=== PATIENT | female | born 1945 | race Caucasian/White ===

== ENCOUNTER → 2020-03-05 10:25 | Outpatient (BNVA) | payer MEDICARE, MEDICAID, SELFPAY | PROVIDERS: Visit Provider Family Medicine Adult Medicine | DX: I25.10 Atherosclerotic heart disease of native coronary artery without angina pectoris (principal); I10 Essential (primary) hypertension; E78.5 Hyperlipidemia, unspecified; Z00.00 Encounter for general adult medical examination without abnormal findings; R73.03 Prediabetes; E66.9 Obesity, unspecified; E03.9 Hypothyroidism, unspecified; N18.9 Chronic kidney disease, unspecified; N39.3 Stress incontinence (female) (male) | CPT/HCPCS: 80053; 80061; 83036; 84443; 85025 ==

== ENCOUNTER 2020-03-27 12:09 | Outpatient (CLI) | payer MEDICARE, MEDICAID, SELFPAY ==
--- NOTE | 2020-03-27 12:26 | MM_ITS ---
WS: [id number] BILATERAL DIGITAL SCREENING MAMMOGRAM WITH CAD CLINICAL INFORMATION: SCREEN HISTORY: Screening mammogram. No current complaints. COMPARISON: January 12, 2011 TECHNIQUE: Bilateral CC and MLO views. FINDINGS: Fatty-replaced breasts bilaterally. No suspicious focal mass, asymmetry, calcifications, or architecture internship ural distortion. No evidence of malignancy. A few stable punctate calcifications. MM/[place] [id number] IMPRESSION: BI-RADS: 2-Benign FOLLOW UP: 1 Year Follow-up Recommend return to annual screening mammography.
== END 2020-03-27 12:10 | disposition home or self-care (01) ==
LOC: RADSHAW 12:16
PROVIDERS: PCP Family Medicine Adult Medicine; Visit Provider Family Medicine Adult Medicine
DX: Z12.31 Encounter for screening mammogram for malignant neoplasm of breast (principal)
CPT/HCPCS: 77067

== ENCOUNTER → 2020-05-06 15:06 | Outpatient (BNVA) | payer MEDICARE, MEDICAID, SELFPAY | PROVIDERS: PCP Family Medicine Adult Medicine; Visit Provider Nurse Practitioner Family | DX: Z20.828 Contact with and (suspected) exposure to other viral communicable diseases (principal) | CPT/HCPCS: 87635 ==

== ENCOUNTER 2020-05-08 12:44 | Outpatient (CLI) | payer MEDICARE, MEDICAID, SELFPAY ==
[2020-05-08 13:05] VITALS: BP 187/77; PULSE 67; RESP 16
[2020-05-08 13:06] VITALS: BMI 37.4
--- NOTE | 2020-05-08 13:09 | AMB.MCA ---
Patient Information Referred by: Dr Atwood Symptom onset date: 05/02/20 COVID 19 common symptoms: positive headache(s) and loss of sense of smell and/or taste Criteria/Plan Inclusion/Exclusion Criteria weight >/= 40kg, + direct test </= 10 days ago and symptom onset </= 10 days ago age >/= 65, has diabetes, has chronic kidney disease and has immunosuppressive disease not requiring hospitalization, not requiring oxygen (if not chronically on oxygen) (96% RA) and no increase oxygen requirement (if chronically on oxygen) Patient education patient/caregiver received/reviewed fact sheet, Emergency Use Authorization/unapproved drug status discussed with patient/caregiver, alternatives to this treatment discussed with patient/caregiver, risks and benefits of medication reviewed with patient/caregiver, patient/caregiver given opportunity for questions, which were answered and patient/caregiver consents to receiving Monoclonal Antibody Treatment Plan for treatment Meets criteria for Monoclonal Antibody infusion Ordering Monoclonal Antibody infusion for today
[2020-05-08 14:01] VITALS: BP 168/81; PULSE 58; RESP 16; O2SAT 97
[2020-05-08 14:30] VITALS: PULSE 59; RESP 16; O2SAT 97
[2020-05-08 14:32] VITALS: BP 184/93
[2020-05-08 15:56] VITALS: BP 183/77; PULSE 63; RESP 18; O2SAT 98
--- NOTE | 2020-05-14 15:30 | DCPLANNER ---
Addendum entered by Ilsa Espinosa 05/21/20 13:44: communications project manager called patient to check on patient after getting the BAM infusion. Patient stated that she is still tired, sleepy, and weak. Her sense of smell is better. Patient stated that she is feeling better overall. Has not been admitted to hospital. Addendum entered by Ilsa Espinosa 05/14/20 15:32: communications project manager called to check on patient after receiving the BAM infusion. Patient stated that she is feeling much better, getting her sense of smell back. Original Note: communications project manager had message that patient received the BAM infusion, case management specialist called to check on patient on 05.09.20, and wrote in spreadsheet, but forgot to make note in patients chart. Late entry - Patient stated that she toloratated the infusion well. Stated that before the infusion she had no taste, no smell, had a sore throat, had a headache, has some weakness. After the infusion, patient stated that she felt about the same, no better or no worse at this time.
== END 2020-05-08 12:45 | disposition home or self-care (01) ==
LOC: OPS 12:48
PROVIDERS: PCP Family Medicine Adult Medicine; Visit Provider Nurse Practitioner Family
DX: U07.1 COVID-19 (principal)
CPT/HCPCS: 96365; J7050

== ENCOUNTER → 2020-08-26 11:43 | Outpatient (BNVA) | payer MEDICARE, MEDICAID, SELFPAY | PROVIDERS: PCP Family Medicine Adult Medicine; Visit Provider Family Medicine Adult Medicine | DX: R73.03 Prediabetes (principal); I25.10 Atherosclerotic heart disease of native coronary artery without angina pectoris; E78.5 Hyperlipidemia, unspecified; N18.9 Chronic kidney disease, unspecified; E03.9 Hypothyroidism, unspecified; E66.9 Obesity, unspecified | CPT/HCPCS: 80053; 80061; 83036; 84443; 85007; 85027 ==

== ENCOUNTER 2020-08-29 14:05 | Outpatient (CLI) | payer MEDICARE, MEDICAID, SELFPAY ==
--- NOTE | 2020-08-29 13:30 | XR_ITS ---
WS: [id number] HIP WITH PELVIS RIGHT TECHNIQUE: 3 views of the right hip with pelvis CLINICAL INFORMATION: Continued pain in right hip, hx of hip surgery 1 year ago. COMPARISON: None. FINDINGS: Right DOMINGO with acetabular screws. Hardware appears in good position. No evidence of hardware loosenin g. Osteopenia. XR/XR hip RT 2-3V wo/w pel* [id number] IMPRESSION: Right DOMINGO appears well seated.
== END 2020-08-29 14:06 | disposition home or self-care (01) ==
LOC: RADWPI 14:10
PROVIDERS: PCP Family Medicine Adult Medicine; Visit Provider Family Medicine Adult Medicine
DX: M25.551 Pain in right hip (principal); Z96.641 Presence of right artificial hip joint
CPT/HCPCS: 73502

== ENCOUNTER → 2020-09-17 10:55 | Outpatient (BNVA) | payer MEDICARE, MEDICAID, SELFPAY | PROVIDERS: PCP Family Medicine Adult Medicine; Visit Provider Obstetrics & Gynecology | DX: R39.9 Unspecified symptoms and signs involving the genitourinary system (principal); N39.0 Urinary tract infection, site not specified; N39.3 Stress incontinence (female) (male) | CPT/HCPCS: 84315; 87086 ==

== ENCOUNTER → 2020-10-24 11:49 | Outpatient (BNVA) | payer MEDICARE, MEDICAID, SELFPAY | PROVIDERS: PCP Family Medicine Adult Medicine; Visit Provider Family Medicine Adult Medicine | DX: E03.9 Hypothyroidism, unspecified (principal); I10 Essential (primary) hypertension; N18.30 Chronic kidney disease, stage 3 unspecified; R73.03 Prediabetes; E78.5 Hyperlipidemia, unspecified; I25.10 Atherosclerotic heart disease of native coronary artery without angina pectoris; J44.9 Chronic obstructive pulmonary disease, unspecified; K21.9 Gastro-esophageal reflux disease without esophagitis; Z09 Encounter for follow-up examination after completed treatment for conditions other than malignant neoplasm | CPT/HCPCS: 80053; 83036; 84443 ==

== ENCOUNTER 2020-10-31 10:56 | Outpatient (CLI) | payer MEDICARE, MEDICAID, SELFPAY ==
--- NOTE | 2020-10-31 11:03 | USCV_ITS ---
Mahnaz Magallanes Age: 75 Gender: F : 1945 Exam Date: 10/31/2020 11:23 Ordering Phys: Deandre Corbett MD Technologist: Luba Cutler Exam Location: [facility] [place]_ Indication: KNOWN AAA HISTORY: Diameter (cm) AP x Transverse x Length Velocity (cm/s) Waveform Prox Aorta: 0.00 x 1.81 x 75.20 Mid Aorta: 1.68 x 1.87 x 85.90 Distal Aorta: 3.16 x 3.64 x 6.05 223.10 Right Iliac Prox: 0.76 x 0.65 x 357.40 Left Iliac Prox: 0.73 x 0.60 x 413.90 Stent Prox Landing x x Aneurysmal Sac Max x x Lt Lat Sac Dim Rt Lat Sac Dim Stent Dist Landing x x Right Iliac Stent x x Left Iliac Stent x x Right Renal Art Left Renal Art FINDINGS: Aneurysmal dilatation of the distal abdominal aorta measuring 3.16 x 3.64 cm. Elevated velocity in the distal abdominal aorta Markedly elevated velocities in the proximal common iliac arteries bilaterally CONCLUSIONS 1. Small infrarenal abdominal aortic aneurysm measuring 3.16 x 3.64 cm. 2. Markedly elevated Doppler flow velocities in the proximal common iliac arteries bilaterally, suggestive of greater than 70% stenosis. Consider CTA, to better evaluate the distal abdominal aorta and the proximal common iliac arteries. No similar previous studies are available for comparison Dr Lauren Garcia MD [facility] (Electronically Signed) Final Date: 01 November 2020 09:47 S
== END 2020-10-31 10:57 | disposition home or self-care (01) ==
LOC: RAD 11:00
PROVIDERS: PCP Family Medicine Adult Medicine; Visit Provider Family Medicine Adult Medicine
DX: I71.4 Abdominal aortic aneurysm, without rupture (principal)
CPT/HCPCS: 76706

== ENCOUNTER 2020-11-01 18:31 | Emergency (ER) | payer MEDICARE, MEDICAID, SELFPAY ==
[2020-11-01 19:13] VITALS: BP 188/103; PULSE 64; RESP 17; TEMP 36.7; O2SAT 94; BMI 37.0
[2020-11-01 20:27] VITALS: BP 206/104; PULSE 69; RESP 18; O2SAT 96
--- NOTE | 2020-11-01 20:39 | CTR_ITS ---
PROCEDURE INFORMATION: Exam: CT Head Without Contrast Exam date and time: 11/01/2020 8:39 PM Age: 75 years old Clinical indication: Pain; Headache; Additional info: Headache hypertension TECHNIQUE: Imaging protocol: Computed tomography of the head without contrast. Radiation optimization: All CT scans at this facility use at least one of these dose optimization techniques: automated exposure control; mA and/or kV adjustment per patient size (includes targeted exams where dose is matched to clinical indication); or iterative reconstruction. COMPARISON: No relevant prior studies available. RADIATION DOSE METRICS: Total DLP (mGy-cm): 870.45 FINDINGS: Brain: No acute intracranial hemorrhage or mass effect. There is decreased attenuation in the periventricular white matter, likely from microvascular disease. There is a very small old lacunar infarct in the left basal ganglia region. No definite acute infarct by CT. Cerebral ventricles: Ventricle size is normal for age. Paranasal sinuses: Included paranasal sinuses are essentially clear. Mastoid air cells: No significant acute finding. Bones/joints: No definite acute skull fracture. CT/CT head wo con* [id number] IMPRESSION: 1. No acute intracranial hemorrhage or mass effect. 2. Changes of microvascular disease, and very small old left lacunar infarct. 3. Other findings discussed above. Radiation Dose CTDIVOL = (mGy): DLP = 870.45 (mGy-cm)
--- NOTE | 2020-11-01 20:40 | ECG_ITS ---
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 Measurements Intervals Crooks Rate: 69 P: 60 AZ: 246 QRS: -2 QRSD: 94 T: 72 QT: 413 QTc: 444 Interpretive Statements SINUS RHYTHM WITH FIRST DEGREE AV BLOCK POSSIBLE LEFT ATRIAL ENLARGEMENT [-0.1mV P WAVE IN V1/V2] LOW QRS VOLTAGE IN PRECORDIAL LEADS [QRS DEFLECTION < 1.0 mV IN CHEST LEADS] Compared to ECG 09/14/2014 23:02:04 First degree AV block now present ST (T wave) deviation no longer present Electronically Signed On 11-01-2020 22:22:33 CDT by Tracy Wang M.D. [id number]
[2020-11-01] MEDS: enalaprilat 1.25 mg/mL Inj IVP (21:07)
[2020-11-01 21:17] LABS: Basophils # 0.1 10^3/uL (0.0-0.1); Eosinophils # 0.7 10^3/uL (0.0-0.8); Eosinophils % 8.5 %; Hematocrit 33.5 % (37.0-47.0); Hemoglobin 11.3 g/dL (11.5-15.3); Lymphocytes # 2.3 10^3/uL (0.8-4.8); Lymphocytes % 26.5 %; Mean Corpuscular HGB Conc 33.7 g/dL (30.0-36.0); Mean Corpuscular Hemoglobin 30.6 pg (28.0-34.0); Mean Corpuscular Volume 90.8 fL (81-99); Monocytes # 0.9 10^3/uL (0.2-0.9); Monocytes % 10.8 %; Neutrophils # 4.58 10^3/uL (1.8-7.7); Neutrophils % 53.1 %; Nucleated Red Blood Cells % 0 %; Platelet Count 249 10^3/cmm (130-400); Red Blood Count 3.69 10^6/uL (4.1-5.3); Red Cell Distribution Width 12.8 % (12.1-15.1); White Blood Count 8.6 10^3/uL (4.0-10.0)
[2020-11-01 21:35] VITALS: BP 168/76; PULSE 71; RESP 20; O2SAT 98
[2020-11-01 21:40] LABS: Protein Urine Trace (Negative); Urine Appearance Clear (CLEAR); Urine Color Straw (Yellow); pH Urine 7 (5-7)
[2020-11-01 21:41] LABS: Add Urine Microscopic? YES; Bilirubin Urine Neg (Negative); Blood Urine Neg (Negative); Glucose Urine UA Norm (Normal); Ketones Urine Negative (Negative); Leukocyte Esterase Urine Negative (Negative); Nitrate Urine Negative (Negative); Urobilinogen Urine Norm (Negative)
[2020-11-01 21:46] LABS: Troponin(5th) Baseline 9 ng/L (0-10)
--- NOTE | 2020-11-01 21:52 | ED_ITS ---
HPI - General Adult General: Chief complaint: General Medical Stated complaint: BP High Time Seen by Provider: 11/01/20 20:39 History of Present Illness: HPI narrative: 75-year-old female with a history of multiple medical problems including hypertension. She presents with blood pressures at home of 240/119. She has had a headache, and and neck ache for most of the day. They were also concerned about an abdominal aortic aneurysm, that was ultrasounded yesterday. The patient says she has had belly pain on and off, but this is a chronic thing, and it has not increased lately. Onset (ago): hour(s) Location: head and neck Radiation: non-radiation Severity: moderate Pain Consistency: constant Relieving factors: none Exacerbating factors: none Associated symptoms: Reports headache(s) and nausea; Deny chest pain, confusion, cough, diaphoresis, dyspnea, fevers/chills, rash or short of breath Review of Systems Const: Denies: diaphoresis Eyes: Denies: change in vision ENMT: Denies: odynophagia or sinus pain Card: Denies: chest pain Resp: Denies: dyspnea GI: Reports: nausea : Denies: dysuria Musc: Reports: neck pain; Denies: back pain Skin/Breast: Denies: rash or erythema Neuro: Reports: headache(s); Denies: confusion Psych: Denies: anxiety PFSH ED PFSH: Medical History AAA (abdominal aortic aneurysm) CAD (coronary artery disease) CKD (chronic kidney disease) stage 3, GFR 30-59 ml/min COPD (chronic obstructive pulmonary disease) Depression Fibromyalgia GERD (gastroesophageal reflux disease) History of 2019 novel coronavirus disease (COVID-19) HTN (hypertension) Hx of myocardial infarction Hyperlipidemia Hypothyroidism Obesity (BMI 35.0-39.9 without comorbidity) Prediabetes Rheumatoid arthritis Stress incontinence in female Wellness examination Surgical History History of bilateral cataract extraction History of hip replacement History of right shoulder replacement Hx of cholecystectomy Family History Other CAD (coronary artery disease) Cancer Diabetes Social History (Reviewed 09/17/20 @ 08:36 by MALU Villafana Smoking and tobacco status: current every day smoker e-cigarettes E-Cigarette Details: vaporizer device Alcohol intake: current Alcohol intake frequency: holidays/special occasions only Current occupational status: disabled Physical Exam Const: GENERAL APPEARANCE: well developed ORIENTATION/CONSCIOUSNESS: Yes oriented to person, Yes oriented to place and Yes oriented to time HENMT: COMMON NORMALS: normocephalic, external ears normal and Normal external nose present HEAD & SCALP: normocephalic FACE & SINUS: normal facial exam NOSE: Normal external nose present and No nasal discharge present EXTERNAL EAR: Yes external ears normal Eye: COMMON NORMALS: Equal, round and reactive pupils present, EOMs intact bilaterally and conjunctivae normal EYELID: eyelids normal CONJUNCTIVA: Yes conjunctivae normal PUPIL: Yes Equal, round and reactive pupils present Neck/C-Spine: GENERAL: No tracheal deviation Chest: COMMONS NORMALS: normal inspection of the chest CHEST: No tenderness Resp: COMMON NORMALS: clear to auscultation bilaterally EFFORT & INSPECTION: No tachypneic, No respiratory distress, No retractions, No uses accessory muscles and No tracheal deviation AUSCULTATION: clear to auscultation bilaterally, no rhonchi, no wheezes and lung sounds not diminished Cardio: COMMON NORMALS: regular rate and regular rhythm RATE: regular rate RHYTHM: regular rhythm HEART SOUNDS: Murmur heart sound present PERIPHERAL PULSES: radial pulses present GI: INSPECTION: No abdominal distension AUSCULTATION: No Hyperactive bowel sounds present and No Hypoactive bowel sounds present PALPATION: Yes Tenderness to palpation present (GI) (Mild diffuse), No Guarding due to palpation present (GI) and No Rigid due to palpation PERCUSSION: no dullness to percussion and no tympanic to percussion Neuro: SENSORIUM/ORIENTATION: Yes oriented to person, Yes oriented to place and Yes oriented to time Psych: COMMON NORMALS: mental status grossly normal Skin: COMMON NORMALS: no rashes or lesions noted GENERAL SKIN EXAM: no rashes or lesions noted Course Vital Signs: Vital signs: Vital Signs Temperature 98.1 F 11/01/20 19:13 Pulse Rate 70 11/01/20 22:58 Respiratory Rate 18 11/01/20 22:58 Blood Pressure 143/71 11/01/20 22:37 Pulse Oximetry 96 11/01/20 22:58 MDM - General Adult MDM Narrative: Medical decision making narrative: 75-year-old female with hypertension, headache, and concern over abdominal aneurysm scanned yesterday. Abdominal aneurysm is 3.6 cm. Family was told about the potential for peripheral vascular disease with distal abdominal aorta or iliac disease, and outpatient follow-up need for possible CTA related to that. She has a significant murmur on exam, which she says she has had for years . Enalaprilat seem to help her blood pressure significantly. We will write a prescription for lisinopril, have her check twice daily, and start the medication if blood pressure remains high. Lab Data: Labs: Lab Results 11/01/20 11/01/20 11/01/20 Range/Units 21:05 21:05 21:05 WBC 8.6 (4.0-10.0) 10^3/ uL RBC 3.69 L (4.1-5.3) 10^6/u L Hgb 11.3 L (11.5-15.3) g/dL Hct 33.5 L (37.0-47.0) % MCV 90.8 (81-99) fL MCH 30.6 (28.0-34.0) pg MCHC 33.7 (30.0-36.0) g/dL RDW 12.8 (12.1-15.1) % Plt Count 249 (130-400) 10^3/c mm MPV 11.0 H (7.4-10.4) fL Neut % (Auto) 53.1 % Lymph % (Auto) 26.5 % Wagoner % (Auto) 10.8 % Eos % (Auto) 8.5 % Baso % (Auto) 1.0 % Neut # (Auto) 4.58 (1.8-7.7) 10^3/u L Lymph # (Auto) 2.3 (0.8-4.8) 10^3/u L Wagoner # (Auto) 0.9 (0.2-0.9) 10^3/u L Eos # (Auto) 0.7 (0.0-0.8) 10^3/u L Baso # (Auto) 0.1 (0.0-0.1) 10^3/u L Nucleated RBC % (a uto) 0 % Nucleated RBCs # 0.0 /100WBC Sodium 132 L (136-145) mmol/L Potassium 4.5 (3.5-5.1) mmol/L Chloride 95 L (98-107) mmol/L Carbon Dioxide 25 (22-29) mmol/L Anion Gap 16.5 (5-19) BUN 30 H (8-23) mg/dL Creatinine 1.9 H (0.5-0.9) mg/dL GFR Calculation Not Reportable Glucose 103 (65-115) mg/dL Calculated Osmolal ity 280 L (285-295) mOsm/k g Calcium 9.1 (8.5-10.5) mg/dL Troponin T Baselin e 9 (0-10) ng/L NT-Pro-B Natriuret Pep 580 H (0-125) pg/mL Urine Color (Yellow) Urine Appearance (CLEAR) Urine pH (5-7) Ur Specific Gravit y (1.005-1.030) Urine Protein (Negative) Urine Glucose (UA) (Normal) Urine Ketones (Negative) Urine Blood (Negative) Urine Nitrate (Negative) Urine Bilirubin (Negative) Urine Urobilinogen (Negative) mg/dL Ur Leukocyte Jessica ase (Negative) Urine RBC (0-2) /hpf Urine WBC (0-5) /hpf Ur Squamous Epith Cells (0-5) /hpf Amorphous Sediment Urine Bacteria (NONE) /hpf 11/01/20 Range/Units 21:25 WBC (4.0-10.0) 10^3/ uL RBC (4.1-5.3) 10^6/u L Hgb (11.5-15.3) g/dL Hct (37.0-47.0) % MCV (81-99) fL MCH (28.0-34.0) pg MCHC (30.0-36.0) g/dL RDW (12.1-15.1) % Plt Count (130-400) 10^3/c mm MPV (7.4-10.4) fL Neut % (Auto) % Lymph % (Auto) % Wagoner % (Auto) % Eos % (Auto) % Baso % (Auto) % Neut # (Auto) (1.8-7.7) 10^3/u L Lymph # (Auto) (0.8-4.8) 10^3/u L Wagoner # (Auto) (0.2-0.9) 10^3/u L Eos # (Auto) (0.0-0.8) 10^3/u L Baso # (Auto) (0.0-0.1) 10^3/u L Nucleated RBC % (a uto) % Nucleated RBCs # /100WBC Sodium (136-145) mmol/L Potassium (3.5-5.1) mmol/L Chloride (98-107) mmol/L Carbon Dioxide (22-29) mmol/L Anion Gap (5-19) BUN (8-23) mg/dL Creatinine (0.5-0.9) mg/dL GFR Calculation Glucose (65-115) mg/dL Calculated Osmolal ity (285-295) mOsm/k g Calcium (8.5-10.5) mg/dL Troponin T Baselin e (0-10) ng/L NT-Pro-B Natriuret Pep (0-125) pg/mL Urine Color Straw (Yellow) Urine Appearance Clear (CLEAR) Urine pH 7 (5-7) Ur Specific Gravit y 1.000 L (1.005-1.030) Urine Protein Trace (Negative) Urine Glucose (UA) Norm (Normal) Urine Ketones Negative (Negative) Urine Blood Neg (Negative) Urine Nitrate Negative (Negative) Urine Bilirubin Neg (Negative) Urine Urobilinogen Norm (Negative) mg/dL Ur Leukocyte Jessica ase Negative (Negative) Urine RBC 0-4 H (0-2) /hpf Urine WBC 0-4 H (0-5) /hpf Ur Squamous Epith Cells 0-4 H (0-5) /hpf Amorphous Sediment Not Reportable Urine Bacteria Trace (NONE) /hpf Discharge Plan Discharge Patient Disposition: Home Clinical Impression: Hypertensive urgency Condition: Stable Prescriptions: New lisinopril 10 mg tablet 10 mg PO DAILY Qty: 30 RF: 0 No Action cholecalciferol (vitamin D3) 1 tab PO DAILY@1000 RF: 0 multivitamin Tablet 1 tab PO DAILY@1000 RF: 0 ipratropium bromide 17 mcg/actuation HFA aerosol inhaler 1 puff INHALATION QID Qty: 12.9 RF: 5 pantoprazole [Protonix] 40 mg tablet,delayed release (DR/EC) 40 mg PO BID Qty: 180 RF: 3 nitroglycerin 0.4 mg tablet, sublingual 0.4 mg SUBLINGUAL Q5M PRN (Reason: Chest Pain) Qty: 20 RF: 3 alprazolam 0.5 mg tablet 0.5 mg PO DAILY PRN (Reason: anxiety) RF: 0 acetaminophen [Tylenol Extra Strength] 500 mg tablet 500 mg PO Q6H PRN (Reason: Pain) RF: 0 furosemide [Lasix] 20 mg tablet 20 mg PO DAILY PRN (Reason: edema) Qty: 90 RF: 3 Advair Diskus 500-50 mcg/dose blister with device 1 inh INHALATION BID RF: 0 Combivent Respimat 20-100 mcg/actuation mist 1 puff INHALATION QID RF: 0 Fish Oil 1 cap PO TID RF: 0 trazodone 50 mg tablet 50 mg PO BEDTIME@2200 RF: 0 Ditropan XL 10 mg tablet extended release 24hr 10 mg PO DAILY@1000 RF: 0 aspirin 81 mg tablet,delayed release (DR/EC) 81 mg PO DAILY@1000 RF: 0 levothyroxine 75 mcg tablet 75 mcg PO DAILY@1000 RF: 0 amlodipine 10 mg tablet 10 mg PO DAILY@1000 RF: 0 metoprolol tartrate 50 mg tablet 50 mg PO TID RF: 0 rosuvastatin 40 mg tablet 40 mg PO DAILY@1000 RF: 0 duloxetine 20 mg capsule,delayed release(DR/EC) 40 mg PO DAILY@1000 RF: 0 Discharge Orders: Discharge ED (Routine); Ordered 11/01/20 Ordered By: Hernesto Carmichael Referrals: Deandre Corbett MD [Primary Care Provider] - 4-7 days Discharge Diet: Advance as tolerated Patient Instructions: Hypertension (ED) Activity Restrictions/Additional Instructions: Return for mental status change, vomiting, headache, chest discomfort, syncope or passing out, any other concerning symptoms. Check your blood pressure twice daily, if the top number remains above 150, fill the medication you were given, and begin to take. Continue to take pressures after starting the medication. A case management referral for outpatient cardiology has been placed for you. Coding Level of Care Code ED Frit Maker for Yuli Fwd Exam Comprehensive
[2020-11-01 21:53] LABS: Blood Urea Nitrogen 30 mg/dL (8-23); Calcium 9.1 mg/dL (8.5-10.5); Carbon Dioxide 25 mmol/L (22-29); Chloride 95 mmol/L (98-107); Glucose 103 mg/dL (65-115); NT Pro B Type Natriuretic Pept 580 pg/mL (0-125); Osmolality Calculated 280 mOsm/kg (285-295); Sodium 132 mmol/L (136-145)
[2020-11-01 21:59] LABS: Add Urine Culture? No; Bacteria Urine TRACE /hpf; RBC Urine 0-4 /hpf (0-2); Squamous Epithelial Cell Urine 0-4 /hpf (0-5); WBC Urine 0-4 /hpf (0-5)
[2020-11-01 22:01] LABS: Anion Gap 16.5 (5-19); Potassium 4.5 mmol/L (3.5-5.1)
[2020-11-01 22:37] VITALS: BP 143/71; PULSE 68; RESP 18; O2SAT 95
[2020-11-01 22:58] VITALS: PULSE 70; RESP 18; O2SAT 96
--- NOTE | 2020-11-04 08:57 | DCPLANNER ---
Addendum entered by Ilsa Espinosa 11/04/20 09:03: left appointment information on daughter, Rina, voicemail. Original Note: senior manager mergers & acquisitions had message to schedule a follow up appointment for patient with [facility]. senior manager mergers & acquisitions called [facility], spoke with Carolina, a follow up appointment was scheduled for Wednesday, November 06, 2020 at 2:[address] Powell. senior manager mergers & acquisitions called phone number [phone], unable to speak with patient at this time a voicemail was left for patient to return registered nurse hh case manager phone call.
--- NOTE | 2020-11-20 07:17 | DCPLANNER ---
Patient had a follow up appointment scheduled for 11.06.[address] Powell at [facility] - patient did attend appointment.
== END 2020-11-01 23:00 | disposition home or self-care (01) ==
PROVIDERS: Emergency Provider Emergency Medicine; PCP Family Medicine Adult Medicine
DX: I16.0 Hypertensive urgency (principal); Z79.82 Long term (current) use of aspirin; I25.10 Atherosclerotic heart disease of native coronary artery without angina pectoris; I12.9 Hypertensive chronic kidney disease with stage 1 through stage 4 chronic kidney disease, or unspecified chronic kidney disease; N18.30 Chronic kidney disease, stage 3 unspecified; J44.9 Chronic obstructive pulmonary disease, unspecified; I25.2 Old myocardial infarction; E78.5 Hyperlipidemia, unspecified; F17.290 Nicotine dependence, other tobacco product, uncomplicated
CPT/HCPCS: 70450; 80048; 81001; 83880; 84484; 85025; 93005; 96374; 99284; J3490

== ENCOUNTER 2020-11-25 10:01 | Outpatient (CLI) | payer MEDICARE, MEDICAID, SELFPAY ==
[2020-11-25 11:14] LABS: Blood Urea Nitrogen 39 mg/dL (8-23)
== END 2020-11-25 10:02 | disposition home or self-care (01) ==
PROVIDERS: Radiology Diagnostic Radiology; PCP Family Medicine Adult Medicine; Visit Provider Family Medicine Adult Medicine
DX: I77.1 Stricture of artery (principal)
CPT/HCPCS: 82565; 84520

== ENCOUNTER → 2020-12-02 14:48 | Outpatient (BNVA) | payer MEDICARE, MEDICAID, SELFPAY | PROVIDERS: PCP Family Medicine Adult Medicine; Visit Provider Family Medicine Adult Medicine | DX: N39.46 Mixed incontinence (principal); E66.9 Obesity, unspecified; Z71.1 Person with feared health complaint in whom no diagnosis is made; N18.30 Chronic kidney disease, stage 3 unspecified; R73.03 Prediabetes; I10 Essential (primary) hypertension | CPT/HCPCS: 81000 ==

== ENCOUNTER → 2020-12-16 16:12 | Outpatient (BNVA) | payer MEDICARE, MEDICAID, SELFPAY | PROVIDERS: PCP Family Medicine Adult Medicine; Visit Provider Nurse Practitioner Family | DX: N18.30 Chronic kidney disease, stage 3 unspecified (principal); N39.46 Mixed incontinence | CPT/HCPCS: 81003; 87086 ==

== ENCOUNTER → 2021-01-23 13:38 | Outpatient (BNVA) | payer MEDICARE, MEDICAID, SELFPAY | PROVIDERS: PCP Family Medicine Adult Medicine; Visit Provider Family Medicine Adult Medicine | DX: N18.30 Chronic kidney disease, stage 3 unspecified (principal) | CPT/HCPCS: 80053 ==

== ENCOUNTER → 2021-02-04 13:27 | Outpatient (BNVA) | payer MEDICARE, MEDICAID, SELFPAY | PROVIDERS: PCP Family Medicine Adult Medicine; Visit Provider Urology | DX: N39.0 Urinary tract infection, site not specified (principal) | CPT/HCPCS: 81003; 87077; 87086; 87184 ==

== ENCOUNTER → 2021-02-20 15:04 | Outpatient (BNVA) | payer MEDICARE, MEDICAID, SELFPAY | PROVIDERS: PCP Family Medicine Adult Medicine; Referring Provider Family Medicine Adult Medicine; Visit Provider Podiatrist Foot & Ankle Surgery | DX: M21.969 Unspecified acquired deformity of unspecified lower leg (principal) | CPT/HCPCS: 73630 ==

== ENCOUNTER → 2021-03-12 15:32 | Outpatient (BNVA) | payer MEDICARE, MEDICAID, SELFPAY | PROVIDERS: PCP Family Medicine Adult Medicine; Visit Provider Family Medicine Adult Medicine | DX: U07.1 COVID-19 (principal); Z20.822 Contact with and (suspected) exposure to COVID-19 | CPT/HCPCS: 87635 ==

== ENCOUNTER 2021-03-19 14:46 | Outpatient (CLI) | payer MEDICARE, MEDICAID, SELFPAY ==
[2021-03-19 16:56] LABS: Creatinine Urine, Random 132 mg/dL (28-217)
[2021-03-19 17:10] LABS: Microalbum Creatinine Ratio Ur 1114 mg/dL (0-20); Microalbumin Random Urine 147 ug/dL (0-20)
[2021-03-19 20:10] LABS: Albumin Level 4.4 g/dL (3.5-5.2); Anion Gap 17.2 (5-19); Blood Urea Nitrogen 32 mg/dL (8-23); Calcium 9.8 mg/dL (8.5-10.5); Carbon Dioxide 26 mmol/L (22-29); Chloride 100 mmol/L (98-107); Glucose 88 mg/dL (65-115); Phosphorus 4.3 mg/dL (2.5-4.5); Potassium 5.2 mmol/L (3.5-5.1); Sodium 138 mmol/L (136-145)
[2021-03-20 10:48] LABS: PROTEIN, TOTAL 7.5 g/dL (6.1-8.1)
[2021-03-20 13:12] LABS: KAPPA LIGHT CHAIN, FREE, SERUM 71.8 mg/L (3.3-19.4); KAPPA/LAMBDA LIGHT CHAINS FREE 1.84 (0.26-1.65); LAMBDA LIGHT CHAIN, FREE, SERU 39.1 mg/L (5.7-26.3)
[2021-03-20 13:33] LABS: ALBUMIN 3.9 g/dL (3.8-4.8); ALPHA 1 GLOBULIN 0.3 g/dL (0.2-0.3); ALPHA 2 GLOBULIN 1.1 g/dL (0.5-0.9); BETA 1 GLOBULIN 0.5 g/dL (0.4-0.6); BETA 2 GLOBULIN 0.6 g/dL (0.2-0.5); GAMMA GLOBULIN 1.3 g/dL (0.8-1.7)
== END 2021-03-19 14:47 | disposition home or self-care (01) ==
PROVIDERS: PCP Family Medicine Adult Medicine; Visit Provider Internal Medicine Nephrology
DX: N18.4 Chronic kidney disease, stage 4 (severe) (principal)
CPT/HCPCS: 36415; 80069; 82044; 83883; 84155; 84165

== ENCOUNTER → 2021-04-02 14:47 | Outpatient (BNVA) | payer MEDICARE, MEDICAID, SELFPAY | PROVIDERS: PCP Family Medicine Adult Medicine; Visit Provider Orthopaedic Surgery | DX: M17.0 Bilateral primary osteoarthritis of knee (principal) | CPT/HCPCS: 73560; 73565 ==

== ENCOUNTER → 2021-04-30 14:27 | Outpatient (BNVA) | payer MEDICARE, MEDICAID, SELFPAY | PROVIDERS: PCP Family Medicine Adult Medicine; Visit Provider Family Medicine Adult Medicine | DX: R73.03 Prediabetes (principal); E03.9 Hypothyroidism, unspecified; I12.9 Hypertensive chronic kidney disease with stage 1 through stage 4 chronic kidney disease, or unspecified chronic kidney disease; N18.30 Chronic kidney disease, stage 3 unspecified; Z68.38 Body mass index [BMI] 38.0-38.9, adult | CPT/HCPCS: 80053; 83036; 84443 ==

== ENCOUNTER 2021-05-14 15:22 | Outpatient (CLI) | payer MEDICARE, MEDICAID, SELFPAY ==
--- NOTE | 2021-05-14 15:27 | US_ITS ---
WS: [id number] ULTRASOUND RENAL TECHNIQUE: Ultrasound examination of both kidneys. CLINICAL INFORMATION: CHRONIC KIDNEY DISEASE STAGE 4 COMPARISON: None. FINDINGS: RIGHT: Right kidney is atrophic Echogenicity: Normal. Hydronephrosis: None. Perinephric fluid: None. Right kidney measures: 7.3 cm x 4.1 cm x 4.1 cm. LEFT: Simple appearing inferior pole left renal cyst measuring 1.2 x 1.2 CM. Left mid renal simple cy st measuring 2.4 x 2.1 cm. Additional superior pole simple renal cyst measuring 2.2 x 1.4 cm. Left kidney is normal in size and appearance. Echogenicity: Normal. Cortical thickness: 1.5 cm; Normal. Hydronephrosis: None. Perinephric fluid: None. Left kidney measures: 10.3 cm x 5.0 cm x 4.9 cm. Infrarenal abdominal aortic aneurysm measuring 3.7 x 3.3 cm US/US renal BI* [id number] IMPRESSION: 1. Atrophic right kidney. Normal left kidney. 2. No hydronephrosis in either kidney. 3. Simple left renal cysts as described above. 4. Infrarenal abdominal aortic aneurysm measuring 3.7 x 3.3 cm
== END 2021-05-14 15:23 | disposition home or self-care (01) ==
LOC: RAD 15:24
PROVIDERS: PCP Family Medicine Adult Medicine; Visit Provider Internal Medicine Nephrology
DX: N18.4 Chronic kidney disease, stage 4 (severe) (principal); I71.4 Abdominal aortic aneurysm, without rupture; N28.1 Cyst of kidney, acquired; N26.1 Atrophy of kidney (terminal)
CPT/HCPCS: 76770

== ENCOUNTER → 2021-06-06 15:03 | Outpatient (BNVA) | payer MEDICARE, MEDICAID, SELFPAY | PROVIDERS: PCP Family Medicine Adult Medicine; Visit Provider Family Medicine Adult Medicine | DX: N39.0 Urinary tract infection, site not specified (principal) | CPT/HCPCS: 81000 ==

== ENCOUNTER 2021-06-11 12:59 | Outpatient (CLI) | payer MEDICARE, MEDICAID, SELFPAY ==
--- NOTE | 2021-06-11 12:45 | USCV_ITS ---
Mahnaz Magallanes Age: 75 Gender: F : 1945 Exam Date: 06/11/2021 13:33 Ordering Phys: Reinaldo Shore MD ([email or web address]) Technologist: NAYANA Exam Location: [facility] [place] Indication: SOB BP: 140 / 77 HR: 63 Rhythm: Sinus Technical Quality: Technically difficult study MEASUREMENTS (Male / Female) Normal Values 2D ECHO LV Diastolic Diameter PLAX 2.2 cm 4.2 - 5.9 / 3.9 - 5.3 cm LV Systolic Diameter PLAX 1.2 cm IVS Diastolic Thickness 1.3 cm 0.6 - 1.0 / 0.6 - 0.9 cm IVS Systolic Thickness 2.1 cm LVPW Diastolic Thickness 1.9 cm 0.6 - 1.0 / 0.6 - 0.9 cm LVPW Systolic Thickness 1.7 cm LVOT Diameter 2.0 cm LV Ejection Fraction 2D Teich 81.5 % LV Ejection Fraction MOD 2C 73.0 % LV Ejection Fraction 2C AL 74.9 % LA Diameter 3.8 cm LA Width 4.4 cm LA Height 5.8 cm RA Width 2.8 cm RA Height 4.2 cm Aorta at Sinotubular Diameter 2.1 cm M-MODE Aortic Annulus Diameter 3.1 cm LA Ao Ratio MM 1.3 DOPPLER AV Peak Velocity 245.5 cm/s LVOT Peak Velocity 124.7 cm/s AV Area Cont Eq vti 1.6 cm squared AV Area Cont Eq pk 1.6 cm squared MV Peak Velocity 209.0 cm/s MV Area PHT 2.0 cm squared Mitral E to A Ratio 0.8 MV E' Velocity 77.0 cm/s Mitral E to MV E' Ratio 25.1 Mitral E to LV E' Lateral Ratio 26.4 Mitral E to LV E' Septal Ratio 23.8 TR Peak Velocity 318.5 cm/s TR Peak Gradient 40.6 mmHg TR Mean Velocity 229.6 cm/s TR Mean Gradient 24.7 mmHg TR Velocity Time Integral 106.2 cm TV Peak E Velocity 64.0 cm/s Right Atrial Pressure 3.0 mmHg Pulmonary Artery Systolic Pressu 43.6 mmHg PV Peak Velocity 125.0 cm/s RV Acceleration Time 0.2 s RV Ejection Time 0.3 s RV AcT/ET 0.5 FINDINGS Left Ventricle Normal left ventricular cavity size. Normal left ventricular systolic function. No regional wall motion abnormalities. Left ventricular ejection fraction is estimated at 65 %. Grade I/IV diastolic dysfunction (abnormal relaxation filling pattern), normal to mildly elevated filling pressures. Right Ventricle Normal right ventricular size. RVSP could not be calculated due to incomplete tricuspid regurgitation velocity profile. Right Atrium The right atrium is normal in size. Left Atrium Mildly increased left atrial size. Mitral Valve Severely thickened mitral valve. Moderate mitral annular calcification. No mitral valve stenosis. Moderate mitral valve regurgitation. Aortic Valve Severe aortic valve calcification. Moderate aortic valve stenosis, mean gradient 13.5 mmHg, EM 1.6 cm squared. Trace aortic valve regurgitation. Tricuspid Valve Structurally normal tricuspid valve without significant stenosis or regurgitation. Pulmonary artery systolic pressure is normal. Pulmonic Valve Structurally normal pulmonic valve without significant stenosis. There is no pulmonic regurgitation. Pericardium Normal pericardium without effusion. Aorta Normal ascending aorta dimension. CONCLUSIONS 1-Normal left ventricular cavity size. Normal left ventricular systolic function. No regional wall motion abnormalities. Left ventricular ejection fraction is estimated at 65 %. Grade I/IV diastolic dysfunction (abnormal relaxation filling pattern), normal to mildly elevated filling pressures. 2-Normal right ventricular size. RVSP could not be calculated due to incomplete tricuspid regurgitation velocity profile. 3-Mildly increased left atrial size. 4-Severely thickened mitral valve. Moderate mitral annular calcification. No mitral valve stenosis. Moderate mitral valve regurgitation. 5-Severe aortic valve calcification. Moderate aortic valve stenosis, mean gradient 13.5 mmHg, EM 1.6 cm squared. Trace aortic valve regurgitation. 6-There is no pericardial effusion. 7-Right atrial pressure is around 5 mm of mercury. 8-There are no prior echocardiogram studies to compare. Reinaldo Shore MD (Electronically Signed) Final Date: 11 June 2021 18:43 S
== END 2021-06-11 13:00 | disposition home or self-care (01) ==
LOC: RAD 13:06
PROVIDERS: PCP Family Medicine Adult Medicine; Visit Provider Internal Medicine Cardiovascular Disease
DX: R06.02 Shortness of breath (principal); R01.1 Cardiac murmur, unspecified; I35.0 Nonrheumatic aortic (valve) stenosis; I34.0 Nonrheumatic mitral (valve) insufficiency
CPT/HCPCS: 93306

== ENCOUNTER → 2021-09-23 14:56 | Outpatient (BNVA) | payer MEDICARE, MEDICAID, SELFPAY | PROVIDERS: PCP Family Medicine Adult Medicine; Visit Provider Internal Medicine | DX: I73.9 Peripheral vascular disease, unspecified (principal); I71.4 Abdominal aortic aneurysm, without rupture; I25.10 Atherosclerotic heart disease of native coronary artery without angina pectoris; I10 Essential (primary) hypertension; E78.00 Pure hypercholesterolemia, unspecified; D64.9 Anemia, unspecified; R30.0 Dysuria; F17.290 Nicotine dependence, other tobacco product, uncomplicated | CPT/HCPCS: 80053; 80061; 81001; 85025; 99214 ==

== ENCOUNTER 2021-11-24 11:33 | Outpatient (CLI) | payer MEDICARE, MEDICAID, SELFPAY ==
[2021-11-24 13:29] LABS: Blood Urea Nitrogen 29 mg/dL (8-23); Calcium 9.1 mg/dL (8.5-10.5); Carbon Dioxide 23 mmol/L (22-29); Chloride 98 mmol/L (98-107); Glucose 84 mg/dL (65-115); Phosphorus 4.5 mg/dL (2.5-4.5); Sodium 135 mmol/L (136-145)
[2021-11-24 13:32] LABS: Anion Gap 18.5 (5-19); Potassium 4.5 mmol/L (3.5-5.1)
== END 2021-11-24 11:34 | disposition home or self-care (01) ==
LOC: LAB 11:35
PROVIDERS: PCP Family Medicine Adult Medicine; Visit Provider Internal Medicine Nephrology
DX: N18.4 Chronic kidney disease, stage 4 (severe) (principal)
CPT/HCPCS: 36415; 80069

== ENCOUNTER 2022-01-07 06:56 | Outpatient (CLI) | payer MEDICARE, MEDICAID, SELFPAY ==
--- NOTE | 2022-01-07 07:15 | USCV_ITS ---
Mahnaz Magallanes Age: 76 Gender: F : 1945 Exam Date: 01/07/2022 07:15 Ordering Phys: Shan Zamarripa M.D ([email or web address]) Technologist: GLORIA Exam Location: [facility] [place] Indication: AAA HISTORY: Diameter (cm) AP x Transverse x Length Velocity (cm/s) Waveform Prox Aorta: 2.16 x 1.88 x 133.20 Mid Aorta: 3.12 x 2.81 x 131.80 Distal Aorta: 3.18 x 3.73 x 133.20 Right Iliac Prox: 1.06 x 1.20 x 148.20 Left Iliac Prox: 1.17 x 1.27 x 102.10 Stent Prox Landing x x Aneurysmal Sac Max x x Lt Lat Sac Dim Rt Lat Sac Dim Stent Dist Landing x x Right Iliac Stent x x Left Iliac Stent x x Right Renal Art Left Renal Art FINDINGS: CONCLUSIONS Aneurysmal mid and distal infrarenal abdominal aorta measuring 3.1 x 3.7cm AP x Transverse in maximum dimension distally Normal common iliac arteries. Velocities have decreased compared to previous. Findings are otherwise stable compared to 2020. Agustín Shen MD (Electronically Signed) Final Date: 07 January 2022 14:41 S
== END 2022-01-07 06:57 | disposition home or self-care (01) ==
PROVIDERS: PCP Family Medicine Adult Medicine; Visit Provider Internal Medicine
DX: I71.4 Abdominal aortic aneurysm, without rupture (principal)
CPT/HCPCS: 93978

== ENCOUNTER 2022-03-20 13:08 | Outpatient (CLI) | payer MEDICARE, MEDICAID, SELFPAY ==
--- NOTE | 2022-03-20 13:16 | MM_ITS ---
WS: [id number] Bilateral screening 3D tomosynthesis digital mammogram, 03/20/2022 Clinical Data: SCREENING Comparison: 03/27/2020, 01/12/2011, 01/12/2008, 11/26/2004. Findings: The breast parenchymal pattern shows fat replacement. No spiculated masses or clustered calcificatio ns are seen. There are no secondary signs of carcinoma. There are lymph nodes in both axilla. MM/[place] [id number] Impression: 1. Negative bilateral mammogram unchanged. 2. Recommend annual screening mammograms. BIRADS: 1-Negative FOLLOW UP: 1 Year Follow-up The CAD car checker was used.
== END 2022-03-20 13:09 | disposition home or self-care (01) ==
LOC: RAD 13:08
PROVIDERS: PCP Family Medicine Adult Medicine; Visit Provider Family Medicine Adult Medicine
DX: Z12.31 Encounter for screening mammogram for malignant neoplasm of breast (principal)
CPT/HCPCS: 77063; 77067

== ENCOUNTER → 2022-05-01 13:42 | Outpatient (BNVA) | payer MEDICARE, MEDICAID, SELFPAY | PROVIDERS: PCP Family Medicine Adult Medicine; Visit Provider Family Medicine Adult Medicine | DX: R39.9 Unspecified symptoms and signs involving the genitourinary system (principal) | CPT/HCPCS: 81000 ==

== ENCOUNTER 2022-05-19 08:09 | Outpatient (CLI) | payer MEDICARE, MEDICAID, SELFPAY ==
[2022-05-19 08:58] LABS: Basophils # 0.1 10^3/uL (0.0-0.1); Basophils % 0.8 %; Eosinophils # 0.5 10^3/uL (0.0-0.8); Eosinophils % 5.5 %; Hematocrit 33.1 % (37.0-47.0); Hemoglobin 10.8 g/dL (11.5-15.3); Lymphocytes # 1.6 10^3/uL (0.8-4.8); Lymphocytes % 18.7 %; Mean Corpuscular HGB Conc 32.6 g/dL (30.0-36.0); Mean Corpuscular Hemoglobin 29.3 pg (28.0-34.0); Mean Corpuscular Volume 89.7 fl (81-99); Mean Platelet Volume 10.1 fL (7.4-10.4); Monocytes # 0.6 10^3/uL (0.2-0.9); Monocytes % 7.6 %; Neutrophils # 5.67 10^3/uL (1.8-7.7); Neutrophils % 67.2 %; Nucleated Red Blood Cells % 0 %; Platelet Count 368 10^3/cmm (130-400); Red Blood Count 3.69 10^6/uL (4.1-5.3); Red Cell Distribution Width 12.9 % (12.1-15.1); White Blood Count 8.4 10^3/uL (4.0-10.0)
[2022-05-19 09:22] LABS: Calcium 9.8 mg/dL (8.5-10.5)
[2022-05-19 09:25] LABS: Albumin Level 3.9 g/dL (3.5-5.2); Anion Gap 15.4 (5-19); Blood Urea Nitrogen 21 mg/dL (8-23); Carbon Dioxide 27 mmol/L (22-29); Chloride 101 mmol/L (98-107); Glucose 123 mg/dL (65-115); Phosphorus 4.1 mg/dL (2.5-4.5); Potassium 4.4 mmol/L (3.5-5.1); Sodium 139 mmol/L (136-145)
[2022-05-19 09:30] LABS: Parathyroid Hormone 94.4 pg/mL (15-65)
[2022-05-19 10:22] LABS: Urine Creatinine 86 mg/dL (28-217)
== END 2022-05-19 08:10 | disposition home or self-care (01) ==
LOC: LAB 08:18
PROVIDERS: PCP Family Medicine Adult Medicine; Visit Provider Internal Medicine Nephrology
DX: N18.4 Chronic kidney disease, stage 4 (severe) (principal); I10 Essential (primary) hypertension; R73.03 Prediabetes; E78.00 Pure hypercholesterolemia, unspecified
CPT/HCPCS: 36415; 80053; 80061; 80069; 82310; 82570; 83036; 83970; 85025

== ENCOUNTER 2022-05-19 08:13 | Outpatient (CLI) | payer MEDICARE, MEDICAID, SELFPAY ==
[2022-05-19 09:20] LABS: Estmated Average Glucose 103; Hemoglobin A1C 5.2 % (4.0-6.0)
[2022-05-19 09:24] LABS: Alanine Aminotransferase 7 U/L (0-33); Albumin Level 3.8 g/dL (3.5-5.2); Alkaline Phosphatase 74 U/L (35-105); Anion Gap 15.3 (5-19); Aspartate Amino Transferase 13 U/L (0-32); Blood Urea Nitrogen 21 mg/dL (8-23); Calcium 9.1 mg/dL (8.5-10.5); Carbon Dioxide 27 mmol/L (22-29); Chloride 101 mmol/L (98-107); Cholesterol 352 mg/dL (0-200); Globulin 3.9 g/dL (1.3-4.6); Glucose 130 mg/dL (65-115); HDL Cholesterol 40 mg/dL (60-100); LDL Cholesterol Calculated 269 mg/dL (50-129); LDL HDL Ratio 6.73 RATIO (0.00-3.22); Osmolality Calculated 293 mOsm/kg (285-295); Potassium 4.3 mmol/L (3.5-5.1); Sodium 139 mmol/L (136-145); Total Bilirubin 0.3 mg/dL (0.15-1.2); Total Protein 7.7 g/dL (6.6-8.7); Triglycerides 214 mg/dL (0-150)
== END 2022-05-19 08:14 | disposition home or self-care (01) ==
PROVIDERS: PCP Family Medicine Adult Medicine; Visit Provider Family Medicine Adult Medicine
DX: N18.4 Chronic kidney disease, stage 4 (severe) (principal); I10 Essential (primary) hypertension; R73.03 Prediabetes; E78.00 Pure hypercholesterolemia, unspecified
CPT/HCPCS: 36415; 80053; 80061; 83036

== ENCOUNTER → 2022-06-23 10:53 | Outpatient (BNVA) | payer MEDICARE, MEDICAID, SELFPAY | PROVIDERS: PCP Family Medicine Adult Medicine; Visit Provider Internal Medicine Cardiovascular Disease | DX: I12.9 Hypertensive chronic kidney disease with stage 1 through stage 4 chronic kidney disease, or unspecified chronic kidney disease (principal); N18.4 Chronic kidney disease, stage 4 (severe); F41.9 Anxiety disorder, unspecified; F32.A Depression, unspecified; E66.01 Morbid (severe) obesity due to excess calories; Z68.41 Body mass index [BMI] 40.0-44.9, adult; G47.33 Obstructive sleep apnea (adult) (pediatric); Z99.89 Dependence on other enabling machines and devices; D63.1 Anemia in chronic kidney disease; I73.9 Peripheral vascular disease, unspecified; I71.40 Abdominal aortic aneurysm, without rupture, unspecified; J44.9 Chronic obstructive pulmonary disease, unspecified; E78.00 Pure hypercholesterolemia, unspecified; I35.0 Nonrheumatic aortic (valve) stenosis | CPT/HCPCS: 99214 ==

== ENCOUNTER 2022-11-16 14:19 | Outpatient (CLI) | payer MEDICARE, MEDICAID, SELFPAY ==
[2022-11-16 15:03] LABS: Basophils # 0.1 10^3/uL (0.0-0.1); Basophils % 0.7 %; Eosinophils # 0.4 10^3/uL (0.0-0.8); Eosinophils % 4.4 %; Hematocrit 31.6 % (37.0-47.0); Hemoglobin 10.4 g/dL (11.5-15.3); Lymphocytes # 1.3 10^3/uL (0.8-4.8); Lymphocytes % 15.7 %; Mean Corpuscular HGB Conc 32.9 g/dL (30.0-36.0); Mean Corpuscular Hemoglobin 28.6 pg (28.0-34.0); Mean Corpuscular Volume 86.8 fl (81-99); Mean Platelet Volume 10.6 fL (7.4-10.4); Monocytes # 0.7 10^3/uL (0.2-0.9); Neutrophils # 5.77 10^3/uL (1.8-7.7); Neutrophils % 69.8 %; Nucleated Red Blood Cells % 0 %; Platelet Count 305 10^3/cmm (130-400); Red Blood Count 3.64 10^6/uL (4.1-5.3); Red Cell Distribution Width 12.9 % (12.1-15.1); White Blood Count 8.3 10^3/uL (4.0-10.0)
[2022-11-16 15:24] LABS: Blood Urea Nitrogen 39 mg/dL (8-23); Calcium 9.2 mg/dL (8.5-10.5); Carbon Dioxide 24 mmol/L (22-29); Chloride 95 mmol/L (98-107); Glucose 88 mg/dL (65-115); Phosphorus 3.8 mg/dL (2.5-4.5); Sodium 131 mmol/L (136-145)
[2022-11-16 15:25] LABS: Calcium 9.2 mg/dL (8.5-10.5)
[2022-11-16 15:25] LABS: Creatinine Urine, Random 65 mg/dL (28-217)
[2022-11-16 15:31] LABS: Parathyroid Hormone 115.4 pg/mL (15-65)
[2022-11-16 15:39] LABS: 25 Hydroxy Vitamin D 21 ng/mL (30-100)
[2022-11-16 15:41] LABS: Microalbum Creatinine Ratio Ur 1769 mg/dL (0-20); Microalbumin Random Urine 115 ug/dL (0-20)
== END 2022-11-16 14:20 | disposition home or self-care (01) ==
LOC: LAB 14:28
PROVIDERS: PCP Family Medicine Adult Medicine; Visit Provider Registered Nurse
DX: E55.9 Vitamin D deficiency, unspecified (principal); N18.4 Chronic kidney disease, stage 4 (severe)
CPT/HCPCS: 36415; 80069; 82044; 82306; 82310; 83970; 85025

== ENCOUNTER 2022-12-01 14:52 | Outpatient (CLI) | payer MEDICARE, MEDICAID, SELFPAY ==
[2022-12-01 15:28] LABS: Basophils # 0.1 10^3/uL (0.0-0.1); Basophils % 1.1 %; Eosinophils # 0.3 10^3/uL (0.0-0.8); Eosinophils % 4.2 %; Hematocrit 30.8 % (37.0-47.0); Hemoglobin 10.2 g/dL (11.5-15.3); Lymphocytes # 1.4 10^3/uL (0.8-4.8); Lymphocytes % 18.5 %; Mean Corpuscular HGB Conc 33.1 g/dL (30.0-36.0); Mean Corpuscular Hemoglobin 29.6 pg (28.0-34.0); Mean Corpuscular Volume 89.3 fl (81-99); Monocytes # 0.8 10^3/uL (0.2-0.9); Monocytes % 11.1 %; Neutrophils # 4.83 10^3/uL (1.8-7.7); Neutrophils % 64.8 %; Nucleated Red Blood Cells % 0 %; Platelet Count 298 10^3/cmm (130-400); Red Blood Count 3.45 10^6/uL (4.1-5.3); White Blood Count 7.5 10^3/uL (4.0-10.0)
[2022-12-01 16:07] LABS: 25 Hydroxy Vitamin D 25 ng/mL (30-100); Anion Gap 18.4 (5-19); Blood Urea Nitrogen 32 mg/dL (8-23); Carbon Dioxide 22 mmol/L (22-29); Chloride 99 mmol/L (98-107); Ferritin 95 ng/mL (15-150); Glucose 87 mg/dL (65-115); Iron 55 ug/dL (37-145); Phosphorus 4.2 mg/dL (2.5-4.5); Potassium 4.4 mmol/L (3.5-5.1); Sodium 135 mmol/L (136-145); Total Iron Binding Capacity 304 mcg/dl; Unsaturated Iron Binding 249 ug/dL (112-347)
== END 2022-12-01 14:53 | disposition home or self-care (01) ==
LOC: LAB 14:56
PROVIDERS: PCP Family Medicine Adult Medicine; Visit Provider Internal Medicine Nephrology
DX: N18.4 Chronic kidney disease, stage 4 (severe) (principal)
CPT/HCPCS: 36415; 80069; 82306; 82728; 83540; 83550; 85025

== ENCOUNTER → 2022-12-22 13:14 | Outpatient (BNVA) | payer MEDICARE, MEDICAID, SELFPAY | PROVIDERS: PCP Family Medicine Adult Medicine; Visit Provider Internal Medicine | DX: I73.9 Peripheral vascular disease, unspecified (principal); I25.10 Atherosclerotic heart disease of native coronary artery without angina pectoris; E78.00 Pure hypercholesterolemia, unspecified; I71.40 Abdominal aortic aneurysm, without rupture, unspecified; I12.9 Hypertensive chronic kidney disease with stage 1 through stage 4 chronic kidney disease, or unspecified chronic kidney disease; N18.4 Chronic kidney disease, stage 4 (severe) | CPT/HCPCS: 99214 ==

== ENCOUNTER 2023-01-13 13:44 | Outpatient (CLI) | payer MEDICARE, MEDICAID, SELFPAY ==
--- NOTE | 2023-01-13 13:48 | USCV_ITS ---
Mahnaz Magallanes Age: 77 Gender: F : 1945 Exam Date: 01/13/2023 14:08 Ordering Phys: Shan Zamarripa M.D ([email or web address]) Technologist: Virgie Donahue Exam Location: [facility] – [place] Indication: Known BP: 160 / 77 HR: 65 Rhythm: Sinus Technical Quality: Adequate MEASUREMENTS (Male / Female) Normal Values 2D ECHO LV Diastolic Diameter PLAX 2.9 cm 4.2 - 5.9 / 3.9 - 5.3 cm LV Systolic Diameter PLAX 2.2 cm LV Chamber Size 3.6 cm IVS Diastolic Thickness 1.1 cm 0.6 - 1.0 / 0.6 - 0.9 cm IVS Systolic Thickness 0.8 cm LVPW Diastolic Thickness 1.2 cm 0.6 - 1.0 / 0.6 - 0.9 cm LVPW Systolic Thickness 1.5 cm RV Chamber Size 3.4 cm LVOT Diameter 2.0 cm LV Ejection Fraction 2D Teich 48.2 % LV Ejection Fraction MOD 2C 70.4 % LV Ejection Fraction 2C AL 68.6 % LA Diameter 4.4 cm LA Width 3.8 cm LA Height 5.4 cm RA Width 3.3 cm RA Height 3.6 cm Aorta at Sinotubular Diameter 2.3 cm IVC Diameter 1.3 cm M-MODE Aortic Annulus Diameter 2.8 cm LA Ao Ratio MM 1.7 MV E Point Septal Separation 0.4 cm DOPPLER AV Peak Velocity 233.2 cm/s LVOT Peak Velocity 118.8 cm/s AV Area Cont Eq vti 2.4 cm squared AV Area Cont Eq pk 1.7 cm squared MV Area PHT 3.4 cm squared Mitral E to A Ratio 0.8 MV E' Velocity 82.0 cm/s Mitral E to MV E' Ratio 24.0 Mitral E to LV E' Lateral Ratio 26.9 Mitral E to LV E' Septal Ratio 21.7 TR Peak Velocity 164.8 cm/s TR Peak Gradient 10.9 mmHg TR Mean Velocity 113.7 cm/s TR Mean Gradient 6.3 mmHg TR Velocity Time Integral 44.8 cm TV Peak E Velocity 84.0 cm/s Right Atrial Pressure 3.0 mmHg Pulmonary Artery Systolic Pressu 13.9 mmHg RV Acceleration Time 0.1 s RV Ejection Time 0.3 s RV AcT/ET 0.4 FINDINGS Left Ventricle Left ventricle is normal size. LV systolic function is normal with EF of 60 to 65%. No regional wall motion abnormalities are seen. Right Ventricle Normal in size Right Atrium Normal in size and function Left Atrium Normal in size Mitral Valve Moderate mitral annular calcification. Aortic Valve Aortic valve is thickened. Mild aortic stenosis with mean gradient across aortic valve of 14mmHg and mean gradient across aortic valve of 1.77cm2. Tricuspid Valve Mild tricuspid regurgitation. Insufficient TR jet to calculate RVSP. Pulmonic Valve Not well visualized Pericardium Normal Aorta Normal in size IVC Appears to be normal CONCLUSIONS LV systolic function is normal with EF of 60-65%. Moderate mitral annular calcification. Mild aortic stenosis with mean gradient across aortic valve of 14mmHg. Mild tricuspid regurgitaiton. Compared to prior echocardiogram from 05/2021, no significant changes are seen Shan Zamarripa MD (Electronically Signed) Final Date: 27 January 2023 18:26 S
== END 2023-01-13 13:45 | disposition home or self-care (01) ==
PROVIDERS: PCP Family Medicine Adult Medicine; Visit Provider Internal Medicine
DX: I35.0 Nonrheumatic aortic (valve) stenosis (principal); I34.81 Nonrheumatic mitral (valve) annulus calcification; I07.1 Rheumatic tricuspid insufficiency
CPT/HCPCS: 93306

== ENCOUNTER 2023-03-30 12:53 | Outpatient (CLI) | payer MEDICARE, MEDICAID, SELFPAY ==
[2023-03-30 13:37] LABS: Albumin Level 3.8 g/dL (3.5-5.2); Anion Gap 14.9 (5-19); Blood Urea Nitrogen 48 mg/dL (8-23); Carbon Dioxide 25 mmol/L (22-29); Chloride 99 mmol/L (98-107); Ferritin 43 ng/mL (15-150); Glucose 105 mg/dL (65-115); Iron 67 ug/dL (37-145); Phosphorus 3.8 mg/dL (2.5-4.5); Potassium 3.9 mmol/L (3.5-5.1); Sodium 135 mmol/L (136-145); Total Iron Binding Capacity 239 mcg/dl; Unsaturated Iron Binding 172 ug/dL (112-347)
== END 2023-03-30 12:54 | disposition home or self-care (01) ==
PROVIDERS: PCP Family Medicine Adult Medicine; Visit Provider Internal Medicine Nephrology
DX: N18.4 Chronic kidney disease, stage 4 (severe) (principal)
CPT/HCPCS: 36415; 80069; 82728; 83540; 83550

== ENCOUNTER 2023-04-07 14:08 | Outpatient (CLI) | payer MEDICARE, MEDICAID, SELFPAY ==
--- NOTE | 2023-04-07 14:10 | MM_ITS ---
WS: [id number] BILATERAL 3D TOMOSYNTHESIS DIGITAL SCREENING MAMMOGRAPHY WITH CAD CLINICAL INFORMATION: routine screen HISTORY: Screening mammogram. No current complaints. COMPARISON: 2021 TECHNIQUE: Bilateral CC and MLO views. FINDINGS: Scattered fibroglandular densities bilaterally. No suspicious focal mass, asymmetry, calcifications, or architectural distortion. No evidence of malignancy. Stable punctate and lucent centered calcifica tions. IMPRESSION: MM/[place] [id number] BI-RADS: 2-Benign FOLLOW UP: 1 Year Follow-up Recommend return to annual screening mammography.
== END 2023-04-07 14:09 | disposition home or self-care (01) ==
LOC: RAD 14:08
PROVIDERS: PCP Family Medicine Adult Medicine; Visit Provider Family Medicine Adult Medicine
DX: Z12.31 Encounter for screening mammogram for malignant neoplasm of breast
CPT/HCPCS: 77063; 77067

== ENCOUNTER → 2023-06-21 12:58 | Outpatient (BNVA) | payer MEDICARE, MEDICAID, SELFPAY | PROVIDERS: Visit Provider Internal Medicine | DX: I73.9 Peripheral vascular disease, unspecified (principal); I12.9 Hypertensive chronic kidney disease with stage 1 through stage 4 chronic kidney disease, or unspecified chronic kidney disease; N18.4 Chronic kidney disease, stage 4 (severe); I25.10 Atherosclerotic heart disease of native coronary artery without angina pectoris; E78.00 Pure hypercholesterolemia, unspecified; I71.40 Abdominal aortic aneurysm, without rupture, unspecified; F17.290 Nicotine dependence, other tobacco product, uncomplicated | CPT/HCPCS: 99214 ==

== ENCOUNTER 2023-07-07 13:02 | Outpatient (CLI) | payer MEDICARE, MEDICAID, SELFPAY ==
--- NOTE | 2023-07-07 13:00 | USCV_ITS ---
Mahnaz Magallanes Age: 77 Gender: F : 1945 Exam Date: 07/07/2023 13:26 Ordering Phys: Shan Zamarripa M.D ([email or web address]) Technologist: NAYANA Exam Location: [facility] [place] Indication: KNOWN DIST AAA HISTORY: Diameter (cm) AP x Transverse x Length Velocity (cm/s) Waveform Prox Aorta: 2.38 x 2.46 x 106.30 Triphasic Mid Aorta: 1.90 x 2.10 x 154.40 Triphasic Distal Aorta: 3.74 x 3.48 x 202.40 Triphasic Right Iliac Prox: 0.64 x 0.51 x 403.40 Triphasic Left Iliac Prox: 0.63 x 0.60 x 684.10 Triphasic Stent Prox Landing x x Aneurysmal Sac Max x x Lt Lat Sac Dim Rt Lat Sac Dim Stent Dist Landing x x Right Iliac Stent x x Left Iliac Stent x x Right Renal Art Left Renal Art FINDINGS: comparison 2021 CONCLUSIONS Infrarenal AAA measuring 3.7 x 3.5cm AP x trans. This measures slightly larger today. Previous measurements 3.1 x 3.7cm Normal iliac arteries Agustín Shen MD (Electronically Signed) Final Date: 07 July 2023 16:45 S
== END 2023-07-07 13:03 | disposition home or self-care (01) ==
LOC: RAD 13:03
PROVIDERS: Visit Provider Internal Medicine
DX: I71.43 Infrarenal abdominal aortic aneurysm, without rupture (principal)
CPT/HCPCS: 93978

== ENCOUNTER 2023-10-13 11:59 | Outpatient (CLI) | payer MEDICARE, MEDICAID, SELFPAY ==
[2023-10-13 12:39] LABS: Basophils # 0.1 10^3/uL (0.0-0.1); Basophils % 0.7 %; Eosinophils # 0.3 10^3/uL (0.0-0.8); Eosinophils % 3.7 %; Hematocrit 28.1 % (36-47); Lymphocytes # 1.1 10^3/uL (0.8-4.8); Mean Corpuscular HGB Conc 32.4 g/dL (30-55); Mean Corpuscular Volume 89.5 fl (85-98); Mean Platelet Volume 10.1 fL (7.4-10.4); Monocytes # 0.8 10^3/uL (0.2-0.9); Neutrophils # 5.92 10^3/uL (1.8-7.7); Neutrophils % 72.4 %; Nucleated Red Blood Cells % 0 %; Platelet Count 254 10^3/cmm (157-399); Red Blood Count 3.14 10^6/uL (3.85-5.65); Red Cell Distribution Width 13.2 % (12.1-15.1); White Blood Count 8.18 10^3/uL (3.29-11.43)
[2023-10-13 13:00] LABS: Creatinine Urine, Random 71 mg/dL (28-217)
[2023-10-13 13:01] LABS: Albumin Level 3.7 g/dL (3.5-5.2); Anion Gap 15.2 (5-19); Blood Urea Nitrogen 43 mg/dL (8-23); Calcium 8.3 mg/dL (8.5-10.5); Calcium 8.6 mg/dL (8.5-10.5); Carbon Dioxide 24 mmol/L (22-29); Chloride 102 mmol/L (98-107); Glucose 109 mg/dL (65-115); Phosphorus 3.5 mg/dL (2.5-4.5); Potassium 4.2 mmol/L (3.5-5.1); Sodium 137 mmol/L (136-145)
[2023-10-13 13:08] LABS: Parathyroid Hormone 100.8 pg/mL (15-65)
[2023-10-13 13:17] LABS: 25 Hydroxy Vitamin D 18 ng/mL (30-100)
[2023-10-13 13:17] LABS: Microalbum Creatinine Ratio Ur 1155 mg/dL (0-20); Microalbumin Random Urine 82 ug/dL (0-20)
== END 2023-10-13 12:00 | disposition home or self-care (01) ==
PROVIDERS: PCP Family Medicine Adult Medicine; Visit Provider Registered Nurse
DX: N18.4 Chronic kidney disease, stage 4 (severe) (principal); E55.9 Vitamin D deficiency, unspecified
CPT/HCPCS: 36415; 80069; 82044; 82306; 82310; 83970; 85025

== ENCOUNTER 2023-10-28 12:40 | Outpatient (CLI) | payer MEDICARE, MEDICAID, SELFPAY ==
[2023-10-28 13:59] LABS: Anion Gap 18.1 (5-19); Blood Urea Nitrogen 53 mg/dL (8-23); Calcium 8.9 mg/dL (8.5-10.5); Carbon Dioxide 23 mmol/L (22-29); Chloride 99 mmol/L (98-107); Glucose 123 mg/dL (65-115); Osmolality Calculated 298 mOsm/kg (285-295); Potassium 4.1 mmol/L (3.5-5.1); Sodium 136 mmol/L (136-145)
[2023-10-28 17:33] LABS: Ferritin 48 ng/mL (15-150); Iron 60 ug/dL (37-145); Percent Saturation 25.9 % (20-50); Total Iron Binding Capacity 231 mcg/dl; Unsaturated Iron Binding 171 ug/dL (112-347)
== END 2023-10-28 12:41 | disposition home or self-care (01) ==
PROVIDERS: PCP Family Medicine Adult Medicine; Visit Provider Nurse Practitioner
DX: D50.8 Other iron deficiency anemias (principal); N18.4 Chronic kidney disease, stage 4 (severe); D63.1 Anemia in chronic kidney disease
CPT/HCPCS: 36415; 80048; 82728; 83540; 83550

== ENCOUNTER 2023-11-09 12:50 | Outpatient (CLI) | payer MEDICARE, MEDICAID, SELFPAY ==
[2023-11-09 13:51] LABS: Anion Gap 17.9 (5-19); Blood Urea Nitrogen 38 mg/dL (8-23); Calcium 8.9 mg/dL (8.5-10.5); Carbon Dioxide 22 mmol/L (22-29); Chloride 95 mmol/L (98-107); Ferritin 56 ng/mL (15-150); Glucose 107 mg/dL (65-115); Iron 75 ug/dL (37-145); Osmolality Calculated 282 mOsm/kg (285-295); Percent Saturation 28.4 % (20-50); Potassium 3.9 mmol/L (3.5-5.1); Sodium 131 mmol/L (136-145); Total Iron Binding Capacity 264 mcg/dl; Unsaturated Iron Binding 189 ug/dL (112-347)
== END 2023-11-09 12:51 | disposition home or self-care (01) ==
LOC: LAB 12:53
PROVIDERS: PCP Family Medicine Adult Medicine; Visit Provider Nurse Practitioner
DX: N18.4 Chronic kidney disease, stage 4 (severe) (principal); D50.8 Other iron deficiency anemias
CPT/HCPCS: 36415; 80048; 82728; 83540; 83550

== ENCOUNTER → 2023-12-20 14:02 | Outpatient (BNVA) | payer MEDICARE, MEDICAID, SELFPAY | PROVIDERS: PCP Family Medicine Adult Medicine; Visit Provider Internal Medicine | DX: I73.9 Peripheral vascular disease, unspecified (principal); I25.10 Atherosclerotic heart disease of native coronary artery without angina pectoris; E78.00 Pure hypercholesterolemia, unspecified; Z72.0 Tobacco use; I12.9 Hypertensive chronic kidney disease with stage 1 through stage 4 chronic kidney disease, or unspecified chronic kidney disease; N18.4 Chronic kidney disease, stage 4 (severe) | CPT/HCPCS: 99214 ==

== ENCOUNTER 2024-02-09 15:27 | Outpatient (CLI) | payer MEDICARE, MEDICAID, SELFPAY ==
[2024-02-09 15:59] LABS: Basophils # 0.1 10^3/uL (0.0-0.1); Basophils % 0.7 %; Eosinophils # 0.2 10^3/uL (0.0-0.8); Eosinophils % 2.3 %; Hematocrit 29.4 % (36-47); Lymphocytes # 1.2 10^3/uL (0.8-4.8); Lymphocytes % 13.4 %; Mean Corpuscular HGB Conc 33.7 g/dL (30-55); Mean Corpuscular Hemoglobin 30.1 pg (27-33); Mean Corpuscular Volume 89.4 fl (85-98); Mean Platelet Volume 10.4 fL (7.4-10.4); Monocytes # 0.9 10^3/uL (0.2-0.9); Monocytes % 9.6 %; Neutrophils # 6.72 10^3/uL (1.8-7.7); Neutrophils % 73.8 %; Nucleated Red Blood Cells % 0 %; Platelet Count 315 10^3/cmm (157-399); Red Blood Count 3.29 10^6/uL (3.85-5.65); Red Cell Distribution Width 12.8 % (12.1-15.1)
[2024-02-09 16:28] LABS: Albumin Level 3.9 g/dL (3.5-5.2); Anion Gap 19.3 (5-19); Blood Urea Nitrogen 59 mg/dL (8-23); Calcium 8.9 mg/dL (8.5-10.5); Carbon Dioxide 22 mmol/L (22-29); Chloride 97 mmol/L (98-107); Ferritin 93 ng/mL (15-150); Glucose 95 mg/dL (65-115); Iron 81 ug/dL (37-145); Parathyroid Hormone 119.7 pg/mL (15-65); Percent Saturation 30.6 % (20-50); Phosphorus 4.9 mg/dL (2.5-4.5); Potassium 4.3 mmol/L (3.5-5.1); Sodium 134 mmol/L (136-145); Total Iron Binding Capacity 264 mcg/dl; Unsaturated Iron Binding 183 ug/dL (112-347)
[2024-02-09 16:29] LABS: Calcium 9.1 mg/dL (8.5-10.5)
[2024-02-09 16:30] LABS: Urine Creatinine 80 mg/dL (28-217)
[2024-02-09 16:37] LABS: 25 Hydroxy Vitamin D 24 ng/mL (30-100)
[2024-02-09 16:48] LABS: UPRO/UCREAT Ratio 2.53 mg/mg CR; Urine Protein Random 202 mg/dL
== END 2024-02-09 15:28 | disposition home or self-care (01) ==
LOC: LAB 15:29
PROVIDERS: PCP Family Medicine Adult Medicine; Visit Provider Registered Nurse
DX: N18.4 Chronic kidney disease, stage 4 (severe) (principal); E55.9 Vitamin D deficiency, unspecified; D50.8 Other iron deficiency anemias
CPT/HCPCS: 36415; 80069; 82306; 82310; 82570; 82728; 83540; 83550; 83970; 84156; 85025

== ENCOUNTER 2024-03-15 13:01 | Outpatient (CLI) | payer MEDICARE, MEDICAID, SELFPAY ==
[2024-03-15 13:22] LABS: Basophils # 0.1 10^3/uL (0.0-0.1); Basophils % 0.8 %; Eosinophils # 0.2 10^3/uL (0.0-0.8); Eosinophils % 2.4 %; Lymphocytes # 1.1 10^3/uL (0.8-4.8); Lymphocytes % 12.7 %; Mean Corpuscular HGB Conc 33.7 g/dL (30-55); Mean Corpuscular Hemoglobin 31.1 pg (27-33); Mean Corpuscular Volume 92.3 fl (85-98); Mean Platelet Volume 10.2 fL (7.4-10.4); Monocytes # 0.8 10^3/uL (0.2-0.9); Monocytes % 8.4 %; Neutrophils # 6.73 10^3/uL (1.8-7.7); Neutrophils % 75.4 %; Nucleated Red Blood Cells % 0 %; Platelet Count 334 10^3/cmm (157-399); Red Blood Count 3.25 10^6/uL (3.85-5.65); Red Cell Distribution Width 13.1 % (12.1-15.1); White Blood Count 8.92 10^3/uL (3.29-11.43)
[2024-03-15 13:40] LABS: Blood Urea Nitrogen 56 mg/dL (8-23); Calcium 8.8 mg/dL (8.5-10.5); Carbon Dioxide 22 mmol/L (22-29); Chloride 98 mmol/L (98-107); Glucose 98 mg/dL (65-115); Phosphorus 4.5 mg/dL (2.5-4.5); Sodium 133 mmol/L (136-145)
[2024-03-15 13:51] LABS: Calcium 8.9 mg/dL (8.5-10.5); Parathyroid Hormone 93.2 pg/mL (15-65)
== END 2024-03-15 13:02 | disposition home or self-care (01) ==
LOC: LAB 13:03
PROVIDERS: PCP Family Medicine Adult Medicine; Visit Provider Registered Nurse
DX: N18.4 Chronic kidney disease, stage 4 (severe) (principal)
CPT/HCPCS: 36415; 80069; 82310; 83970; 85025

== ENCOUNTER 2024-04-30 13:35 | Inpatient (IN) | payer MEDICARE, MEDICAID, SELFPAY ==
[2024-04-30] VITALS (11 sets, daily range): BP systolic 169–204; BP diastolic 61–89; PULSE 67–94; RESP 18–19; TEMP 36.5–36.6; O2SAT 94–97; BMI 41.1
--- NOTE | 2024-04-30 13:38 | XRR_ITS ---
PROCEDURE INFORMATION: Exam: XR Chest Exam date and time: 04/30/2024 2:23 PM Age: 78 years old Clinical indication: Other: AMS TECHNIQUE: Imaging protocol: Radiologic exam of the chest. Views: 1 view. COMPARISON: No relevant prior studies available. FINDINGS: Lungs: Unremarkable. No consolidation. Pleural spaces: Unremarkable. No pleural effusion. No pneumothorax. Heart/Mediastinum: Unremarkable. No cardiomegaly. Bones/joints: Bilateral narrowing of the glenohumeral joints without subchondral sclerosis. Chronic multilevel degenerative changes of the thoracic vertebrae. XR/XR chest 1V portable [id number] IMPRESSION: No acute findings.
--- NOTE | 2024-04-30 13:38 | ECG_ITS ---
[facility] Test Date: 2024-04-30 Pat Name: Mahnaz Magallanes Department: Room: Gender: Female Analysis Reporting Developer: : 1945 Requested By: Teresa De Anda Order Number: [id number] Angela MD: Lauren Garcia M.D. Measurements Intervals [place] Rate: 80 P: 42 NC: 222 QRS: -20 QRSD: 92 T: 68 QT: 368 QTc: 426 Interpretive Statements SINUS RHYTHM WITH FIRST DEGREE AV BLOCK WITH OCCASIONAL SUPRAVENTRICULAR PREMATURE COMPLEXES LEFT VENTRICULAR HYPERTROPHY AND ST-T CHANGE [VOLTAGE CRITERIA PLUS ST/T ABNORMALITY] POSSIBLE ANTERIOR MYOCARDIAL INFARCTION , OF INDETERMINATE AGE [30 ms Q WAVE IN V3/V4, OR R < 0.2 mV IN V4] Compared to ECG 11/01/2020 20:50:41 Left ventricular hypertrophy now present ST (T wave) deviation now present Myocardial infarct finding now present Electronically Signed On 04-30-2024 22:19:47 CASTING ASSOCIATE by Lauren Garcia M.D. [email or web address]
[2024-04-30 14:16] LABS: Basophils # 0.1 10^3/uL (0.0-0.1); Basophils % 0.7 %; Eosinophils # 0.2 10^3/uL (0.0-0.8); Eosinophils % 1.8 %; Lymphocytes % 10.3 %; Mean Corpuscular HGB Conc 32.5 g/dL (30-55); Mean Corpuscular Hemoglobin 30.3 pg (27-33); Mean Corpuscular Volume 93.3 fl (85-98); Mean Platelet Volume 9.9 fL (7.4-10.4); Monocytes # 0.9 10^3/uL (0.2-0.9); Monocytes % 8.8 %; Neutrophils # 7.72 10^3/uL (1.8-7.7); Nucleated Red Blood Cells % 0 %; Platelet Count 319 10^3/cmm (157-399); Red Cell Distribution Width 13.6 % (12.1-15.1)
--- NOTE | 2024-04-30 14:22 | CTR_ITS ---
PROCEDURE INFORMATION: Exam: CT Head Without Contrast Exam date and time: 04/30/2024 2:31 PM Age: 78 years old Clinical indication: Altered mental status/memory loss; Additional info: AMS TECHNIQUE: Imaging protocol: Computed tomography of the head without contrast. Radiation optimization: All CT scans at this facility use at least one of these dose optimization techniques: automated exposure control; mA and/or kV adjustment per patient size (includes targeted exams where dose is matched to clinical indication); or iterative reconstruction. COMPARISON: CT head wo con* [id number] 11/01/2020 9:24 PM RADIATION DOSE METRICS: Total DLP (mGy-cm): 1104.18 FINDINGS: Brain: Normal. No hemorrhage. Bilateral ill-defined periventricular hypodensities consistent with mild chronic microvascular white matter ischemic changes. Chronic bibasilar lacunar infarcts Cerebral ventricles: Age-related diffuse cortical atrophic changes with compensatory ventricular dilatation. Paranasal sinuses: Partial opacification of the left maxillary sinus with air-fluid levels, there is partial opacification of the ethmoid and left frontal sinus, all other visualized paranasal sinuses clear Mastoid air cells: Visualized mastoid air cells are well aerated. Bones: Unremarkable. No acute fracture. Soft tissues: Unremarkable. CT/CT head wo con* [id number] IMPRESSION: 1. No acute intracranial abnormality. 2. Partial opacification of the left maxillary sinus with air-fluid levels
--- NOTE | 2024-04-30 14:39 | W.ED.AMS ---
HPI - Altered Mental Status General: Chief Complaint: Altered Mental Status Stated Complaint: ams Time Seen by Provider: 04/30/24 14:09 Source: patient Mode of arrival: ambulatory Limitations: no limitations History of Present Illness: 78-year-old female is here with family states she has had some increased confusion and weakness states she has had increasing confusion has been going on for months. Concerned that she may have a UTI states she has had a foul odor in her urine states they did try to get into her PCP Dr. Corbett and found out that she had left. Patient here is states she feels weak she is able answer most my questions appropriately denies any pain anywhere. Related Data Home Medications Medication Instructions Recorded Confirmed multivitamin 1 tab PO DAILY@1000 09/05/20 04/30/24 acetaminophen 500 mg tablet 500 mg PO Q6H PRN Pain 09/17/20 04/30/24 (Tylenol Extra Strength) aspirin 81 mg tablet,delayed 81 mg PO DAILY@1000 11/01/20 04/30/24 release cholecalciferol (vitamin D3) 25 25 mcg PO DAILY 04/30/24 04/30/24 mcg (1,000 unit) tablet (Vitamin D3) duloxetine 20 mg capsule,delayed 40 mg PO DAILY 04/30/24 04/30/24 release ferrous sulfate 325 mg (65 mg 325 mg PO DAILY 04/30/24 04/30/24 iron) tablet (Iron (ferrous sulfate)) hydralazine 100 mg tablet See Rx Instructions .Route .COMPLEX 04/30/24 04/30/24 ipratropium bromide 17 1 puff inhalation QID PRN 04/30/24 04/30/24 mcg/actuation HFA aerosol inhaler Shortness Of Breath Or Wheezing (Atrovent HFA) levothyroxine 75 mcg tablet 75 mcg PO DAILY 04/30/24 04/30/24 losartan 50 mg tablet 50 mg PO DAILY 04/30/24 04/30/24 omega 2-cil-xxd-fish oil 300 1 cap PO DAILY 04/30/24 04/30/24 mg-1,000 mg capsule (Fish Oil) pantoprazole 40 mg tablet,delayed 40 mg PO BID 04/30/24 04/30/24 release trazodone 50 mg tablet 50 mg PO BEDTIME 04/30/24 04/30/24 Previous Rx's Medication Instructions Recorded AFO #1 ea 02/20/21 nitroglycerin 0.4 mg sublingual 0.4 mg sublingual Q5M PRN Chest 07/21/22 tablet Pain #20 tabs alprazolam 0.5 mg tablet 0.5 mg PO DAILY PRN anxiety 07/02/23 attacks 90 days #90 tabs cyclobenzaprine 10 mg tablet 5 mg (1/2 x 10 mg) PO TID PRN 07/02/23 muscle spasm #90 tabs losartan 100 1 tab PO DAILY blood pressure #100 09/03/23 mg-hydrochlorothiazide 25 mg tablet tabs metoprolol tartrate 100 mg tablet 100 mg PO BID blood pressure #200 09/21/23 tabs amlodipine 10 mg tablet 10 mg PO DAILY High blood Pressure 09/23/23 #100 tabs aripiprazole 5 mg tablet (Abilify) 7.5 mg (1.5 x 5 mg) PO DAILY 01/24/24 mental health #135 tabs gemfibrozil 600 mg tablet (Lopid) 600 mg PO DAILY high fats #100 tabs 02/07/24 oxybutynin chloride 10 mg 10 mg PO DAILY #100 tabs 02/28/24 tablet,extended release 24 hr Allergies Allergy/AdvReac Type Severity Reaction Status Date / Time diphenhydramine Allergy Severe ALGY-Difficulty Verified 04/30/24 14:00 Breathing famotidine [From Pepcid] Allergy Severe ALGY-Difficulty Verified 04/30/24 14:00 Breathing omeprazole [From Prilosec] Allergy Severe ALGY-Difficulty Verified 04/30/24 14:00 Breathing ranitidine Allergy Severe ALGY-Difficulty Verified 04/30/24 14:00 Breathing Sulfa (Sulfonamide Allergy Intermediate Hives Verified 04/30/24 14:00 Antibiotics) tramadol Allergy Unknown Unknown Verified 04/30/24 14:00 Amoxicillin Allergy Mild Rash Uncoded 04/30/24 14:00 famodidin Allergy Unknown Unknown Uncoded 04/30/24 14:00 tramadol AdvReac Mild Mental Uncoded 04/30/24 14:00 status changes Review of Systems Const: Denies: fever(s), chills, body aches or change in appetite Eyes: Denies: blurry vision or eye discomfort ENMT: Denies: throat pain or dental pain Card: Denies: chest pain Resp: Denies: dyspnea GI: Denies: abdominal pain, nausea, vomiting or diarrhea Musc: Denies: neck pain or back pain Skin/Breast: Denies: rash Neuro: Reports: confusion; Denies: headache(s) PFSH ED PFSH: Medical History Healthcare maintenance Secondary hyperparathyroidism Aortic stenosis Anxiety and depression Panic attacks & Long hx of depression, on Cymbalta > 10 years. CKD (chronic kidney disease) stage 4, GFR 15-29 ml/min UTI (urinary tract infection) Morbid obesity with BMI of 40.0-44.9, adult JASON on CPAP Constipation by delayed colonic transit Osteoarthritis of both knees Cystitis cystica Ankle and foot deformity, acquired Anemia in chronic kidney disease (CKD) PAD (peripheral artery disease) Mixed incontinence AAA (abdominal aortic aneurysm) GERD (gastroesophageal reflux disease) COPD (chronic obstructive pulmonary disease) CAD (coronary artery disease) HTN (hypertension) Hx of myocardial infarction Hyperlipidemia Hypothyroidism Fibromyalgia Rheumatoid arthritis Obesity (BMI 35.0-39.9 without comorbidity) Surgical History History of bilateral cataract extraction Hx of cholecystectomy History of right shoulder replacement History of hip replacement Family History Father , AT 40 Cancer Mother , AT AGE 76 Cancer Heart disease Other CAD (coronary artery disease) Diabetes Social History Smoking and tobacco/nicotine status: current every day tobacco/nicotine user (vaping) e-cigarettes E-Cigarette Details: vaporizer device Alcohol intake: current Alcohol intake frequency: holidays/special occasions only Substance/Drug Use: former Marital status: / Current occupational status: disabled Physical Exam Const: COMMON NORMALS: no acute distress, patient oriented x3 and healthy appearing HENMT: COMMON NORMALS: normocephalic and atraumatic HEAD & SCALP: normocephalic and atraumatic Eye: COMMON NORMALS: Equal, round and reactive pupils present and EOMs intact bilaterally PUPIL: Yes Equal, round and reactive pupils present Neck/C-Spine: COMMON NORMALS: full ROM and supple Chest: COMMONS NORMALS: normal inspection of the chest and normal palpation of entire chest wall Resp: COMMON NORMALS: normal respiratory effort, No retractions, No use of accessory muscles and clear to auscultation bilaterally AUSCULTATION: clear to auscultation bilaterally Cardio: COMMON NORMALS: regular rate, regular rhythm and No murmurs present (Cardio) RATE: regular rate RHYTHM: regular rhythm GI: COMMON NORMALS: Normal to inspection, nondistended, normoactive bowel sounds present, Soft to palpation, non-tender and no masses PALPATION: Yes Soft to palpation Extremity: COMMON NORMALS: normal to inspection and full ROM Neuro: COMMON NORMALS: patient oriented x3, moves all extremities and no focal motor deficits Psych: COMMON NORMALS: mental status grossly normal, Normal thought process present and cooperative THOUGHT PROCESS: Normal thought process present Skin: COMMON NORMALS: no rashes or lesions noted and no wounds GENERAL SKIN EXAM: no rashes or lesions noted Course Vital Signs: Vital signs: Vital Signs Temperature 97.8 F 04/30/24 13:54 Pulse Rate 77 04/30/24 15:22 Respiratory Rate 18 04/30/24 13:54 Blood Pressure 190/89 04/30/24 15:22 Pulse Oximetry 95 04/30/24 15:22 Oxygen Delivery Me thod Room Air 04/30/24 15:22 MDM - Altered Mental Status Medical Decision Making Patient presents here with some increasing confusion she has had confusion here intermittently. She is also hypertensive spoke to the hospitalist will admit for observation. Medical Records I reviewed the patient's medical records. Lab Data I reviewed the patient's lab results. 04/30/24 14:09 04/30/24 14:09 Radiology Impressions Chest X-Ray 04/30/24 13:38 IMPRESSION: No acute findings. Head CT 04/30/24 14:22 IMPRESSION: 1. No acute intracranial abnormality. 2. Partial opacification of the left maxillary sinus with air-fluid levels Laboratory Results WBC 9.90 10^3/uL (3.29-11.43) 04/30/24 14:09 RBC 3.00 10^6/uL (3.85-5.65) L 04/30/24 14:09 Hgb 9.10 g/dL (11.27-16.99) L 04/30/24 14:09 Hct 28.0 % (36-47) L 04/30/24 14:09 MCV 93.3 fl (85-98) 04/30/24 14:09 MCH 30.3 pg (27-33) 04/30/24 14:09 MCHC 32.5 g/dL (30-55) 04/30/24 14:09 RDW 13.6 % (12.1-15.1) 04/30/24 14:09 Plt Count 319 10^3/cmm (157-399) 04/30/24 14:09 MPV 9.9 fL (7.4-10.4) 04/30/24 14:09 Neut % (Auto) 78.0 % 04/30/24 14:09 Lymph % (Auto) 10.3 % 04/30/24 14:09 [place] % (Auto) 8.8 % 04/30/24 14:09 Eos % (Auto) 1.8 % 04/30/24 14:09 Baso % (Auto) 0.7 % 04/30/24 14:09 Neut # (Auto) 7.72 10^3/uL (1.8-7.7) H 04/30/24 14:09 Lymph # (Auto) 1.0 10^3/uL (0.8-4.8) 04/30/24 14:09 [place] # (Auto) 0.9 10^3/uL (0.2-0.9) 04/30/24 14:09 Eos # (Auto) 0.2 10^3/uL (0.0-0.8) 04/30/24 14:09 Baso # (Auto) 0.1 10^3/uL (0.0-0.1) 04/30/24 14:09 Nucleated RBC % (auto) 0 % 04/30/24 14:09 Nucleated RBCs # 0.0 /100WBC 04/30/24 14:09 Sodium 136 mmol/L (136-145) 04/30/24 14:09 Potassium 3.9 mmol/L (3.5-5.1) 04/30/24 14:09 Chloride 102 mmol/L (98-107) 04/30/24 14:09 Carbon Dioxide 20 mmol/L (22-29) L 04/30/24 14:09 Anion Gap 17.9 (5-19) 04/30/24 14:09 BUN 33 mg/dL (8-23) H 04/30/24 14:09 Creatinine 2.8 mg/dL (0.5-0.9) H 04/30/24 14:09 GFR Calculation Not Reportable 04/30/24 14:09 Glucose 125 mg/dL (65-115) H 04/30/24 14:09 Calculated Osmolality 291 mOsm/kg (285-295) 04/30/24 14:09 Calcium 9.2 mg/dL (8.5-10.5) 04/30/24 14:09 Magnesium 1.7 mg/dL (1.7-2.3) 04/30/24 14:09 Total Bilirubin 0.3 mg/dL (0.15-1.2) 04/30/24 14:09 AST 8 U/L (0-32) 04/30/24 14:09 ALT < 5 U/L (0-33) 04/30/24 14:09 Alkaline Phosphatase 76 U/L (35-105) 04/30/24 14:09 Ammonia 14 umol/L (11-51) 04/30/24 14:09 Total Protein 7.6 g/dL (6.6-8.7) 04/30/24 14:09 Albumin 3.5 g/dL (3.5-5.2) 04/30/24 14:09 Globulin 4.1 g/dL (1.3-4.6) 04/30/24 14:09 TSH 2.92 uIU/mL (0.27-4.20) 04/30/24 14:09 Urine Color Yellow (Yellow) 04/30/24 14:45 Urine Appearance Cloudy (CLEAR) A 04/30/24 14:45 Urine pH 6.0 (5-7) 04/30/24 14:45 Ur Specific [place] 1.013 (1.005-1.030) 04/30/24 14:45 Urine Protein 3+ (Negative) A 04/30/24 14:45 Urine Glucose (UA) Negative (Normal) 04/30/24 14:45 Urine Ketones Negative (Negative) 04/30/24 14:45 Urine Blood Negative (Negative) 04/30/24 14:45 Urine Nitrate Negative (Negative) 04/30/24 14:45 Urine Bilirubin Negative (Negative) 04/30/24 14:45 Urine Urobilinogen 0.2 mg/dL (Negative) 04/30/24 14:45 Ur Leukocyte Esterase Trace (Negative) A 04/30/24 14:45 Urine RBC 0-2 /hpf (0-2) 04/30/24 14:45 Urine WBC 21-50 /hpf (0-5) H 04/30/24 14:45 Ur Squamous Epith Cells 0-5 /hpf (0-5) 04/30/24 14:45 Amorphous Sediment Not Reportable 04/30/24 14:45 Urine Bacteria Exceeds /hpf (NONE) 04/30/24 14:45 Hyaline Casts 2.90 /lpf 04/30/24 14:45 Ethyl Alcohol < 10 mg/dL (0-10) 04/30/24 14:09 All radiology interpretation(s) finalized by discharge Discharge Plan Discharge Patient Disposition: Admitted As Inpatient Clinical Impression: Altered mental status, HTN (hypertension) Condition: Stable Prescriptions: No Action multivitamin Tablet 1 tab PO DAILY@1000 acetaminophen [Tylenol Extra Strength] 500 mg tablet 500 mg PO Q6H PRN (Reason: Pain) (DME) AFO See Rx Instructions .Route .MEDSUPPLY Qty: 1 0RF Rx Instructions: As directed LAURA&O alprazolam 0.5 mg tablet 0.5 mg PO DAILY PRN (Reason: anxiety attacks) 90 Days Qty: 90 2RF cyclobenzaprine 10 mg tablet 5 mg PO TID PRN (Reason: muscle spasm) Qty: 90 1RF nitroglycerin 0.4 mg tablet, sublingual 0.4 mg SUBLINGUAL Q5M PRN (Reason: Chest Pain) Qty: 20 3RF Rx Instructions: do not exceed 3 doses per episode losartan-hydrochlorothiazide 100-25 mg tablet 1 tab PO DAILY Qty: 100 1RF metoprolol tartrate 100 mg tablet 100 mg PO BID Qty: 200 2RF amlodipine 10 mg tablet 10 mg PO DAILY Qty: 100 3RF aripiprazole [Abilify] 5 mg tablet 7.5 mg PO DAILY Qty: 135 1RF gemfibrozil [Lopid] 600 mg tablet 600 mg PO DAILY Qty: 100 1RF oxybutynin chloride 10 mg tablet extended release 24hr 10 mg PO DAILY Qty: 100 1RF aspirin 81 mg tablet,delayed release (DR/EC) 81 mg PO DAILY@1000 losartan 50 mg tablet 50 mg PO DAILY hydralazine 100 mg tablet See Rx Instructions .ROUTE .COMPLEX Rx Instructions: TAKE 1 TABLET BY MOUTH ONCE DAILY IN THE MORNING AND 1 ONCE DAILY IN THE EVENING AND 1 ONCE DAILY AT BEDTIME. ferrous sulfate [Iron (ferrous sulfate)] 325 mg (65 mg iron) Tablet 325 mg PO DAILY cholecalciferol (vitamin D3) [Vitamin D3] 25 mcg (1,000 unit) Tablet 25 mcg PO DAILY omega 3-upk-ijt-fish oil [Fish Oil] 300-1,000 mg Capsule 1 cap PO DAILY trazodone 50 mg tablet 50 mg PO BEDTIME levothyroxine 75 mcg tablet 75 mcg PO DAILY pantoprazole 40 mg tablet,delayed release (DR/EC) 40 mg PO BID duloxetine 20 mg capsule,delayed release(DR/EC) 40 mg PO DAILY Atrovent HFA 17 mcg/actuation HFA aerosol inhaler 1 puff inhalation QID PRN (Reason: Shortness Of Breath Or Wheezing) Referrals: Deandre Corbett MD [Primary Care Provider] - Patient Instructions: Altered Mental Status (ED) Coding Level of Care Code ED [employer] for Yuli Murray
[2024-04-30 14:46] LABS: Ammonia 14 umol/L (11-51)
[2024-04-30 14:50] LABS: Alanine Aminotransferase < 5 U/L (0-33); Albumin Level 3.5 g/dL (3.5-5.2); Alkaline Phosphatase 76 U/L (35-105); Anion Gap 17.9 (5-19); Aspartate Amino Transferase 8 U/L (0-32); Blood Urea Nitrogen 33 mg/dL (8-23); Calcium 9.2 mg/dL (8.5-10.5); Carbon Dioxide 20 mmol/L (22-29); Chloride 102 mmol/L (98-107); Creatinine Clr Calc Pharmacy 18.4121; Globulin 4.1 g/dL (1.3-4.6); Glucose 125 mg/dL (65-115); Magnesium 1.7 mg/dL (1.7-2.3); Osmolality Calculated 291 mOsm/kg (285-295); Potassium 3.9 mmol/L (3.5-5.1); Sodium 136 mmol/L (136-145); Thyroid Stimulating Hormone 2.92 uIU/mL (0.27-4.20); Total Bilirubin 0.3 mg/dL (0.15-1.2); Total Protein 7.6 g/dL (6.6-8.7)
[2024-04-30 14:51] LABS: Alcohol Level < 10 mg/dL (0-10)
[2024-04-30 14:57] LABS: Bilirubin Urine Negative (Negative); Blood Urine Negative (Negative); Glucose Urine UA Negative (Normal); Ketones Urine Negative (Negative); Leukocyte Esterase Urine Trace (Negative); Nitrate Urine Negative (Negative); Protein Urine 3+ (Negative); Specific Gravity, Urine 1.013 (1.005-1.030); Urine Appearance Cloudy (CLEAR); Urine Color Yellow (Yellow); Urobilinogen Urine 0.2 mg/dL (Negative)
[2024-04-30 15:00] LABS: Add Urine Microscopic? YES; Bacteria Urine EXCEEDS /hpf; RBC Urine 0-2 /hpf (0-2); Squamous Epithelial Cell Urine 0-5 /hpf (0-5); WBC Urine 21-50 /hpf (0-5)
[2024-04-30 15:18] LABS: Add Urine Culture? Yes
[2024-04-30] MEDS: hyDRALAzine 20 mg/mL INJ 1 mL 10 MG IVP ×3 (15:36→22:29)
--- NOTE | 2024-04-30 17:25 | P.HP_ITS ---
Providers/Chief Complaint 2 Admitting Physician: Bryant Canchola MD Primary Care Provider: Deandre Corbett MD Chief Complaint: ams History of Present Illness Mahnaz Magallanes is a 78 year old female with past medical history of hypertension, sleep apnea not compliant with CPAP, CKD in process of vein mapping to get a fistula as an outpatient for initiation of hemodialysis was brought into the ER today by her daughter because of confusion which has been ongoing on and off for last few weeks but got worse today morning. As per the patient, her daughter confusion is mostly worse when she wakes up in the morning. She also has history of high blood pressure for which her antihypertensives are being adjusted as an outpatient but her blood pressure is uncontrolled with usually running at 200 systolics for last few weeks to 1 month. She started to get an appointment to see her PCP but not able to get an opening. Patient complaining of difficulty in breathing on and off usually on minimal exertion or talking, cough which has been getting worse over last few weeks. She is complaining of headache since today morning. Denies any current chest pain but has been complaining of chest pain on and off. Review of Systems 2 General: Reports: 10 or more systems reviewed and unremarkable except in HPI and below Const: Denies: fever(s), chills, body aches, change in appetite, change in weight, malaise, night sweats, diaphoresis, change in sleep pattern, daytime sleepiness or snoring Eyes: Denies: change in vision, blurry vision, photophobia, eye discomfort or eye discharge ENMT: Denies: throat pain, enlarged tonsils, hoarseness, mouth pain, oral sores, dry mouth, tinnitus, nasal congestion or post nasal drip Card: Denies: chest pain, palpitations, irregular heart rhythm, edema, swelling of feet/ankles, lightheadedness, syncope, pre-syncope, dyspnea on exertion, orthopnea, leg pain with exertion or acrocyanosis Resp: Denies: dyspnea, productive cough, non-productive cough, wheezing, stridor, pain on inspiration, change in phlegm color, hemoptysis or chest congestion GI: Denies: abdominal pain, nausea, vomiting, hematemesis, coffee ground emesis, dysphagia, heartburn, diarrhea, constipation, bloating, GI cramping, change in bowel habits, pain on defecation, hematochezia or melena : Denies: flank pain, dysuria, urinary frequency, urinary urgency, urinary hesitancy, nocturia or hematuria Musc: Denies: neck pain, back pain, extremity pain, joint pain, joint swelling, joint redness, joint stiffness or limited range of motion Neuro: Denies: headache(s), numbness in extremities, weakness in extremities, sensory changes, lack of coordination, difficulty walking, frequent falls, dizziness, vertigo, confusion, Slurred speech present, difficulty communicating thoughts or seizure-like activity Psych: Denies: anxiety, depression, mood swings, panic attacks, hopelessness or irritability Endo: Denies: polyuria, polydipsia, tired all the time, cold intolerance, excessive sweating, flushing or heat intolerance Nghia/Lymph: Denies: easy bruising or easy bleeding All/Imm: Denies: tongue swelling, facial swelling or acute wheezing Medications/Allergies Home Medications Medication Instructions Recorded Confirmed Last Taken Type multivitamin 1 tab PO DAILY@1000 09/05/20 04/30/24 04/29/24 History acetaminophen 500 mg tablet 500 mg PO Q6H PRN Pain 09/17/20 04/30/24 11/01/20 History (Tylenol Extra Strength) aspirin 81 mg tablet,delayed 81 mg PO DAILY@1000 11/01/20 04/30/24 04/29/24 History release AFO #1 ea 02/20/21 04/30/24 Unknown Rx nitroglycerin 0.4 mg sublingual 0.4 mg sublingual Q5M PRN Chest 07/21/22 04/30/24 Unknown Rx tablet Pain #20 tabs alprazolam 0.5 mg tablet 0.5 mg PO DAILY PRN anxiety 07/02/23 04/30/24 Unknown Rx attacks 90 days #90 tabs cyclobenzaprine 10 mg tablet 5 mg (1/2 x 10 mg) PO TID PRN 07/02/23 04/30/24 Unknown Rx muscle spasm #90 tabs losartan 100 1 tab PO DAILY blood pressure #100 09/03/23 04/30/24 Unknown Rx mg-hydrochlorothiazide 25 mg tablet tabs metoprolol tartrate 100 mg tablet 100 mg PO BID blood pressure #200 09/21/23 04/30/24 Unknown Rx tabs amlodipine 10 mg tablet 10 mg PO DAILY High blood Pressure 09/23/23 04/30/24 04/29/24 Rx #100 tabs aripiprazole 5 mg tablet (Abilify) 7.5 mg (1.5 x 5 mg) PO DAILY 01/24/24 04/30/24 04/29/24 Rx mental health #135 tabs gemfibrozil 600 mg tablet (Lopid) 600 mg PO DAILY high fats #100 tabs 02/07/24 04/30/24 04/29/24 Rx oxybutynin chloride 10 mg 10 mg PO DAILY #100 tabs 02/28/24 04/30/24 04/29/24 Rx tablet,extended release 24 hr cholecalciferol (vitamin D3) 25 25 mcg PO DAILY 04/30/24 04/30/24 04/29/24 History mcg (1,000 unit) tablet (Vitamin D3) duloxetine 20 mg capsule,delayed 40 mg PO DAILY 04/30/24 04/30/24 04/29/24 History release ferrous sulfate 325 mg (65 mg 325 mg PO DAILY 04/30/24 04/30/24 04/29/24 History iron) tablet (Iron (ferrous sulfate)) hydralazine 100 mg tablet See Rx Instructions .Route .COMPLEX 04/30/24 04/30/24 04/29/24 History ipratropium bromide 17 1 puff inhalation QID PRN 04/30/24 04/30/24 Unknown History mcg/actuation HFA aerosol inhaler Shortness Of Breath Or Wheezing (Atrovent HFA) levothyroxine 75 mcg tablet 75 mcg PO DAILY 04/30/24 04/30/24 04/29/24 History losartan 50 mg tablet 50 mg PO DAILY 04/30/24 04/30/24 04/29/24 History omega 0-tvk-css-fish oil 300 1 cap PO DAILY 04/30/24 04/30/24 04/29/24 History mg-1,000 mg capsule (Fish Oil) pantoprazole 40 mg tablet,delayed 40 mg PO BID 04/30/24 04/30/24 04/29/24 History release trazodone 50 mg tablet 50 mg PO BEDTIME 04/30/24 04/30/24 04/29/24 History Allergies Allergy/AdvReac Type Severity Reaction Status Date / Time diphenhydramine Allergy Severe ALGY-Difficulty Verified 04/30/24 14:00 Breathing famotidine [From Pepcid] Allergy Severe ALGY-Difficulty Verified 04/30/24 14:00 Breathing omeprazole [From Prilosec] Allergy Severe ALGY-Difficulty Verified 04/30/24 14:00 Breathing ranitidine Allergy Severe ALGY-Difficulty Verified 04/30/24 14:00 Breathing Sulfa (Sulfonamide Allergy Intermediate Hives Verified 04/30/24 14:00 Antibiotics) tramadol Allergy Unknown Unknown Verified 04/30/24 14:00 Amoxicillin Allergy Mild Rash Uncoded 04/30/24 14:00 famodidin Allergy Unknown Unknown Uncoded 04/30/24 14:00 tramadol AdvReac Mild Mental Uncoded 04/30/24 14:00 status changes PFSH Acute 2 PFSH: Medical History Healthcare maintenance Secondary hyperparathyroidism Aortic stenosis Anxiety and depression Panic attacks & Long hx of depression, on Cymbalta > 10 years. CKD (chronic kidney disease) stage 4, GFR 15-29 ml/min UTI (urinary tract infection) Morbid obesity with BMI of 40.0-44.9, adult JASON on CPAP Constipation by delayed colonic transit Osteoarthritis of both knees Cystitis cystica Ankle and foot deformity, acquired Anemia in chronic kidney disease (CKD) PAD (peripheral artery disease) Mixed incontinence AAA (abdominal aortic aneurysm) GERD (gastroesophageal reflux disease) COPD (chronic obstructive pulmonary disease) CAD (coronary artery disease) HTN (hypertension) Hx of myocardial infarction Hyperlipidemia Hypothyroidism Fibromyalgia Rheumatoid arthritis Obesity (BMI 35.0-39.9 without comorbidity) Surgical History History of bilateral cataract extraction Hx of cholecystectomy History of right shoulder replacement History of hip replacement Family History Father , AT 40 Cancer Mother , AT AGE 76 Cancer Heart disease Other CAD (coronary artery disease) Diabetes Social History Smoking and tobacco/nicotine status: current every day tobacco/nicotine user (vaping) e-cigarettes E-Cigarette Details: vaporizer device Alcohol intake: current Alcohol intake frequency: holidays/special occasions only Substance/Drug Use: former Marital status: / Current occupational status: disabled Vitals/I&O/Wt Last Vital Signs Temp 97.7 F 04/30/24 17:10 Pulse 90 04/30/24 17:10 Resp 19 H 04/30/24 17:10 BP 200/86 04/30/24 17:11 Pulse Ox 96 04/30/24 17:10 O2 Del Method Room Air 04/30/24 17:10 04/30/24 04/30/24 04/30/24 06:59 14:59 22:59 Intake Total 0 / 0 Balance 0 / 0 Weight last 48 hrs Weight 98.883 kg Physical Exam 2 Narrative: General: No acute distress, AO x3, chronically sick appearing HEENT: PERRLA, pupils bilaterally equal and reactive Chest: Normal vesicular breath sounds, no added sounds, equal good air entry bilaterally CVS: S1-S2 regular, soft ejection systolic murmur at aortic region, no tachycardia, no gallops, no rubs Abdomen: Soft, nontender, no organomegaly, bowel sounds present Neuro: No focal deficits, no facial deformity, AO x3, power 5/5 in all limbs Data 04/30/24 14:09 04/30/24 14:09 A&P Assessment and plan (1) Hypertensive urgency: Goal blood pressures 25% of presenting blood pressure of 200 systolics which should be around 160 mmHg. Will have to go for stricter goal blood pressure within 24 to 48 hours given her history of AAA. For now restart home dose of amlodipine 10 mg oral daily, change hydralazine to 100 mg 3 times daily, change metoprolol to Coreg 12.5 mg twice daily. IV hydralazine 10 mg every 6 hour as needed for systolic blood pressure of more than 160 mmHg. Check echocardiogram. (2) Altered mental status: Most likely in setting of hypercapnia. Patient has history of sleep apnea not compliant with CPAP. Confusion mostly in morning. She tends to sleep for long part of the day. Check ABG in AM. If no hypercapnia there will be a concern for press syndrome given uncontrolled high blood pressure. Will plan for MRI. CT head negative for stroke. Appreciate urinalysis. No concerns for UTI for now. Chest x-ray negative for any consolidation. (3) CKD (chronic kidney disease) stage 4, GFR 15-29 ml/min: Baseline creatinine seems to be from 2.6-3.1. Creatinine at baseline. Being worked up as an outpatient with vein mapping for AV fistula in preparation for hemodialysis. Creatinine at baseline. Medical reconstruction done for nephrotoxic drugs. Continue to monitor. (4) Hypothyroidism: Check TSH. Continue with home dose of levothyroxine. Qualifiers: Hypothyroidism type: acquired Qualified Code(s): E03.9 - Hypothyroidism, unspecified (5) Headache: Tylenol as needed. Most likely in setting of uncontrolled hypertension. CT head negative for any stroke or bleeding. (6) Anemia in chronic kidney disease (CKD): Check iron panel, vitamin B12, folate levels. Hemoglobin currently stable. (7) AAA (abdominal aortic aneurysm): Abdominal ultrasound. Appreciate ultrasound done earlier this year. Qualifiers: Presence of rupture: without rupture Qualified Code(s): I71.4 - Abdominal aortic aneurysm, without rupture (8) Morbid obesity with BMI of 40.0-44.9, adult: (9) Secondary hyperparathyroidism: Plan Chest pain: Check troponin cycle. Check A1c, lipid panel, echocardiogram. Continue with home dose of aspirin. Will start statin accordingly. Continue with home dose of gemfibrozil. Could be in setting of hypertensive urgency. Shortness of breath: Not hypoxic. Patient does vape. Could be in setting of mild congestive heart failure. Check proBNP. IV Lasix 40 mg one-time. Patient does have history of sleep apnea. CODE STATUS: Daughter will be the DPOA. Full code. Cardiac renal nondialysis diet Protonix for PUD prophylaxis. Heparin 5000 every 12 hourly for DVT prophylaxis. Continue other chronic home medications including Xanax as needed, duloxetine, oxybutynin. Attestations 2 Medical Necessity Statement*: Admission for more than 2 midnights for management of hypertensive urgency in a patient with history of AAA, CKD, altered mental status while hypercapnia and press syndrome is ruled out. Diagnoses Hypertensive urgency I16.0 Altered mental status R41.82 CKD (chronic kidney disease) stage 4, GFR 15-29 ml/min N18.4 Acquired hypothyroidism E03.9 Hypothyroidism type: acquired Headache R51.9 Anemia in chronic kidney disease (CKD) N18.9; D63.1 Abdominal aortic aneurysm (AAA) without rupture I71.4 Presence of rupture: without rupture Morbid obesity with BMI of 40.0-44.9, adult E66.01; Z68.41 Secondary hyperparathyroidism N25.81
[2024-04-30] MEDS: hyDRALAzine 50 mg Tablet 100 MG PO ×2 (17:40→20:39)
[2024-04-30] MEDS: amlodipine 10 mg Tablet PO (17:40)
[2024-04-30] MEDS: carvedilol 12.5 mg Tablet PO (17:41)
[2024-04-30] MEDS: pantoprazole DR 40 mg Tablet PO (17:41)
[2024-04-30] MEDS: heparin 5,000 unit/mL INJ 1 mL 5000 UNIT SUBCUT (17:41)
[2024-04-30] MEDS: acetaminophen 325 mg Tablet 650 MG PO (17:45)
[2024-04-30 17:48] LABS: Iron 29 ug/dL (37-145); Percent Saturation 12.6 % (20-50); Total Iron Binding Capacity 229 mcg/dl; Unsaturated Iron Binding 200 ug/dL (112-347)
[2024-04-30 18:03] LABS: Procalcitonin 0.05 ng/mL (0-0.5); Vitamin B12 627 pg/mL (232-1245)
[2024-04-30] MEDS: FUROsemide 10 mg/mL SDV 4mL 40 MG IVP (18:36)
[2024-04-30] MEDS: trazodone 50 mg Tablet PO (20:39)
[2024-05-01] VITALS (10 sets, daily range): BP systolic 146–178; BP diastolic 61–75; PULSE 78–108; RESP 16–19; TEMP 36.4–37.1; O2SAT 91–96
[2024-05-01] MEDS: hyDRALAzine 20 mg/mL INJ 1 mL 10 MG IVP (03:10)
[2024-05-01 04:54] LABS: ABG PCO2 35.1 mmHg (35-45); ABG PH Result 7.42 (7.35-7.45); Alveolar-Arterial Oxygen Gradi 3.5 mmHg (5-10); Arterial Blood Gas Hematocrit 33.1 % (37-47); Base Excess ABG -1.5 mmol/L (-2.0-2.0); Blood Gas Allen Test Pos; Blood Gas Operator Identificat JDB; Blood Gas Sample Site Radial, right; Blood Gas Sample Type Arterial; Carboxyhemoglobin 1.4 %THgb (0.4-20.1); HCO3 ABG 22.6 mmol/L (22-26); HGB O2 Sat 94.4 % (95-100); Ionized Calcium Level - ABG 1.2 mmol/L (1.1-1.4); Methemoglobin 0.6 % (0.4-1.5); Oxygen Device ROOM AIR; Oxygen Saturation ABG 96.3; PO2 ABG 78.1 mmHg (80.0-100.0); PO2 FiO2 Ratio Arterial Blood 371; Potassium Level - ABG 3.3 mmol/L (3.5-5.0); Total Hemoglobin 10.8 g/dL (12-16)
[2024-05-01] MEDS: heparin 5,000 unit/mL INJ 1 mL 5000 UNIT SUBCUT ×2 (05:10→17:05)
[2024-05-01 05:13] LABS: Basophils % 0.3 %; Eosinophils # 0.2 10^3/uL (0.0-0.8); Eosinophils % 2.4 %; Hematocrit 25.2 % (36-47); Lymphocytes # 1.1 10^3/uL (0.8-4.8); Lymphocytes % 12.6 %; Mean Corpuscular HGB Conc 32.5 g/dL (30-55); Mean Corpuscular Hemoglobin 29.8 pg (27-33); Mean Corpuscular Volume 91.6 fl (85-98); Mean Platelet Volume 10.6 fL (7.4-10.4); Monocytes % 11.5 %; Neutrophils # 6.35 10^3/uL (1.8-7.7); Neutrophils % 72.9 %; Nucleated Red Blood Cells % 0 %; Platelet Count 304 10^3/cmm (157-399); Red Blood Count 2.75 10^6/uL (3.85-5.65); Red Cell Distribution Width 13.7 % (12.1-15.1); White Blood Count 8.72 10^3/uL (3.29-11.43)
[2024-05-01 05:41] LABS: Estmated Average Glucose 103; Hemoglobin A1C 5.2 % (4.0-6.0)
[2024-05-01 05:45] LABS: Procalcitonin 0.06 ng/mL (0-0.5)
[2024-05-01 05:51] LABS: Folate Level 11.4 ng/mL (4.8-37.3)
[2024-05-01 06:06] LABS: Alanine Aminotransferase < 5 U/L (0-33); Albumin Level 3.4 g/dL (3.5-5.2); Alkaline Phosphatase 67 U/L (35-105); Anion Gap 20.4 (5-19); Aspartate Amino Transferase 8 U/L (0-32); Blood Urea Nitrogen 36 mg/dL (8-23); Calcium 9.3 mg/dL (8.5-10.5); Carbon Dioxide 21 mmol/L (22-29); Chloride 99 mmol/L (98-107); Chol HDL Ratio 8.09 mg/dL (0.0-4.40); Cholesterol 275 mg/dL (0-200); Creatinine Clr Calc Pharmacy 19.7652; Glucose 106 mg/dL (65-115); HDL Cholesterol 34 mg/dL (60-100); LDL Cholesterol Calculated 215 mg/dL (50-129); LDL HDL Ratio 6.32 RATIO (0.00-3.22); Magnesium 1.6 mg/dL (1.7-2.3); Osmolality Calculated 293 mOsm/kg (285-295); Phosphorus 3.8 mg/dL (2.5-4.5); Potassium 3.4 mmol/L (3.5-5.1); Sodium 137 mmol/L (136-145); Total Bilirubin 0.3 mg/dL (0.15-1.2); Total Protein 7.4 g/dL (6.6-8.7); Triglycerides 128 mg/dL (0-150)
[2024-05-01] MEDS: pantoprazole DR 40 mg Tablet PO ×2 (09:02→17:05)
[2024-05-01] MEDS: levothyroxine 75 mcg Tablet PO (09:02)
[2024-05-01] MEDS: hyDRALAzine 50 mg Tablet 100 MG PO ×3 (09:02→20:08)
[2024-05-01] MEDS: aspirin 81 mg EC Tablet PO (09:02)
[2024-05-01] MEDS: ARIPiprazole 2 mg Tablet 7.5 MG PO (09:02)
[2024-05-01] MEDS: oxybutynin chloride XL 5 MG TABLET 10 MG PO (09:02)
[2024-05-01] MEDS: carvedilol 12.5 mg Tablet PO ×2 (09:02→17:05)
[2024-05-01] MEDS: losartan 50 mg Tablet PO (09:02)
[2024-05-01] MEDS: ALPRAZolam 0.5 mg Tablet PO (09:02)
[2024-05-01] MEDS: amlodipine 10 mg Tablet PO (09:02)
[2024-05-01] MEDS: duloxetine 20 mg Capsule 40 MG PO (09:02)
[2024-05-01] MEDS: gemfibrozil 600 mg Tablet PO (09:02)
[2024-05-01] MEDS: ferrous sulfate EC 325 mg Tablet PO (09:02)
--- NOTE | 2024-05-01 09:30 | USCV_ITS ---
Mahnaz Magallanes Age: 78 Gender: F : 1945 Exam Date: 05/01/2024 08:16 Ordering Phys: Bryant Canchola MD Technologist: Exam Location: [facility] [place]: sob cp BP: 167 / 80 HR: 95 Rhythm: Sinus Technical Quality: Adequate MEASUREMENTS (Male / Female) Normal Values 2D ECHO LV Diastolic Diameter PLAX 5.2 cm 4.2 - 5.9 / 3.9 - 5.3 cm IVS Diastolic Thickness 1.2 cm 0.6 - 1.0 / 0.6 - 0.9 cm IVS Systolic Thickness 1.9 cm LVPW Diastolic Thickness 1.6 cm 0.6 - 1.0 / 0.6 - 0.9 cm LVPW Systolic Thickness 1.9 cm LVOT Diameter 2.6 cm LV Ejection Fraction 2D Teich 68.0 % LV Ejection Fraction MOD 4C 73.5 % LV Ejection Fraction MOD 2C 53.8 % LV Ejection Fraction 2C AL 52.3 % LA Diameter 4.8 cm RA Systolic Volume 4C AL 44.5 ml RA Systolic Volume 4C MOD 44.4 ml Aorta at Sinotubular Diameter 2.9 cm DOPPLER AV Peak Velocity 267.3 cm/s LVOT Peak Velocity 141.0 cm/s AV Area Cont Eq vti 4.2 cm squared AV Area Cont Eq pk 2.7 cm squared MV Peak Velocity 290.0 cm/s MV Area PHT 7.4 cm squared TR Peak Velocity 150.0 cm/s TR Peak Gradient 9.0 mmHg TV Peak E Velocity 45.0 cm/s PV Peak Velocity 152.0 cm/s FINDINGS Left Ventricle Left ventricle is normal in size. LV systolic function is normal with EF of 55 to 60%. No regional wall motion abnormalities are seen Right Ventricle Normal in size and function Right Atrium Normal in size Left Atrium Dilated Mitral Valve Mitral valve is thickened and calcified. Mild mitral regurgitation. Moderate to severely elevated gradients across the across mitral valve of 9mmHg. Aortic Valve Grossly normal. Mild aortic stenosis with mean gradient of 18 mmHg Tricuspid Valve Insufficient TR jet to calculate RVSP Pulmonic Valve Not well visualized Pericardium Normal Aorta Normal in size IVC Not well visualized. CONCLUSIONS LV systolic function is normal with EF of 55-60% Left atrial dilation Mild mitral regurgitation. Moderate to severely elevated gradients across the across mitral valve of 9mmHg. Mild aortic stenosis with mean gradient of 18mmHg. Compared to prior echocardiogram from 2022, gradients across mitral valve have increased. Shan Zamarripa MD (Electronically Signed) Final Date: 02 May 2024 09:45 S
--- NOTE | 2024-05-01 09:30 | USCV_ITS ---
Mahnaz Magallanes Age: 78 Gender: F : 1945 Exam Date: 05/01/2024 07:22 Ordering Phys: Bryant Canchola MD Technologist: [facility]R [place]am Location: [facility] [place]ication: AAA HISTORY: Diameter (cm) AP x Transverse x Length Velocity (cm/s) Waveform Prox Aorta: 3.65 x 3.72 x 7.24 116.70 Triphasic Mid Aorta: 2.16 x 2.42 x 111.00 Triphasic Distal Aorta: 1.99 x 2.02 x 87.10 Triphasic Right Iliac Prox: 1.07 x 1.26 x 92.30 Triphasic Left Iliac Prox: 0.92 x 1.03 x 124.60 Triphasic Stent Prox Landing x x Aneurysmal Sac Max x x Lt Lat Sac Dim Rt Lat Sac Dim Stent Dist Landing x x Right Iliac Stent x x Left Iliac Stent x x Right Renal Art Left Renal Art FINDINGS: CONCLUSIONS TDS due to bowel gas Recommend further evaluation with CTA AAA measures 3.6 x 3.7 x 7.2cm. This appears similiar to prevous 07/10 considering limitations. Agustín Shen MD (Electronically Signed) Final Date: 01 May 2024 15:14 S
[2024-05-01] MEDS: nicotine 14 mg Patch 1 PATCH TRANSDERMA (09:40)
--- NOTE | 2024-05-01 11:30 | US_ITS ---
WS: [id number] RENAL ULTRASOUND HISTORY: ckd COMPARISON: 05/14/2021 TECHNIQUE: 2-D and color Doppler imaging of the kidney submitted. Right kidney: 6.9 cm x 3.7 cm x 3.8 cm. Cortex: 0.8 cm Diffuse moderate atrophy with cortical thinning and increased echogenicity. Very slight decrease in s ize of the kidneys since the prior study. No hydronephrosis. No mass. Several cortical cysts are iden tified. The largest from the superior pole measures 1.2 x 1.2 x 1.0 cm. Left kidney: 10.2 cm x 5.2 cm x 6.3 cm. Cortex: 1.2 cm Kidneys normal size but there is increased echogenicity throughout the kidney. The cortex remains nor mal thickness. Cyst mid kidney measures 3.2 x 3.3 x 2.8 cm. There are several cysts but no solid mass . Slight increase in size of the cyst in the mid kidney. Aorta: Mildly dilated aorta. Limited visualization. Only sagittal imaging of the aorta is measured wi th diameter 3.7 cm. Urinary Bladder: Normal distention. US/US renal BI* [id number] IMPRESSION: 1. Moderate RIGHT renal atrophy with cortical thinning has slightly progressed since the prior exam from 2020. 2. Increased echogenicity of each kidney suggesting chronic medical renal dise ase. 3. Bilateral renal cysts. No solid mass. 4. Mildly dilated abdominal aorta. Limited evaluation. Maximum diameter 3.7 cm . Similar to the prior ultrasound from 2020.
--- NOTE | 2024-05-01 11:44 | P.PN_ITS ---
Subjective 2 Subjective: No acute events overnight. Today morning patient was slightly anxious as per nursing staff and was given a dose of Xanax. Patient on examination is awake, alert but sleepy. States she did not sleep well. Denies any nausea vomiting, headache, dizziness currently. Denies any difficulty in breathing. Remains on room air. Vitals/I&O/Wt Last Vital Signs Temp 97.5 F L 05/01/24 11:35 Pulse 93 05/01/24 11:35 Resp 18 05/01/24 11:35 BP 175/75 05/01/24 11:35 Pulse Ox 93 05/01/24 11:35 O2 Del Method Room Air 05/01/24 11:35 04/30/24 05/01/24 05/01/24 22:59 06:59 14:59 Intake Total 240 / 240 120 / 360 480 / 480 Output Total 300 / 300 600 / 900 300 / 300 Balance -60 / -60 -480 / -540 180 / 180 Weight last 48 hrs Weight 97.386 kg Weight 98.339 kg Weight 98.883 kg Weight 98.883 kg Physical Exam 2 Narrative: General: No acute distress, AO x3, chronically sick appearing HEENT: PERRLA, pupils bilaterally equal and reactive Chest: Normal vesicular breath sounds, no added sounds, equal good air entry bilaterally CVS: S1-S2 regular, soft ejection systolic murmur at aortic region, no tachycardia, no gallops, no rubs Abdomen: Soft, nontender, no organomegaly, bowel sounds present Neuro: No focal deficits, no facial deformity, AO x3, power 5/5 in all limbs Data 05/01/24 04:15 05/01/24 04:15 Micro: Microbiology 04/30/24 14:45 Urine Culture - Preliminary Urine,Clean Catch Gram Negative Rods A&P Assessment and plan (1) Hypertensive urgency: Goal blood pressures 25% of presenting blood pressure of 200 systolics which should be around 160 mmHg. Will have to go for stricter goal blood pressure within 24 to 48 hours given her history of AAA. Blood pressure is better controlled. Continue with amlodipine 10 mg oral daily, hydralazine 100 mg 3 times daily, Coreg 12.5 mg twice daily. Increase home dose of losartan to 100 mg daily. Echocardiogram results awaited. (2) Altered mental status: Resolved. Could be in setting of sleep apnea a. Patient drowsy today after the dose of Xanax. Was awake and alert prior to that. Continue with home dose of, duloxetine. TSH and vitamin B12 levels appreciated. ABG shows no hypercapnia. Patient would benefit from sleep study as an outpatient with PCP. Discussed detail with patient's daughter at bedside. All the questions were answered. Will discontinue Xanax. If continues to remain drowsy after discontinuation of Xanax we will plan to check MRI brain. CT head negative for stroke. Appreciate urinalysis. No concerns for UTI for now. Chest x-ray negative for any consolidation. (3) CKD (chronic kidney disease) stage 4, GFR 15-29 ml/min: Baseline creatinine seems to be from 2.6-3.1. Creatinine at baseline. Being worked up as an outpatient with vein mapping for AV fistula in preparation for hemodialysis. Creatinine at baseline. Medical reconstruction done for nephrotoxic drugs. Continue to monitor. (4) Hypothyroidism: Appreciate TSH. Continue with home dose of levothyroxine. Qualifiers: Hypothyroidism type: acquired Qualified Code(s): E03.9 - Hypothyroidism, unspecified (5) Headache: Tylenol as needed. Most likely in setting of uncontrolled hypertension. CT head negative for any stroke or bleeding. (6) Anemia in chronic kidney disease (CKD): Appreciate iron panel, vitamin B12, folate levels. Hemoglobin currently stable. (7) AAA (abdominal aortic aneurysm): Abdominal ultrasound show stable aneurysm. Qualifiers: Presence of rupture: without rupture Qualified Code(s): I71.4 - Abdominal aortic aneurysm, without rupture (8) Morbid obesity with BMI of 40.0-44.9, adult: (9) Secondary hyperparathyroidism: Plan Chest pain: Check troponin. Add to morning labs. Appreciate A1c, lipid panel, awaiting echocardiogram. Continue with home dose of aspirin. Will start statin accordingly. Continue with home dose of gemfibrozil. Depending on the echo we will plan for Lexiscan stress test to rule out ACS. Shortness of breath: Not hypoxic. Patient does vape. Could be in setting of mild congestive heart failure. Patient does have history of sleep apnea. Start on nicotine patch. CODE STATUS: Daughter will be the DPOA. Full code. Cardiac renal nondialysis diet Protonix for PUD prophylaxis. Heparin 5000 every 12 hourly for DVT prophylaxis. Continue other chronic home medications including duloxetine, oxybutynin. Attestations 2 Medical Necessity Statement*: Requires further hospitalization for management of uncontrolled hypertension while antihypertensives are adjusted, altered mental status most likely in setting close sleep apnea, uncontrolled hypertension while other etiology including press syndrome is ruled out, polypharmacy in a patient with history of CKD Diagnoses Hypertensive urgency I16.0 Altered mental status R41.82 CKD (chronic kidney disease) stage 4, GFR 15-29 ml/min N18.4 Acquired hypothyroidism E03.9 Hypothyroidism type: acquired Headache R51.9 Anemia in chronic kidney disease (CKD) N18.9; D63.1 Abdominal aortic aneurysm (AAA) without rupture I71.4 Presence of rupture: without rupture Morbid obesity with BMI of 40.0-44.9, adult E66.01; Z68.41 Secondary hyperparathyroidism N25.81
[2024-05-01 12:31] LABS: Troponin T (5th) Once 26 ng/L (0-10)
[2024-05-01] MEDS: trazodone 50 mg Tablet PO (20:08)
[2024-05-02] MEDS: hyDRALAzine 20 mg/mL INJ 1 mL 10 MG IVP (03:22)
[2024-05-02 03:47] VITALS: BP 180/71; PULSE 118; RESP 18; TEMP 36.9; O2SAT 90
[2024-05-02] MEDS: heparin 5,000 unit/mL INJ 1 mL 5000 UNIT SUBCUT (04:50)
[2024-05-02 05:07] LABS: Basophils # 0.1 10^3/uL (0.0-0.1); Basophils % 0.6 %; Eosinophils # 0.2 10^3/uL (0.0-0.8); Eosinophils % 2.8 %; Hematocrit 26.5 % (36-47); Lymphocytes # 1.2 10^3/uL (0.8-4.8); Lymphocytes % 13.9 %; Mean Corpuscular HGB Conc 32.5 g/dL (30-55); Mean Corpuscular Hemoglobin 30.1 pg (27-33); Mean Corpuscular Volume 92.7 fl (85-98); Mean Platelet Volume 10.3 fL (7.4-10.4); Monocytes # 0.8 10^3/uL (0.2-0.9); Monocytes % 10.1 %; Neutrophils # 6.04 10^3/uL (1.8-7.7); Neutrophils % 72.4 %; Nucleated Red Blood Cells % 0 %; Platelet Count 310 10^3/cmm (157-399); Red Blood Count 2.86 10^6/uL (3.85-5.65); Red Cell Distribution Width 13.5 % (12.1-15.1); White Blood Count 8.34 10^3/uL (3.29-11.43)
[2024-05-02 05:12] VITALS: PULSE 100
[2024-05-02 05:23] LABS: Alanine Aminotransferase 7 U/L (0-33); Albumin Level 3.4 g/dL (3.5-5.2); Alkaline Phosphatase 76 U/L (35-105); Anion Gap 17.5 (5-19); Aspartate Amino Transferase 9 U/L (0-32); Blood Urea Nitrogen 33 mg/dL (8-23); Calcium 9.2 mg/dL (8.5-10.5); Carbon Dioxide 20 mmol/L (22-29); Chloride 101 mmol/L (98-107); Creatinine Clr Calc Pharmacy 17.1299; Glucose 139 mg/dL (65-115); Osmolality Calculated 290 mOsm/kg (285-295); Potassium 3.5 mmol/L (3.5-5.1); Sodium 135 mmol/L (136-145); Total Bilirubin 0.2 mg/dL (0.15-1.2); Total Protein 7.4 g/dL (6.6-8.7)
[2024-05-02 07:21] VITALS: BP 149/65; PULSE 110; RESP 16; TEMP 36.7; O2SAT 94
[2024-05-02 08:13] VITALS: BP 149/65
[2024-05-02] MEDS: carvedilol 12.5 mg Tablet PO (08:13)
[2024-05-02] MEDS: losartan 50 mg Tablet 100 MG PO (08:13)
[2024-05-02] MEDS: aspirin 81 mg EC Tablet PO (08:13)
[2024-05-02] MEDS: gemfibrozil 600 mg Tablet PO (08:13)
[2024-05-02] MEDS: duloxetine 20 mg Capsule 40 MG PO (08:13)
[2024-05-02] MEDS: oxybutynin chloride XL 5 MG TABLET 10 MG PO (08:13)
[2024-05-02] MEDS: amlodipine 10 mg Tablet PO (08:14)
[2024-05-02] MEDS: ferrous sulfate EC 325 mg Tablet PO (08:14)
[2024-05-02] MEDS: pantoprazole DR 40 mg Tablet PO (08:14)
[2024-05-02] MEDS: levothyroxine 75 mcg Tablet PO (08:14)
[2024-05-02] MEDS: acetaminophen 325 mg Tablet 650 MG PO (08:14)
[2024-05-02] MEDS: nicotine 14 mg Patch 1 PATCH TRANSDERMA (08:14)
[2024-05-02] MEDS: hyDRALAzine 50 mg Tablet 100 MG PO (08:14)
[2024-05-02] MEDS: ARIPiprazole 2 mg Tablet 7.5 MG PO (08:14)
--- NOTE | 2024-05-02 08:32 | ECG_ITS ---
[facility] Test Date: 2024-05-02 Pat Name: Mahnaz Magallanes Department: Room: 252 Gender: Female [employer]: : 1945 Requested By: Bryant Canchola Order Number: [id number] Angela MD: Shan Zamarripa M.D. Measurements Intervals Braggs Rate: 96 P: 51 MT: 203 QRS: -18 QRSD: 84 T: 79 QT: 358 QTc: 454 Interpretive Statements SINUS RHYTHM POSSIBLE LEFT ATRIAL ENLARGEMENT [-0.1mV P-WAVE IN V1/V2] POSSIBLE ANTERIOR MYOCARDIAL INFARCTION , OF INDETERMINATE AGE [30 ms Q WAVE IN V3/V4, OR R < 0.2 mV IN V4] Compared to ECG 04/30/2024 14:02:32 First degree AV block no longer present Left ventricular hypertrophy no longer present ST (T wave) deviation no longer present Myocardial infarct finding still present Electronically Signed On 05-02-2024 15:14:16 SEO STRATEGIST by Shan Zamarripa M.D. [email or web address]
[2024-05-02 11:26] VITALS: BP 147/66; PULSE 83; RESP 16; TEMP 36.6; O2SAT 94
--- NOTE | 2024-05-02 11:29 | P.DS_ITS ---
Discharge Providers Date of Admission: 04/30/24 16:03 Date of Discharge: May 02, 2024 Attending Provider at Admission: Bryant Canchola MD Attending Provider at Discharge: Bryant Canchola MD Primary Care Provider: Deandre Corbett MD Diagnoses at Discharge Discharge Diagnosis (1) Mitral stenosis: Status: Acute (2) Hypertensive urgency: Status: Acute (3) Altered mental status: Status: Acute (4) CKD (chronic kidney disease) stage 4, GFR 15-29 ml/min: Status: Acute (5) Hypothyroidism: Status: Acute Qualifiers: Hypothyroidism type: acquired Qualified Code(s): E03.9 - Hypothyroidism, unspecified (6) Headache: Status: Acute (7) Anemia in chronic kidney disease (CKD): Status: Acute (8) AAA (abdominal aortic aneurysm): Status: Acute Qualifiers: Presence of rupture: without rupture Qualified Code(s): I71.4 - Abdominal aortic aneurysm, without rupture (9) Morbid obesity with BMI of 40.0-44.9, adult: Status: Acute (10) Secondary hyperparathyroidism: Status: Acute Reason for Visit Reason for Visit: [facility] Hospital Course Hospital Course Mahnaz Magallanes is a 78 year old female with past medical history of hypertension, sleep apnea not compliant with CPAP, CKD in process of vein mapping to get a fistula as an outpatient for initiation of hemodialysis was brought into the ER today by her daughter because of confusion which has been ongoing on and off for last few weeks but got worse today morning. As per the patient, her daughter confusion is mostly worse when she wakes up in the morning. She also has history of high blood pressure for which her antihypertensives are being adjusted as an outpatient but her blood pressure is uncontrolled with usually running at 200 systolics for last few weeks to 1 month. She started to get an appointment to see her PCP but not able to get an opening. Patient complaining of difficulty in breathing on and off usually on minimal exertion or talking, cough which has been getting worse over last few weeks. She is complaining of headache since today morning. Denies any current chest pain but has been complaining of chest pain on and off. Patient was admitted to the hospital further evaluation and management of uncontrolled hypertension with concerns for hypertensive urgency. Her antihypertensives during hospitalization were modified after which her blood pressures are better controlled. She worked well with physical therapy. Echocardiogram was done which showed a normal EF but showed concerns for moderately severe moderate mitral stenosis with gradient of 9 mmHg across the valve. It is believed patient's origin of confusion is most likely in setting of baseline sleep apnea, polypharmacy from her Xanax. Patient was counseled in detail to use her home CPAP. She might need a repeat sleep study hence has been ordered. She was directed in detail about using Xanax once daily only as needed. She is to check her blood pressure daily at home maintain a blood pressure diary and follow-up with a primary care provider within next 2 weeks for further adjustment of antihypertensives as needed. During hospitalization abdominal ultrasound was done which showed a stable AAA. She will follow-up with nurse practitioner from cardiology office as an outpatie nt for further workup and possible referral to cardiothoracic surgery for mitral valve repair. She was seen by physical therapist during hospitalization and home health has been arranged. Safe discharge plan were discussed detail with patient and patient daughter over the phone and all the questions were answered. Physical Exam Narrative: General: No acute distress, AO x3, chronically sick appearing HEENT: PERRLA, pupils bilaterally equal and reactive Chest: Normal vesicular breath sounds, no added sounds, equal good air entry bilaterally CVS: S1-S2 regular, soft ejection systolic murmur at aortic region, no tachycardia, no gallops, no rubs Abdomen: Soft, nontender, no organomegaly, bowel sounds present Neuro: No focal deficits, no facial deformity, AO x3, power 5/5 in all limbs Discharge Data Studies Completed and Pending Completed Studies During Hospitalization Category Date Time Status CT head wo con* [id number] Stat Cat Scan 04/30/24 14:22 Completed XR chest 1V portable [id number] Stat Exams 04/30/24 13:38 Com[place] [id number] Routine Ultrasound 05/01/24 09:30 Completed CV. echo complete* [id number] Routine Ultrasound 05/01/24 09:30 Completed US renal BI* [id number] Routine Ultrasound 05/01/24 11:30 Completed Radiology Impressions Chest X-Ray 04/30/24 13:38 IMPRESSION: No acute findings. Head CT 04/30/24 14:22 IMPRESSION: 1. No acute intracranial abnormality. 2. Partial opacification of the left maxillary sinus with air-fluid levels Renal Ultrasound 05/01/24 11:30 IMPRESSION: 1. Moderate RIGHT renal atrophy with cortical thinning has slightly progressed since the prior exam from 2020. 2. Increased echogenicity of each kidney suggesting chronic medical renal disease. 3. Bilateral renal cysts. No solid mass. 4. Mildly dilated abdominal aorta. Limited evaluation. Maximum diameter 3.7 cm. Similar to the prior ultrasound from 2020. Echocardiogram: CONCLUSIONS LV systolic function is normal with EF of 55-60% Left atrial dilation Mild mitral regurgitation. Moderate to severely elevated gradients across the across mitral valve of 9mmHg. Mild aortic stenosis with mean gradient of 18mmHg. Compared to prior echocardiogram from 2022, gradients across mitral valve have increased. Shan Zamarripa MD (Electronically Signed) Final Date: 02 May 2024 09:45 Laboratory Results WBC 8.34 10^3/uL (3.29-11.43) 05/02/24 04:34 RBC 2.86 10^6/uL (3.85-5.65) L 05/02/24 04:34 Hgb 8.60 g/dL (11.27-16.99) L 05/02/24 04:34 Hct 26.5 % (36-47) L 05/02/24 04:34 MCV 92.7 fl (85-98) 05/02/24 04:34 MCH 30.1 pg (27-33) 05/02/24 04:34 MCHC 32.5 g/dL (30-55) 05/02/24 04:34 RDW 13.5 % (12.1-15.1) 05/02/24 04:34 Plt Count 310 10^3/cmm (157-399) 05/02/24 04:34 MPV 10.3 fL (7.4-10.4) 05/02/24 04:34 Neut % (Auto) 72.4 % 05/02/24 04:34 Lymph % (Auto) 13.9 % 05/02/24 04:34 [place] % (Auto) 10.1 % 05/02/24 04:34 Eos % (Auto) 2.8 % 05/02/24 04:34 Baso % (Auto) 0.6 % 05/02/24 04:34 Neut # (Auto) 6.04 10^3/uL (1.8-7.7) 05/02/24 04:34 Lymph # (Auto) 1.2 10^3/uL (0.8-4.8) 05/02/24 04:34 [place] # (Auto) 0.8 10^3/uL (0.2-0.9) 05/02/24 04:34 Eos # (Auto) 0.2 10^3/uL (0.0-0.8) 05/02/24 04:34 Baso # (Auto) 0.1 10^3/uL (0.0-0.1) 05/02/24 04:34 Nucleated RBC % (auto) 0 % 05/02/24 04:34 Nucleated RBCs # 0.0 /100WBC 05/02/24 04:34 Specimen Type Arterial 05/01/24 04:37 Sample Site Radial, right 05/01/24 04:37 ABG pH 7.42 (7.35-7.45) 05/01/24 04:37 ABG pCO2 35.1 mmHg (35-45) 05/01/24 04:37 ABG pO2 78.1 mmHg (80.0-100.0) L 05/01/24 04:37 ABG PO2/FiO2 Ratio 371 05/01/24 04:37 ABG HCO3 22.6 mmol/L (22-26) 05/01/24 04:37 ABG O2 Saturation 96.3 05/01/24 04:37 ABG Base Excess -1.5 mmol/L (-2.0-2.0) 05/01/24 04:37 Herrera Test Pos 05/01/24 04:37 A-a O2 Gradient 3.5 mmHg (5-10) L 05/01/24 04:37 Hematocrit 33.1 % (37-47) L 05/01/24 04:37 Hgb O2 Saturation 94.4 % (95-100) L 05/01/24 04:37 Carboxyhemoglobin 1.4 %THgb (0.4-20.1) 05/01/24 04:37 Methemoglobin 0.6 % (0.4-1.5) 05/01/24 04:37 Total Hemoglobin 10.8 g/dL (12-16) L 05/01/24 04:37 Sodium 139.0 mmol/L (131-143) 05/01/24 04:37 Potassium 3.3 mmol/L (3.5-5.0) L 05/01/24 04:37 Glucose 108.0 mg/dL (70-115) 05/01/24 04:37 Ionized Calcium 1.2 mmol/L (1.1-1.4) 05/01/24 04:37 O2 Delivery Device Room air 05/01/24 04:37 FiO2 21.0 % 05/01/24 04:37 Travel Accommodations Rater ID [id number] 05/01/24 04:37 Sodium 135 mmol/L (136-145) L 05/02/24 04:34 Potassium 3.5 mmol/L (3.5-5.1) 05/02/24 04:34 Chloride 101 mmol/L (98-107) 05/02/24 04:34 Carbon Dioxide 20 mmol/L (22-29) L 05/02/24 04:34 Anion Gap 17.5 (5-19) 05/02/24 04:34 BUN 33 mg/dL (8-23) H 05/02/24 04:34 Creatinine 3.0 mg/dL (0.5-0.9) H 05/02/24 04:34 GFR Calculation Not Reportable 05/02/24 04:34 Glucose 139 mg/dL (65-115) H 05/02/24 04:34 Estimat Average Glucose 103 05/01/24 04:15 Hemoglobin A1c 5.2 % (4.0-6.0) 05/01/24 04:15 Calculated Osmolality 290 mOsm/kg (285-295) 05/02/24 04:34 Calcium 9.2 mg/dL (8.5-10.5) 05/02/24 04:34 Phosphorus 3.8 mg/dL (2.5-4.5) 05/01/24 04:15 Magnesium 1.6 mg/dL (1.7-2.3) L 05/01/24 04:15 Iron 29 ug/dL (37-145) L 04/30/24 14:09 TIBC 229 mcg/dl 04/30/24 14:09 % Saturation 12.6 % (20-50) L 04/30/24 14:09 Unsat Iron Binding 200 ug/dL (112-347) 04/30/24 14:09 Total Bilirubin 0.2 mg/dL (0.15-1.2) 05/02/24 04:34 AST 9 U/L (0-32) 05/02/24 04:34 ALT 7 U/L (0-33) 05/02/24 04:34 Alkaline Phosphatase 76 U/L (35-105) 05/02/24 04:34 Ammonia 14 umol/L (11-51) 04/30/24 14:09 Troponin T 5th Gen ng/L 26 ng/L (0-10) H 05/01/24 04:15 Total Protein 7.4 g/dL (6.6-8.7) 05/02/24 04:34 Albumin 3.4 g/dL (3.5-5.2) L 05/02/24 04:34 Globulin 4.0 g/dL (1.3-4.6) 05/02/24 04:34 Triglycerides 128 mg/dL (0-150) 05/01/24 04:15 Cholesterol 275 mg/dL (0-200) H 05/01/24 04:15 LDL Cholesterol, Calc 215 mg/dL (50-129) H 05/01/24 04:15 HDL Cholesterol 34 mg/dL (60-100) L 05/01/24 04:15 LDL/HDL Ratio 6.32 RATIO (0.00-3.22) H 05/01/24 04:15 Cholesterol/HDL Ratio 8.09 mg/dL (0.0-4.40) H 05/01/24 04:15 Vitamin B12 627 pg/mL (232-1245) 04/30/24 14:09 Folate 11.4 ng/mL (4.8-37.3) 05/01/24 04:15 Procalcitonin 0.06 ng/mL (0-0.5) 05/01/24 04:15 TSH 2.92 uIU/mL (0.27-4.20) 04/30/24 14:09 Urine Color Yellow (Yellow) 04/30/24 14:45 Urine Appearance Cloudy (CLEAR) A 04/30/24 14:45 Urine pH 6.0 (5-7) 04/30/24 14:45 Ur Specific [place] 1.013 (1.005-1.030) 04/30/24 14:45 Urine Protein 3+ (Negative) A 04/30/24 14:45 Urine Glucose (UA) Negative (Normal) 04/30/24 14:45 Urine Ketones Negative (Negative) 04/30/24 14:45 Urine Blood Negative (Negative) 04/30/24 14:45 Urine Nitrate Negative (Negative) 04/30/24 14:45 Urine Bilirubin Negative (Negative) 04/30/24 14:45 Urine Urobilinogen 0.2 mg/dL (Negative) 04/30/24 14:45 Ur Leukocyte Esterase Trace (Negative) A 04/30/24 14:45 Urine RBC 0-2 /hpf (0-2) 04/30/24 14:45 Urine WBC 21-50 /hpf (0-5) H 04/30/24 14:45 Ur Squamous Epith Cells 0-5 /hpf (0-5) 04/30/24 14:45 Amorphous Sediment Not Reportable 04/30/24 14:45 Urine Bacteria Exceeds /hpf (NONE) 04/30/24 14:45 Hyaline Casts 2.90 /lpf 04/30/24 14:45 Ethyl Alcohol < 10 mg/dL (0-10) 04/30/24 14:09 Vitals Last Vital Signs Temp 98.1 F 05/02/24 07:21 Pulse 110 H 05/02/24 07:21 Resp 16 05/02/24 07:21 BP 149/65 05/02/24 08:13 Pulse Ox 94 05/02/24 07:21 O2 Del Method Room Air 05/02/24 07:21 Discharge Plan Discharge Patient Disposition: Home Condition: Stable Prescriptions: New carvedilol 12.5 mg Tablet 25 mg PO BID 30 Days Qty: 120 0RF furosemide [Lasix] 40 mg tablet 40 mg PO DAILY PRN (Reason: weight gain) Qty: 14 0RF simvastatin 40 mg tablet 40 mg PO DAILY Qty: 30 0RF Continued multivitamin Tablet 1 tab PO DAILY@1000 acetaminophen [Tylenol Extra Strength] 500 mg tablet 500 mg PO Q6H PRN (Reason: Pain) (DME) AFO See Rx Instructions .Route .MEDSUPPLY Qty: 1 0RF Rx Instructions: As directed LAURA&O alprazolam 0.5 mg tablet 0.5 mg PO DAILY PRN (Reason: anxiety attacks) 90 Days Qty: 90 2RF nitroglycerin 0.4 mg tablet, sublingual 0.4 mg SUBLINGUAL Q5M PRN (Reason: Chest Pain) Qty: 20 3RF Rx Instructions: do not exceed 3 doses per episode amlodipine 10 mg tablet 10 mg PO DAILY Qty: 100 3RF aripiprazole [Abilify] 5 mg tablet 7.5 mg PO DAILY Qty: 135 1RF oxybutynin chloride 10 mg tablet extended release 24hr 10 mg PO DAILY Qty: 100 1RF aspirin 81 mg tablet,delayed release (DR/EC) 81 mg PO DAILY@1000 ferrous sulfate [Iron (ferrous sulfate)] 325 mg (65 mg iron) Tablet 325 mg PO DAILY cholecalciferol (vitamin D3) [Vitamin D3] 25 mcg (1,000 unit) Tablet 25 mcg PO DAILY omega 5-jcj-mqj-fish oil [Fish Oil] 300-1,000 mg Capsule 1 cap PO DAILY trazodone 50 mg tablet 50 mg PO BEDTIME levothyroxine 75 mcg tablet 75 mcg PO DAILY pantoprazole 40 mg tablet,delayed release (DR/EC) 40 mg PO BID duloxetine 20 mg capsule,delayed release(DR/EC) 40 mg PO DAILY Atrovent HFA 17 mcg/actuation HFA aerosol inhaler 1 puff inhalation QID PRN (Reason: Shortness Of Breath Or Wheezing) Changed losartan 50 mg tablet 100 mg PO DAILY 30 Days Qty: 60 0RF hydralazine 100 mg tablet 100 mg PO TID Qty: 90 0RF Discontinued cyclobenzaprine 10 mg tablet 5 mg PO TID PRN (Reason: muscle spasm) Qty: 90 1RF losartan-hydrochlorothiazide 100-25 mg tablet 1 tab PO DAILY Qty: 100 1RF metoprolol tartrate 100 mg tablet 100 mg PO BID Qty: 200 2RF gemfibrozil [Lopid] 600 mg tablet 600 mg PO DAILY Qty: 100 1RF Discharge Orders: Discharge Order (Routine); Ordered 05/02/24 Ordered By: Bryant Canchola Referrals: [facility] ([facility]) [Outside] Deandre Corbett MD [Primary Care Provider] - (We have notified your physician's clinic of the need for a follow-up appointment to be scheduled. If you have not heard from them within the next 2 business days, please call them directly. ) Elda Cody FNP [Nurse Practitioner] - 05/16/24 8:30 am Discharge Diet: Advance as tolerated Discharge Activity: Resume usual activity and Increase activity as tolerated Patient Instructions: Furosemide (By mouth), Carvedilol (By mouth), Altered Mental Status (ED), Opioid Safety Activity Restrictions/Additional Instructions: Goal blood pressures less than 140/90 mmHg. Please check your blood pressure daily at home maintain blood pressure diary and follow-up with a primary care provider within next 2 weeks for further adjustment of antihypertensive. Going forward you will be taking hydralazine 100 mg 3 times a day, Coreg 25 mg twice daily, amlodipine 10 mg oral daily, losartan 100 mg oral daily. Please follow-up with Elda/nurse practitioner from cardiology office within next 2 weeks to discuss about mitral stenosis. Restrict fluid intake to less than 1500 cc, salt intake to less than 2 g daily. Advised to check his weight daily at home. Is advised that weight today would be the dry weight and if body weight increases by around 5 pounds, patient is to take an extra dose of Lasix daily till body weight comes down to weight today. If not able to come down to dry body weight in 1 week, then is to call cardiology office for further recommendations. Patient was counseled in detail to take medications regularly as prescribed. Discharge Attestations Time Spent in Discharge Care*: greater than 30 min Specific Discharge Activities: educating patient, educating and/or supporting family/caregiver, discussing with pcp/other providers, discussing with senior case manager/social workers/dc planners, documenting/other paperwork and evaluating patient/reviewing data Status at Discharge: Cognitive status at discharge: mildly impaired cognition , Behavioral status at discharge: cooperative , Functional status at discharge: uses cane/walker , Overall status at discharge: patient is progressing back to baseline Quality Metrics Clinical Quality Measures [ No reported AMI, CVA or VTE this stay] Coding Level of Care Code 08431 Total time (in minutes) for Discharge: 60 Diagnoses Mitral stenosis I05.0 Hypertensive urgency I16.0 Altered mental status R41.82 CKD (chronic kidney disease) stage 4, GFR 15-29 ml/min N18.4 Acquired hypothyroidism E03.9 Hypothyroidism type: acquired Headache R51.9 Anemia in chronic kidney disease (CKD) N18.9; D63.1 Abdominal aortic aneurysm (AAA) without rupture I71.4 Presence of rupture: without rupture Morbid obesity with BMI of 40.0-44.9, adult E66.01; Z68.41 Secondary hyperparathyroidism N25.81
[2024-05-02 13:53] VITALS: BP 147/66; PULSE 83; O2SAT 94
== END 2024-05-02 13:54 | disposition home health service (06) | DRG 305 ==
LOC: ER 16:05 → MEDSURG 16:20
PROVIDERS: Admitting Provider Student in an Organized Health Care Education/Training Program; Emergency Provider Emergency Medicine; PCP Family Medicine Adult Medicine; Visit Provider Student in an Organized Health Care Education/Training Program
DX: I16.0 Hypertensive urgency (principal); N18.4 Chronic kidney disease, stage 4 (severe); Z68.41 Body mass index [BMI] 40.0-44.9, adult; N25.81 Secondary hyperparathyroidism of renal origin; I12.9 Hypertensive chronic kidney disease with stage 1 through stage 4 chronic kidney disease, or unspecified chronic kidney disease; I05.0 Rheumatic mitral stenosis; R41.82 Altered mental status, unspecified; T42.4X5A Adverse effect of benzodiazepines, initial encounter; E03.9 Hypothyroidism, unspecified; R51.9 Headache, unspecified; D63.1 Anemia in chronic kidney disease; I71.40 Abdominal aortic aneurysm, without rupture, unspecified; E66.01 Morbid (severe) obesity due to excess calories; G47.33 Obstructive sleep apnea (adult) (pediatric); Z91.199 Patient's noncompliance with other medical treatment and regimen due to unspecified reason; F17.290 Nicotine dependence, other tobacco product, uncomplicated; M06.9 Rheumatoid arthritis, unspecified; I25.10 Atherosclerotic heart disease of native coronary artery without angina pectoris; J44.9 Chronic obstructive pulmonary disease, unspecified; K21.9 Gastro-esophageal reflux disease without esophagitis; I73.9 Peripheral vascular disease, unspecified; F41.9 Anxiety disorder, unspecified; F32.A Depression, unspecified; I25.2 Old myocardial infarction; Z79.82 Long term (current) use of aspirin
CPT/HCPCS: 36415; 36600; 70450; 71045; 76706; 76770; 80051; 80053; 80061; 80307; 81001; 82140; 82330; 82607; 82746; 82805; 83036; 83540; 83550; 83735; 84100; 84145; 84443; 84484; 85025; 87077; 87086; 87186; 93005; 93306; 94664; 96372; 96374; 96376; 97110; 97161; 99285; J0360; J1644; J1940

== ENCOUNTER → 2024-05-16 07:56 | Outpatient (BNVA) | payer MEDICARE, MEDICAID, SELFPAY | PROVIDERS: PCP Family Medicine Adult Medicine; Visit Provider Nurse Practitioner Family | DX: I08.0 Rheumatic disorders of both mitral and aortic valves (principal); I73.9 Peripheral vascular disease, unspecified; I25.10 Atherosclerotic heart disease of native coronary artery without angina pectoris; I12.9 Hypertensive chronic kidney disease with stage 1 through stage 4 chronic kidney disease, or unspecified chronic kidney disease; N18.4 Chronic kidney disease, stage 4 (severe); F17.290 Nicotine dependence, other tobacco product, uncomplicated | CPT/HCPCS: 99214 ==

== ENCOUNTER 2024-05-19 11:55 | Outpatient (CLI) | payer MEDICARE, MEDICAID, SELFPAY ==
[2024-05-19 12:38] LABS: Basophils # 0.1 10^3/uL (0.0-0.1); Basophils % 0.5 %; Eosinophils # 0.3 10^3/uL (0.0-0.8); Eosinophils % 2.3 %; Hematocrit 23.6 % (36-47); Lymphocytes # 0.8 10^3/uL (0.8-4.8); Lymphocytes % 7.5 %; Mean Corpuscular HGB Conc 32.2 g/dL (30-55); Mean Corpuscular Hemoglobin 30.2 pg (27-33); Mean Corpuscular Volume 93.7 fl (85-98); Mean Platelet Volume 9.7 fL (7.4-10.4); Monocytes # 0.8 10^3/uL (0.2-0.9); Monocytes % 7.6 %; Neutrophils # 9.04 10^3/uL (1.8-7.7); Neutrophils % 81.8 %; Nucleated Red Blood Cells % 0 %; Platelet Count 287 10^3/cmm (157-399); Red Blood Count 2.52 10^6/uL (3.85-5.65); Red Cell Distribution Width 14.1 % (12.1-15.1); White Blood Count 11.04 10^3/uL (3.29-11.43)
[2024-05-19 12:58] LABS: Alanine Aminotransferase 6 U/L (0-33); Albumin Level 3.4 g/dL (3.5-5.2); Alkaline Phosphatase 70 U/L (35-105); Anion Gap 16.5 (5-19); Aspartate Amino Transferase 9 U/L (0-32); Blood Urea Nitrogen 35 mg/dL (8-23); Calcium 9.1 mg/dL (8.5-10.5); Carbon Dioxide 21 mmol/L (22-29); Chloride 105 mmol/L (98-107); Glucose 98 mg/dL (65-115); Osmolality Calculated 294 mOsm/kg (285-295); Potassium 4.5 mmol/L (3.5-5.1); Sodium 138 mmol/L (136-145); Total Bilirubin 0.3 mg/dL (0.15-1.2); Total Protein 7.4 g/dL (6.6-8.7)
[2024-05-19 13:08] LABS: Parathyroid Hormone 124.3 pg/mL (15-65)
== END 2024-05-19 11:56 | disposition home or self-care (01) ==
LOC: LAB 12:03
PROVIDERS: PCP Family Medicine Adult Medicine; Visit Provider Registered Nurse
DX: N18.4 Chronic kidney disease, stage 4 (severe) (principal)
CPT/HCPCS: 36415; 80053; 82310; 83970; 85025

== ENCOUNTER 2024-05-24 11:10 | Outpatient (CLI) | payer MEDICARE, MEDICAID, SELFPAY ==
[2024-05-24 11:39] LABS: Creatinine Urine, Random 35 mg/dL (28-217)
[2024-05-24 11:57] LABS: Microalbum Creatinine Ratio Ur 3371 mg/dL (0-20); Microalbumin Random Urine 118 ug/dL (0-20)
== END 2024-05-24 11:11 | disposition home or self-care (01) ==
LOC: LAB 11:12
PROVIDERS: PCP Family Medicine Adult Medicine; Visit Provider Registered Nurse
DX: Z01.89 Encounter for other specified special examinations (principal)
CPT/HCPCS: 82044

== ENCOUNTER 2024-05-31 15:29 | Outpatient (CLI) | payer MEDICARE, MEDICAID, SELFPAY ==
[2024-05-31 17:02] LABS: Ferritin 144 ng/mL (15-150); Iron 45 ug/dL (37-145); Percent Saturation 19.6 % (20-50); Total Iron Binding Capacity 229 mcg/dl; Unsaturated Iron Binding 184 ug/dL (112-347)
== END 2024-05-31 15:30 | disposition home or self-care (01) ==
LOC: LAB 15:30
PROVIDERS: PCP Family Medicine; Visit Provider Registered Nurse
DX: E61.1 Iron deficiency (principal)
CPT/HCPCS: 36415; 82728; 83540; 83550

== ENCOUNTER 2024-06-02 10:39 | Day surgery (SDC) | payer MEDICARE, MEDICAID, SELFPAY ==
--- NOTE | 2024-06-02 10:11 | ANES.PREANE2 ---
Pre-Anesthetic Assessment Height/Weight: Height 5 ft 1 in Preop Diagnosis: Mitral valve regurgitation Operation Date: 06/02/24 12:00 Proposed Procedures p VELASQUEZ 60846 I05.0(Not Applicable) - Reinaldo Shore MD Was Beta Leidy taken within 24 hours: N/A Was Clonidine taken within 24 hours: N/A Social Tobacco and No alcohol Exam alert, oriented x 3 and clear to auscultation bilaterally ejection flow murmur on auscultation, patient also appears to be in an irregular rhythm. Airway Submandibular: within normal limits Cervical ROM: within normal limits Mallampati: Class II Dentition: false Anesthetic Plan ASA status: 3 Anesthesia: MAC Other: No prior issues with anesthesia NPO since yesterday Recent echo showing EF 55 to 60% with moderate to severe elevated mitral valve gradient patient appears to be in a regular rhythm today. Twelve-lead EKG ordered Hypertension on amlodipine, hydralazine and valsartan GERD on Protonix CKD, creatinine 2.6 Labs 05/19/2024 reviewed and acceptable for procedure Hypothyroidism on Synthroid Plan for MAC anesthetic Medications/Allergies Home Medications Medication Instructions Recorded Confirmed Last Taken Type multivitamin 1 tab PO DAILY@1000 09/05/20 05/30/24 05/29/24 History acetaminophen 500 mg tablet 500 mg PO Q6H PRN Pain 09/17/20 05/30/24 05/29/24 History (Tylenol Extra Strength) aspirin 81 mg tablet,delayed 81 mg PO DAILY@1000 11/01/20 05/30/24 06/01/24 History release AFO #1 ea 02/20/21 05/30/24 Unknown Rx nitroglycerin 0.4 mg sublingual 0.4 mg sublingual Q5M PRN Chest 07/21/22 05/30/24 Unknown Rx tablet Pain #20 tabs alprazolam 0.5 mg tablet 0.5 mg PO DAILY PRN anxiety 07/02/23 05/30/24 05/17/24 Rx attacks 90 days #90 tabs amlodipine 10 mg tablet 10 mg PO DAILY High blood Pressure 09/23/23 05/30/24 06/02/24 Rx #100 tabs aripiprazole 5 mg tablet (Abilify) 7.5 mg (1.5 x 5 mg) PO DAILY 01/24/24 05/30/24 06/01/24 Rx mental health #135 tabs oxybutynin chloride 10 mg 10 mg PO DAILY #100 tabs 02/28/24 05/30/24 06/01/24 Rx tablet,extended release 24 hr cholecalciferol (vitamin D3) 25 25 mcg PO DAILY 04/30/24 05/30/24 05/29/24 History mcg (1,000 unit) tablet (Vitamin D3) duloxetine 20 mg capsule,delayed 40 mg PO DAILY 04/30/24 05/30/24 06/01/24 History release ferrous sulfate 325 mg (65 mg 325 mg PO DAILY 04/30/24 05/30/24 06/01/24 History iron) tablet (Iron (ferrous sulfate)) ipratropium bromide 17 1 puff inhalation QID PRN 04/30/24 05/30/24 05/11/24 History mcg/actuation HFA aerosol inhaler Shortness Of Breath Or Wheezing (Atrovent HFA) levothyroxine 75 mcg tablet 75 mcg PO DAILY 04/30/24 05/30/24 06/02/24 History omega 6-gcm-aku-fish oil 300 1 cap PO DAILY 04/30/24 05/30/24 05/29/24 History mg-1,000 mg capsule (Fish Oil) pantoprazole 40 mg tablet,delayed 40 mg PO BID 04/30/24 05/30/24 06/01/24 History release trazodone 50 mg tablet 50 mg PO BEDTIME 04/30/24 05/30/24 06/01/24 History furosemide 40 mg tablet (Lasix) 40 mg PO DAILY PRN weight gain #14 05/02/24 05/30/24 Unknown Rx tabs carvedilol 25 mg tablet 25 mg PO BID #180 tabs 05/30/24 06/02/24 06/02/24 Rx doxycycline hyclate 100 mg capsule 100 mg PO BID 10 days #20 caps 05/30/24 06/02/24 06/01/24 Rx fluticasone propionate 50 1 spray intranasal BID #16 grams 05/30/24 06/02/24 Unknown Rx mcg/actuation nasal spray,suspension hydralazine 100 mg tablet 100 mg PO TID #270 tabs 05/30/24 06/02/24 06/02/24 Rx valsartan 160 mg tablet 160 mg PO DAILY #180 tabs 05/30/24 06/02/24 06/01/24 Rx rosuvastatin 5 mg tablet 5 mg PO DAILY #100 tabs 06/01/24 06/02/24 Unknown Rx Allergies Allergy/AdvReac Type Severity Reaction Status Date / Time diphenhydramine Allergy Severe ALGY-Difficulty Verified 05/30/24 08:47 Breathing famotidine [From Pepcid] Allergy Severe ALGY-Difficulty Verified 05/30/24 08:47 Breathing omeprazole [From Prilosec] Allergy Severe ALGY-Difficulty Verified 05/30/24 08:47 Breathing ranitidine Allergy Severe ALGY-Difficulty Verified 05/30/24 08:47 Breathing Sulfa (Sulfonamide Allergy Intermediate Hives Verified 05/30/24 08:47 Antibiotics) Amoxicillin Allergy Mild Rash Uncoded 05/30/24 08:47 tramadol AdvReac Mild Mental Uncoded 05/30/24 08:47 status changes [facility] Anesthesia Medical History History of lacunar cerebrovascular accident (CVA) on CT Mitral stenosis Secondary hyperparathyroidism Aortic stenosis Anxiety and depression Panic attacks & Long hx of depression, on Cymbalta > 10 years. CKD (chronic kidney disease) stage 4, GFR 15-29 ml/min seeing admission liaison Morbid obesity with BMI of 40.0-44.9, adult JASON on CPAP Constipation by delayed colonic transit Osteoarthritis of both knees Ankle and foot deformity, acquired Anemia in chronic kidney disease (CKD) iron def; PAD (peripheral artery disease) Mixed incontinence AAA (abdominal aortic aneurysm) GERD (gastroesophageal reflux disease) COPD (chronic obstructive pulmonary disease) CAD (coronary artery disease) HTN (hypertension) Hx of myocardial infarction Hyperlipidemia Hypothyroidism Fibromyalgia Rheumatoid arthritis Surgical History History of arthroscopy of right shoulder Hx of hysterectomy ovaries remaining; done for female problems, no cancer History of bilateral cataract extraction Hx of cholecystectomy History of hip replacement Right Family History Father , AT 40 Cancer Mother , AT AGE 76 Cancer Heart disease Other CAD (coronary artery disease) Diabetes Social History Smoking and tobacco/nicotine status: current every day tobacco/nicotine user e-cigarettes E-Cigarette Details: vaporizer device Alcohol intake: current Alcohol intake frequency: holidays/special occasions only Substance/Drug Use: never Household members: other Details: lives with daughter communications department head--and communications department head next to 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
[2024-06-02 10:58] VITALS: BP 179/64; PULSE 64; RESP 20; TEMP 36.6; O2SAT 92; BMI 40.8
[2024-06-02] MEDS: sodium chloride 0.9% 500 ML 15 ML IV (11:26)
--- NOTE | 2024-06-02 11:49 | USCV_ITS ---
Mahnaz Magallanes Age: 78 Gender: F : 1945 Exam Date: 06/02/2024 12:08 Ordering Phys: Shan Zamarripa M.D ([email or web address]) Technologist: Francesco Whitaker Exam Location: [facility] [place] Indication: Mitral stenosis BP: 151 / 67 HR: 61 Rhythm: Sinus Technical Quality: Adequate MEASUREMENTS (Male / Female) Normal Values DOPPLER MV Peak Velocity 136.0 cm/s Medications Patient given IV sedation by anesthesia service, for details please refer to the anesthesia report. Complications None. Proc. Components The patient was brought to the VELASQUEZ examination room in a fasting state after obtaining an informed consent. VELASQUEZ was performed at multiple levels. The patient tolerated the procedure well and there were no complications. FINDINGS Left Ventricle Normal left ventricular cavity size. Normal left ventricular wall thickness. Normal left ventricular systolic function. Left ventricular ejection fraction is estimated at 55 %. Right Ventricle The right ventricle is normal in size and function. Right Atrium The right atrium is normal in size. Left Atrium Moderately increased left atrial size. LA Appendage No thrombus visualized in the left atrial appendage. IA Septum No [id number] shunt seen at the atrial level. No right-to- left shunt seen at the atrial level with contrast. Mitral Valve Severe mitral annular calcification. Mild mitral valve stenosis. Mitral valve mean gradient is 3.1 mmHg. Mild mitral valve regurgitation. Aortic Valve Severe aortic valve calcification. Moderate aortic valve stenosis, EM 1.2 cm squared.by planimetry trace aortic valve regurgitation. Tricuspid Valve Trace tricuspid valve regurgitation. Pulmonic Valve Structurally normal pulmonic valve without significant stenosis. There is no pulmonic regurgitation. Pericardium Normal pericardium without effusion. Aorta Normal ascending aorta dimension. CONCLUSIONS Normal left ventricular cavity size. Normal left ventricular wall thickness. Normal left ventricular systolic function. Left ventricular ejection fraction is estimated at 55 %. Moderately increased left atrial size. No thrombus visualized in the left atrial appendage. Severe aortic valve calcification. Moderate aortic valve stenosis, EM 1.2 cm squared.by planimetry trace aortic valve regurgitation. Severe mitral annular calcification. Mild mitral valve stenosis. Mitral valve mean gradient is 3.1 mmHg. Mild mitral valve regurgitation. No kfgx-[id number]-ibhmu shunt seen at the atrial level. No right-to- left shunt seen at the atrial level with contrast. There is no pericardial effusion. Reinaldo Shore MD (Electronically Signed) Final Date: 03 June 2024 18:11 S
--- NOTE | 2024-06-02 11:57 | ECG_ITS ---
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: : 1945 Requested By: Wilmer Pruett Order Number: [id number] Reading MD: JUSTYNA THORPE Measurements Intervals [place] Rate: 80 P: 43 WA: 222 QRS: -12 QRSD: 85 T: 83 QT: 387 QTc: 448 Interpretive Statements SINUS RHYTHM WITH FIRST DEGREE AV BLOCK WITH FREQUENT SUPRAVENTRICULAR PREMATURE COMPLEXES NONSPECIFIC T-WAVE ABNORMALITY Compared to ECG 05/02/2024 09:54:48 First degree AV block now present T-wave abnormality now present Myocardial infarct finding no longer present Electronically Signed On 06-02-2024 23:32:24 HEALTH SYSTEMS ANALYST by JUSTYNA THORPE [email or web address]
--- NOTE | 2024-06-02 12:36 | W.PM.OPSUD ---
Surgery/Procedure H&P Update DATE OF PROCEDURE: June 02, 2024 DATE H&P PERFORMED: 05/16/24 H&P UPDATE INFORMATION: I have reviewed H&P completed within last 30 days, I have examined patient prior to procedure and No changes to prior documentation PREOP DIAGNOSIS: Mitral valve Stenosis PRIMARY INDICATION FOR PROCEDURE: Mitral valve stenosis PLANNED PROCEDURE: Operation Date: 06/02/24 12:00 Proposed Procedures p VELASQUEZ 55289 I05.0(Not Applicable) - Reinaldo Shore MD Please see anesthesia PHYSICAL EXAM: alert, clear to auscultation bilaterally, regular rate & rhythm and operative site marked AIRWAY EVAL/ANESTHESIA PLAN: ASA III, Risks, benefits & alternatives of sedation and/or procedure discussed and Patient agrees to continue as planned
[2024-06-02 13:01] VITALS: BP 129/56; PULSE 80; RESP 14; TEMP 36.4; O2SAT 98
[2024-06-02 13:10] VITALS: BP 117/52; PULSE 95; RESP 16; O2SAT 92
--- NOTE | 2024-06-02 13:30 | ANE.PACU2 ---
Inpatient post-anesthesia follow up: Airway intact: Yes Vital signs: Temperature 97.5 F Pulse Rate 95 Respiratory Rate 16 Blood Pressure 117/52 Pulse Oximetry 92 Oxygen Delivery Me thod Room Air Oxygen Flow Rate 6 Fraction of Inspir ed Oxygen Hydration adequate: Yes Nausea and vomiting: No Pain level: 1 Mental status: Baseline
== END 2024-06-02 13:31 | disposition home or self-care (01) ==
PROVIDERS: PCP Family Medicine; Visit Provider Internal Medicine Cardiovascular Disease
PROC: (CPT 93312; principal; 2024-06-02 12:00)
DX: I05.0 Rheumatic mitral stenosis (principal); K21.9 Gastro-esophageal reflux disease without esophagitis; E03.9 Hypothyroidism, unspecified; I12.9 Hypertensive chronic kidney disease with stage 1 through stage 4 chronic kidney disease, or unspecified chronic kidney disease; N18.4 Chronic kidney disease, stage 4 (severe); E66.01 Morbid (severe) obesity due to excess calories; Z68.41 Body mass index [BMI] 40.0-44.9, adult; G47.33 Obstructive sleep apnea (adult) (pediatric); Z99.89 Dependence on other enabling machines and devices; I25.10 Atherosclerotic heart disease of native coronary artery without angina pectoris; I25.2 Old myocardial infarction; E78.5 Hyperlipidemia, unspecified
CPT/HCPCS: 93005; 93312; 93320; 93325; J2704; J7040

== ENCOUNTER → 2024-06-08 14:57 | Outpatient (BNVA) | payer MEDICARE, MEDICAID, SELFPAY | PROVIDERS: PCP Family Medicine; Visit Provider Internal Medicine Cardiovascular Disease | DX: I05.0 Rheumatic mitral stenosis (principal); I73.9 Peripheral vascular disease, unspecified; I25.10 Atherosclerotic heart disease of native coronary artery without angina pectoris; F17.290 Nicotine dependence, other tobacco product, uncomplicated; I12.0 Hypertensive chronic kidney disease with stage 5 chronic kidney disease or end stage renal disease; N18.9 Chronic kidney disease, unspecified | CPT/HCPCS: 99214 ==

== ENCOUNTER 2024-06-23 07:13 | Outpatient (CLI) | payer MEDICARE, MEDICAID, SELFPAY ==
--- NOTE | 2024-06-23 | ECG_ITS ---
[facility] [facility] 2024[facility]23 Pat Name: Mahnaz Magallanes Department: Room: Gender: Female Programming Manager: : 1945 Requested By: Reinaldo Shore Order Number: [id number] Reading MD: REINALDO SHORE Interpretive Statements Lung unchanged pre/post procedure; Intraprocedure shortess of breath; Symptoms resoled by discharge NOTE: Please note that this is the electrocardiogram portion of the Lexiscan/Sestamibi stress test. The perfusion scan will be documented separately. DATA: Baseline heart rate was 101 beats per minute. Baseline blood pressure was 158/79 millimeters of mercury. Target heart rate was 144 Maximum heart rate achieved was 112. which was 77% of the predicted target heart rate. Maximum blood pressure was 156/79 mmHg . The reason for ending the test was completion of the protocol. The patient did not experience any symptoms. ELECTROCARDIOGRAM: BASELINE: Sinus tachycardia. Normal axis. Otherwise, no ST-T changes suggestive of ischemia noted. No arrhythmia noted. EXERCISE: After Lexiscan injection, no ST-T changes suggestive of ischemic noted. No arrhythmia noted. CONCLUSION: Please note due to baseline abnormality of the EKG specificity and sensitivity of the EKG portion of LexiScan MIBI stress test will be low 1. EKG not suggestive of ischemia 2. Lexiscan injection unremarkable. 3. Perfusion scan will be documented separately. Electronically Signed On 06-24-2024 20:34:50 ASSET PROTECTION AGENT by REINALDO SHORE [id number]
[2024-06-23 07:19] VITALS: BMI 38.9
--- NOTE | 2024-06-23 07:31 | NMCV_ITS ---
NM jose alberto perf SPECT r/s* [id number] Sona Mahnaz Age: 78 Gender: F : 1945 Exam Date: 06/23/2024 08:36 Ordering Phys: Reinaldo Shore MD ([email or web address]) Technologist: TG Baxter Exam Location: [facility] Indications: cp STRESS TEST Please see separate stress test report in [facility] for full findings IMAGE PROTOCOL Rest/Stress 1 Lexiscan Day Radiopharmaceutical Dose (mCi) Administration Site Administered by Rest: Tc-99m 10.8 IV TG Baxter Sestamibi Stress:Tc-99m 32.3 IV Latisha Lozoya, GEOPHYSICAL SUPPORT SPECIALIST Sestamibi Rest: 23-Jun-2024 60 Discovery 630 Stress: 23-Jun-2024 30 Discovery 630 0.4mg Lexiscan. Supine position only as patient was unable to lay prone. SPECT RESULTS Technical Quality: Good Raw Data Analysis: Normal Image Corrections: No attenuation or motion correction applied Summed Stress Score: 0 Summed Rest Score: 1 Summed Difference Score: 0 PERFUSION FINDINGS SPECT images demonstrate homogeneous tracer distribution throughout the myocardium. FUNCTIONAL RESULTS (calculated via Gated SPECT) Stress Image LV EF (%): 69 Stress EDV (mL):78 TID: 1 Stress ESV (mL):24 FUNCTIONAL FINDINGS: There is normal left ventricular systolic function. IMPRESSIONS 1. Normal myocardial perfusion imaging with no evidence of ischemia 2. LV systolic function is normal Shan Zamarripa MD (Electronically Signed) Final Date: 23 June 2024 15:57 S
[2024-06-23] MEDS: regadenoson 0.4 Mg/5 ml Syringe IVP (09:16)
[2024-06-23 09:26] VITALS: BP 128/68; PULSE 102
== END 2024-06-23 07:14 | disposition home or self-care (01) ==
LOC: CDL 07:14
PROVIDERS: PCP Family Medicine; Visit Provider Internal Medicine Cardiovascular Disease
DX: R07.9 Chest pain, unspecified (principal)
CPT/HCPCS: 36415; 78452; 93017; 96374; A9500; J2785

== ENCOUNTER 2024-07-06 15:34 | Emergency (ER) | payer MEDICARE, MEDICAID, SELFPAY ==
--- NOTE | 2024-07-06 15:35 | XR_ITS ---
WS: [id number] Exam: XR chest 1V portable [id number] Date/Time of Exam: 07/06/2024 3:51 PM Reason For Exam: sob Comparison 04/30/2024. Lungs are fully inflated and clear. Mild cardiac enlargement. No pleural effusions. The mediastinum is normal in contour. Bony structures are intact. XR/XR chest 1V portable [id number] IMPRESSION: 1. No acute cardiopulmonary finding. Mild cardiomegaly.
--- NOTE | 2024-07-06 15:35 | ECG_ITS ---
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 Measurements Intervals [place] Rate: 80 P: 30 MD: 200 QRS: -5 QRSD: 94 T: 77 QT: 369 QTc: 428 Interpretive Statements SINUS RHYTHM WITH FREQUENT SUPRAVENTRICULAR PREMATURE COMPLEXES POSSIBLE ANTERIOR MYOCARDIAL INFARCTION , OF INDETERMINATE AGE [30 ms Q WAVE IN V3/V4, OR R < 0.2 mV IN V4] Compared to ECG 06/02/2024 11:57:06 Myocardial infarct finding now present First degree AV block no longer present T-wave abnormality no longer present Electronically Signed On 07-06-2024 17:49:11 RECREATION WORKER by Shan Zamarripa M.D. [id number] [id number]
[2024-07-06 15:42] VITALS: BP 118/75; PULSE 72; RESP 20; TEMP 36.6; O2SAT 92; BMI 37.8
[2024-07-06 17:23] LABS: Basophils # 0.1 10^3/uL (0.0-0.1); Basophils % 0.7 %; Eosinophils # 0.3 10^3/uL (0.0-0.8); Eosinophils % 3.3 %; Hematocrit 24.8 % (36-47); Lymphocytes # 0.8 10^3/uL (0.8-4.8); Lymphocytes % 10.8 %; Mean Corpuscular Hemoglobin 30.2 pg (27-33); Mean Corpuscular Volume 97.3 fl (85-98); Mean Platelet Volume 10.8 fL (7.4-10.4); Monocytes # 0.7 10^3/uL (0.2-0.9); Monocytes % 8.7 %; Neutrophils % 76.2 %; Nucleated Red Blood Cells % 0 %; Platelet Count 268 10^3/cmm (157-399); Red Blood Count 2.55 10^6/uL (3.85-5.65); Red Cell Distribution Width 13.4 % (12.1-15.1)
[2024-07-06 17:45] LABS: Alanine Aminotransferase < 5 U/L (0-33); Albumin Level 3.6 g/dL (3.5-5.2); Alkaline Phosphatase 67 U/L (35-105); Aspartate Amino Transferase 7 U/L (0-32); Blood Urea Nitrogen 33 mg/dL (8-23); Calcium 9.2 mg/dL (8.5-10.5); Carbon Dioxide 21 mmol/L (22-29); Chloride 107 mmol/L (98-107); Creatinine Clr Calc Pharmacy 17.6168; Globulin 3.8 g/dL (1.3-4.6); Glucose 110 mg/dL (65-115); NT Pro B Type Natriuretic Pept 8075 pg/mL (0-450); Osmolality Calculated 294 mOsm/kg (285-295); Sodium 138 mmol/L (136-145); Total Bilirubin 0.2 mg/dL (0.15-1.2); Total Protein 7.4 g/dL (6.6-8.7)
--- NOTE | 2024-07-06 18:50 | W.ED.SOB ---
HPI - SOB/Dyspnea General: Chief Complaint: Shortness of Breath/Dyspnea Stated Complaint: sob Time Seen by Provider: 07/06/24 18:23 History of Present Illness: HPI Narrative: Patient resents to the ER with complaints of shortness of breath the last couple weeks. She has been using her nebulizer has not been helping. She said she was sick a couple weeks ago but had to wait better and then went downhill. Patient's family had respiratory symptoms. About 2 weeks ago but they are all improved now. Patient does have a history of COPD, patient does not use oxygen at home. Patient has intermittent Lasix to use for swelling, she weighs herself daily and her weight has not increased. She does have known anemia with a hemoglobin drawn in the sevens as well as chronic kidney disease with creatinines running in the high twos. Related Data Home Medications ?Medication ?Instructions ?Recorded ?Confirmed multivitamin 1 tab PO DAILY@1000 09/05/20 05/30/24 acetaminophen 500 mg tablet 500 mg PO Q6H PRN Pain 09/17/20 05/30/24 (Tylenol Extra Strength) aspirin 81 mg tablet,delayed 81 mg PO DAILY@1000 11/01/20 05/30/24 release cholecalciferol (vitamin D3) 25 25 mcg PO DAILY 04/30/24 05/30/24 mcg (1,000 unit) tablet (Vitamin D3) duloxetine 20 mg capsule,delayed 40 mg PO DAILY 04/30/24 05/30/24 release ferrous sulfate 325 mg (65 mg 325 mg PO DAILY 04/30/24 05/30/24 iron) tablet (Iron (ferrous sulfate)) levothyroxine 75 mcg tablet 75 mcg PO DAILY 04/30/24 05/30/24 omega 3-tbg-tfa-fish oil 300 1 cap PO DAILY 04/30/24 05/30/24 mg-1,000 mg capsule (Fish Oil) pantoprazole 40 mg tablet,delayed 40 mg PO BID 04/30/24 05/30/24 release Previous Rx's ?Medication ?Instructions ?Recorded AFO #1 ea 02/20/21 nitroglycerin 0.4 mg sublingual 0.4 mg sublingual Q5M PRN Chest 07/21/22 tablet Pain #20 tabs alprazolam 0.5 mg tablet 0.5 mg PO DAILY PRN anxiety 07/02/23 attacks 90 days #90 tabs amlodipine 10 mg tablet 10 mg PO DAILY High blood Pressure 09/23/23 #100 tabs aripiprazole 5 mg tablet (Abilify) 7.5 mg (1.5 x 5 mg) PO DAILY 01/24/24 mental health #135 tabs oxybutynin chloride 10 mg 10 mg PO DAILY #100 tabs 02/28/24 tablet,extended release 24 hr furosemide 40 mg tablet (Lasix) 40 mg PO DAILY PRN weight gain #14 05/02/24 tabs carvedilol 25 mg tablet 25 mg PO BID #180 tabs 05/30/24 doxycycline hyclate 100 mg capsule 100 mg PO BID 10 days #20 caps 05/30/24 fluticasone propionate 50 1 spray intranasal BID #16 grams 05/30/24 mcg/actuation nasal spray,suspension hydralazine 100 mg tablet 100 mg PO TID #270 tabs 05/30/24 rosuvastatin 5 mg tablet 5 mg PO DAILY #100 tabs 06/01/24 valsartan 160 mg tablet 160 mg PO BID #240 tabs 06/08/24 ipratropium bromide 17 1 puff inhalation QID PRN 06/15/24 mcg/actuation HFA aerosol inhaler Shortness Of Breath Or Wheezing (Atrovent HFA) #51 grams trazodone 50 mg tablet See Rx Instructions .Route 06/22/24 .COMPLEX #90 tabs prednisone 50 mg tablet 50 mg PO DAILY #5 tabs 07/06/24 Allergies Allergy/AdvReac Type Severity Reaction Status Date / Time diphenhydramine Allergy Severe ALGY-Difficulty Verified 07/06/24 15:47 Breathing famotidine (From Pepcid) Allergy Severe ALGY-Difficulty Verified 07/06/24 15:47 Breathing omeprazole (From Prilosec) Allergy Severe ALGY-Difficulty Verified 07/06/24 15:47 Breathing ranitidine Allergy Severe ALGY-Difficulty Verified 07/06/24 15:47 Breathing Sulfa (Sulfonamide Allergy Intermediate Hives Verified 07/06/24 15:47 Antibiotics) Amoxicillin Allergy Mild Rash Uncoded 07/06/24 15:47 tramadol AdvReac Mild Mental Uncoded 07/06/24 15:47 status changes Review of Systems General: Reports: 10 or more systems reviewed and unremarkable except in HPI and below PFSH ED [facility]: Medical History History of lacunar cerebrovascular accident (CVA) on CT Mitral stenosis Secondary hyperparathyroidism Aortic stenosis Anxiety and depression Panic attacks & Long hx of depression, on Cymbalta > 10 years. CKD (chronic kidney disease) stage 4, GFR 15-29 ml/min seeing retail clerk Morbid obesity with BMI of 40.0-44.9, adult JASON on CPAP Constipation by delayed colonic transit Osteoarthritis of both knees Ankle and foot deformity, acquired Anemia in chronic kidney disease (CKD) iron def; PAD (peripheral artery disease) Mixed incontinence AAA (abdominal aortic aneurysm) GERD (gastroesophageal reflux disease) COPD (chronic obstructive pulmonary disease) CAD (coronary artery disease) HTN (hypertension) Hx of myocardial infarction Hyperlipidemia Hypothyroidism Fibromyalgia Rheumatoid arthritis Surgical History History of arthroscopy of right shoulder Hx of hysterectomy ovaries remaining; done for female problems, no cancer History of bilateral cataract extraction Hx of cholecystectomy History of hip replacement Right Family History Father , AT 40 Cancer Mother , AT AGE 76 Cancer Heart disease Other CAD (coronary artery disease) Diabetes Social History Smoking and tobacco/nicotine status: current every day tobacco/nicotine user e-cigarettes E-Cigarette Details: vaporizer device Alcohol intake: current Alcohol intake frequency: holidays/special occasions only Substance/Drug Use: never Household members: other Details: lives with daughter religion department chair--and religion department chair next to 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 Marital status: / Number of children: 3 Highest education level completed: Associate Degree: Occupational, Technical, Vocational Program Education level details: CLINICAL PROGRAM COORDINATOR Current occupational status: retired and disabled Physical Exam Const: COMMON NORMALS: no acute distress, average body habitus, patient oriented x3, no limitations, healthy appearing, alert and well nourished HENMT: COMMON NORMALS: normocephalic, atraumatic, hearing grossly normal bilaterally, external ears normal, Normal external nose present, moist oral mucous membranes and oropharynx normal HEAD & SCALP: normocephalic and atraumatic NOSE: Normal external nose present EXTERNAL EAR: Yes external ears normal Neck/C-Spine: COMMON NORMALS: no JVD Chest: COMMONS NORMALS: normal inspection of the chest and normal palpation of entire chest wall Resp: COMMON NORMALS: normal respiratory effort, No retractions, No use of accessory muscles and clear to auscultation bilaterally AUSCULTATION: clear to auscultation bilaterally Cardio: COMMON NORMALS: no JVD, regular rate, regular rhythm, S1 normal heart sound present, S2 normal heart sound present, No gallops present (Cardio) and No clicks present (Cardio); negative for No murmurs present (Cardio) (2/6 to 3/6 systolic ejection murmur) RATE: regular rate RHYTHM: regular rhythm HEART SOUNDS: S1 normal heart sound present and S2 normal heart sound present GI: COMMON NORMALS: Normal to inspection, nondistended, normoactive bowel sounds present, Soft to palpation, non-tender, No hepatosplenomegaly present and no masses PALPATION: Yes Soft to palpation and Yes No hepatosplenomegaly present Neuro: COMMON NORMALS: patient oriented x3 SENSORIUM/ORIENTATION: Yes alert Course Vital Signs: Vital signs: Vital Signs Temperature 97.9 F 07/06/24 15:42 Pulse Rate 92 07/06/24 19:46 Respiratory Rate 20 H 07/06/24 15:42 Blood Pressure 162/81 07/06/24 19:46 Pulse Oximetry 94 07/06/24 20:17 Oxygen Delivery Me thod Room Air 07/06/24 19:46 MDM - SOB/Dyspnea Medical Decision Making Lab work was reviewed, patient chronically anemic with a hemoglobin of 7.7 hematocrit 24.8, chronic kidney disease with BUN 33 creatinine 2.9, TSH 2.75, BNP 8075, chest x-ray negative, influenza AB RSV and COVID-negative patient passed her home oxygen study test and therefore does not qualify for home oxygen. These results was discussed with the patient and her daughter. We feel as a commendation of factors due to the anemia the chronic kidney disease a COPD. We will place patient on a round of steroids. Discharged home. Patient should follow-up with her livestock sales representative and retail clerk see about iron replacement and possibly EPO Medical Records I reviewed the patient's medical records. Lab Data I reviewed the patient's lab results. 07/06/24 17:01 07/06/24 17:01 Labs/Radiology: Radiology Impressions Chest X-Ray 07/06/24 15:35 IMPRESSION: 1. No acute cardiopulmonary finding. Mild cardiomegaly. Laboratory Results WBC 7.60 10^3/uL (3.29-11.43) 07/06/24 17:01 RBC 2.55 10^6/uL (3.85-5.65) L 07/06/24 17:01 Hgb 7.70 g/dL (11.27-16.99) L 07/06/24 17:01 Hct 24.8 % (36-47) L 07/06/24 17:01 MCV 97.3 fl (85-98) 07/06/24 17:01 MCH 30.2 pg (27-33) 07/06/24 17:01 MCHC 31.0 g/dL (30-55) 07/06/24 17:01 RDW 13.4 % (12.1-15.1) 07/06/24 17:01 Plt Count 268 10^3/cmm (157-399) 07/06/24 17:01 MPV 10.8 fL (7.4-10.4) H 07/06/24 17:01 Neut % (Auto) 76.2 % 07/06/24 17:01 Lymph % (Auto) 10.8 % 07/06/24 17:01 [place] % (Auto) 8.7 % 07/06/24 17:01 Eos % (Auto) 3.3 % 07/06/24 17:01 Baso % (Auto) 0.7 % 07/06/24 17:01 Neut # (Auto) 5.80 10^3/uL (1.8-7.7) 07/06/24 17:01 Lymph # (Auto) 0.8 10^3/uL (0.8-4.8) 07/06/24 17:01 [place] # (Auto) 0.7 10^3/uL (0.2-0.9) 07/06/24 17:01 Eos # (Auto) 0.3 10^3/uL (0.0-0.8) 07/06/24 17:01 Baso # (Auto) 0.1 10^3/uL (0.0-0.1) 07/06/24 17:01 Nucleated RBC % (auto) 0 % 07/06/24 17:01 Nucleated RBCs # 0.0 /100WBC 07/06/24 17:01 Specimen Type Arterial 07/06/24 18:51 Sample Site Radial, right 07/06/24 18:51 ABG pH 7.35 (7.35-7.45) 07/06/24 18:51 ABG pCO2 37.8 mmHg (35-45) 07/06/24 18:51 ABG pO2 67.9 mmHg (80.0-100.0) L 07/06/24 18:51 ABG PO2/FiO2 Ratio 323 07/06/24 18:51 ABG HCO3 20.8 mmol/L (22-26) L 07/06/24 18:51 ABG O2 Saturation 93.3 07/06/24 18:51 ABG Base Excess -4.5 mmol/L (-2.0-2.0) L 07/06/24 18:51 Herrera Test Pos 07/06/24 18:51 A-a O2 Gradient 4.9 mmHg (5-10) L 07/06/24 18:51 Hematocrit 23.8 % (37-47) L 07/06/24 18:51 Hgb O2 Saturation 90.5 % (95-100) L 07/06/24 18:51 Carboxyhemoglobin 1.5 %THgb (0.4-20.1) 07/06/24 18:51 Methemoglobin 1.4 % (0.4-1.5) 07/06/24 18:51 Total Hemoglobin 7.8 g/dL (12-16) L 07/06/24 18:51 Sodium 140.0 mmol/L (131-143) 07/06/24 18:51 Potassium 4.4 mmol/L (3.5-5.0) 07/06/24 18:51 Glucose 110.0 mg/dL (70-115) 07/06/24 18:51 Ionized Calcium 1.2 mmol/L (1.1-1.4) 07/06/24 18:51 O2 Delivery Device Room air 07/06/24 18:51 FiO2 21.0 % 07/06/24 18:51 Back Hoe Machine Operator ID [email or web address] 07/06/24 18:51 Sodium 138 mmol/L (136-145) 07/06/24 17:01 Potassium 5.0 mmol/L (3.5-5.1) 07/06/24 17:01 Chloride 107 mmol/L (98-107) 07/06/24 17:01 Carbon Dioxide 21 mmol/L (22-29) L 07/06/24 17:01 Anion Gap 15.0 (5-19) 07/06/24 17:01 BUN 33 mg/dL (8-23) H 07/06/24 17:01 Creatinine 2.9 mg/dL (0.5-0.9) H 07/06/24 17:01 GFR Calculation Not Reportable 07/06/24 17:01 Glucose 110 mg/dL (65-115) 07/06/24 17:01 Calculated Osmolality 294 mOsm/kg (285-295) 07/06/24 17:01 Calcium 9.2 mg/dL (8.5-10.5) 07/06/24 17:01 Total Bilirubin 0.2 mg/dL (0.15-1.2) 07/06/24 17:01 AST 7 U/L (0-32) 07/06/24 17:01 ALT < 5 U/L (0-33) 07/06/24 17:01 Alkaline Phosphatase 67 U/L (35-105) 07/06/24 17:01 NT-Pro-B Natriuret Pep 8075 pg/mL (0-450) H 07/06/24 17:01 Total Protein 7.4 g/dL (6.6-8.7) 07/06/24 17:01 Albumin 3.6 g/dL (3.5-5.2) 07/06/24 17:01 Globulin 3.8 g/dL (1.3-4.6) 07/06/24 17:01 TSH 2.75 uIU/mL (0.27-4.20) 07/06/24 17:01 Influenza A (PCR) Negative (Negative) 07/06/24 19:10 Influenza Type B (PCR) Negative (Negative) 07/06/24 19:10 RSV (PCR) Negative (Negative) 07/06/24 19:10 SARS-CoV-2 (PCR) Negative (Negative) 07/06/24 19:10 All radiology interpretation(s) finalized by discharge Discharge Plan Discharge Patient Disposition: Home Clinical Impression: Acute exacerbation of chronic obstructive pulmonary disease Anemia due to chronic kidney disease Qualifiers: Chronic kidney disease stage: unspecified stage Qualified Code(s): N18.9 - Chronic kidney disease, unspecified Condition: Stable Prescriptions: New prednisone 50 mg tablet 50 mg PO DAILY Qty: 5 0RF No Action multivitamin Tablet 1 tab PO DAILY@1000 acetaminophen [Tylenol Extra Strength] 500 mg tablet 500 mg PO Q6H PRN (Reason: Pain) (DME) AFO See Rx Instructions .Route .MEDSUPPLY Qty: 1 0RF Rx Instructions: As directed LAURA&O alprazolam 0.5 mg tablet 0.5 mg PO DAILY PRN (Reason: anxiety attacks) 90 Days Qty: 90 2RF hydralazine 100 mg tablet 100 mg PO TID Qty: 270 3RF doxycycline hyclate 100 mg capsule 100 mg PO BID 10 Days Qty: 20 0RF fluticasone propionate 50 mcg/actuation spray,suspension 1 spray intranasal BID Qty: 16 0RF Rx Instructions: administer into each nostril carvedilol 25 mg tablet 25 mg PO BID Qty: 180 3RF Rx Instructions: must administer with a meal/food nitroglycerin 0.4 mg tablet, sublingual 0.4 mg SUBLINGUAL Q5M PRN (Reason: Chest Pain) Qty: 20 3RF Rx Instructions: do not exceed 3 doses per episode valsartan 160 mg tablet 160 mg PO BID Qty: 240 3RF amlodipine 10 mg tablet 10 mg PO DAILY Qty: 100 3RF aripiprazole [Abilify] 5 mg tablet 7.5 mg PO DAILY Qty: 135 1RF oxybutynin chloride 10 mg tablet extended release 24hr 10 mg PO DAILY Qty: 100 1RF rosuvastatin 5 mg tablet 5 mg PO DAILY Qty: 100 3RF Atrovent HFA 17 mcg/actuation HFA aerosol inhaler 1 puff inhalation QID PRN (Reason: Shortness Of Breath Or Wheezing) Qty: 51 1RF trazodone 50 mg tablet See Rx Instructions .ROUTE .COMPLEX Qty: 90 3RF Dose Instruction: TAKE 1 TABLET BY MOUTH AT BEDTIME Rx Instructions: TAKE 1 TABLET BY MOUTH AT BEDTIME aspirin 81 mg tablet,delayed release (DR/EC) 81 mg PO DAILY@1000 ferrous sulfate [Iron (ferrous sulfate)] 325 mg (65 mg iron) Tablet 325 mg PO DAILY cholecalciferol (vitamin D3) [Vitamin D3] 25 mcg (1,000 unit) Tablet 25 mcg PO DAILY omega 9-rkb-vho-fish oil [Fish Oil] 300-1,000 mg Capsule 1 cap PO DAILY levothyroxine 75 mcg tablet 75 mcg PO DAILY pantoprazole 40 mg tablet,delayed release (DR/EC) 40 mg PO BID duloxetine 20 mg capsule,delayed release(DR/EC) 40 mg PO DAILY furosemide [Lasix] 40 mg tablet 40 mg PO DAILY PRN (Reason: weight gain) Qty: 14 0RF Discharge Orders: Discharge ED (Routine); Ordered 07/06/24 Ordered By: Phil Tripathi Referrals: Laura Lee MD [Primary Care Provider] - 1 week Patient Instructions: COPD, Chronic Kidney Disease (ED), Anemia (ED) Activity Restrictions/Additional Instructions: Activity restrictions/additional instructions: Thank you for choosing [facility] for your healthcare needs today. Please realize that you were seen in the emergency department and that we are providing you with an emergency medical screening exam and this may not be a complete and all exclusive of all testing and/or medical workup we may need to determine your element or severity of your illness. It is very important that you follow-up as instructed with your primary care provider or specialist for the additional evaluation and to discuss your medical treatment plan. You may return to the emergency department should you have concerns or if your condition changes or worsens in any way. Print Language: Arabic Coding Level of Care Code ED Accounting Clerk for Yuli Murray
[2024-07-06 19:02] LABS: ABG PCO2 37.8 mmHg (35-45); ABG PH Result 7.35 (7.35-7.45); Alveolar-Arterial Oxygen Gradi 4.9 mmHg (5-10); Arterial Blood Gas Hematocrit 23.8 % (37-47); Base Excess ABG -4.5 mmol/L (-2.0-2.0); Blood Gas Allen Test Pos; Blood Gas Operator Identificat gerca; Blood Gas Sample Site Radial, right; Blood Gas Sample Type Arterial; Carboxyhemoglobin 1.5 %THgb (0.4-20.1); HCO3 ABG 20.8 mmol/L (22-26); HGB O2 Sat 90.5 % (95-100); Ionized Calcium Level - ABG 1.2 mmol/L (1.1-1.4); Methemoglobin 1.4 % (0.4-1.5); Oxygen Device ROOM AIR; Oxygen Saturation ABG 93.3; PO2 ABG 67.9 mmHg (80.0-100.0); PO2 FiO2 Ratio Arterial Blood 323; Potassium Level - ABG 4.4 mmol/L (3.5-5.0); Total Hemoglobin 7.8 g/dL (12-16)
[2024-07-06 19:16] LABS: Thyroid Stimulating Hormone 2.75 uIU/mL (0.27-4.20)
[2024-07-06 19:46] VITALS: BP 162/81; PULSE 92; O2SAT 95
[2024-07-06 20:17] VITALS: O2SAT 21; O2SAT 94
[2024-07-06 20:22] LABS: Influenza A NEGATIVE (Negative); Influenza B NEGATIVE (Negative); Respiratory Syncytial Virus Ce NEGATIVE (Negative); SARS-CoV-2 PCR NEGATIVE (Negative)
[2024-07-06] MEDS: predniSONE 20 mg Tablet 60 MG PO (21:10)
[2024-07-06 21:27] VITALS: BP 170/80; PULSE 85; RESP 19; O2SAT 94
[2024-07-06 21:28] VITALS: BP 170/80; PULSE 85; O2SAT 92
== END 2024-07-06 21:30 | disposition home or self-care (01) ==
PROVIDERS: Emergency Medicine; Emergency Provider Emergency Medicine; PCP Family Medicine
DX: J44.1 Chronic obstructive pulmonary disease with (acute) exacerbation (principal); I25.10 Atherosclerotic heart disease of native coronary artery without angina pectoris; I12.9 Hypertensive chronic kidney disease with stage 1 through stage 4 chronic kidney disease, or unspecified chronic kidney disease; N18.4 Chronic kidney disease, stage 4 (severe); F17.290 Nicotine dependence, other tobacco product, uncomplicated; Z11.52 Encounter for screening for COVID-19; Z79.82 Long term (current) use of aspirin
CPT/HCPCS: 36415; 36600; 71045; 80051; 80053; 82330; 82805; 83880; 84443; 85025; 87637; 93005; 94760; 99285; J7512

== ENCOUNTER → 2024-07-10 11:16 | Outpatient (BNVA) | payer MEDICARE, MEDICAID, SELFPAY | PROVIDERS: PCP Family Medicine; Visit Provider Family Medicine | DX: N18.9 Chronic kidney disease, unspecified (principal); D63.1 Anemia in chronic kidney disease | CPT/HCPCS: 82728; 83550; 85025 ==

== ENCOUNTER 2024-08-02 12:17 | Outpatient (CLI) | payer MEDICAID, MEDICARE, SELFPAY ==
[2024-08-02 14:56] LABS: Basophils # 0.1 10^3/uL (0.0-0.1); Basophils % 0.9 %; Eosinophils # 0.3 10^3/uL (0.0-0.8); Eosinophils % 4.3 %; Hematocrit 22.7 % (36-47); Lymphocytes # 0.9 10^3/uL (0.8-4.8); Lymphocytes % 14.2 %; Mean Corpuscular Hemoglobin 29.1 pg (27-33); Mean Platelet Volume 11.6 fL (7.4-10.4); Monocytes # 0.6 10^3/uL (0.2-0.9); Monocytes % 9.5 %; Neutrophils # 4.63 10^3/uL (1.8-7.7); Neutrophils % 70.9 %; Nucleated Red Blood Cells % 0 %; Platelet Count 241 10^3/cmm (157-399); Red Blood Count 2.34 10^6/uL (3.85-5.65); Red Cell Distribution Width 13.9 % (12.1-15.1); White Blood Count 6.53 10^3/uL (3.29-11.43)
[2024-08-02 15:20] LABS: Urine Creatinine 55 mg/dL (28-217)
[2024-08-02 15:21] LABS: UPRO/UCREAT Ratio 1.84 mg/mg CR; Urine Protein Random 101 mg/dL
[2024-08-02 15:34] LABS: Albumin Level 3.7 g/dL (3.5-5.2); Anion Gap 18.2 (5-19); Blood Urea Nitrogen 43 mg/dL (8-23); Calcium 8.9 mg/dL (8.5-10.5); Carbon Dioxide 21 mmol/L (22-29); Chloride 101 mmol/L (98-107); Glucose 78 mg/dL (65-115); Phosphorus 4.6 mg/dL (2.5-4.5); Potassium 5.2 mmol/L (3.5-5.1); Sodium 135 mmol/L (136-145)
[2024-08-02 21:14] LABS: Iron 53 ug/dL (37-145)
== END 2024-08-02 12:18 | disposition home or self-care (01) ==
LOC: LAB 12:27
PROVIDERS: PCP Family Medicine; Visit Provider Internal Medicine Nephrology
DX: N18.4 Chronic kidney disease, stage 4 (severe) (principal); D63.1 Anemia in chronic kidney disease
CPT/HCPCS: 36415; 80069; 82570; 83540; 84156; 85025

== ENCOUNTER 2024-08-02 17:30 | Observation (INO) | payer MEDICARE, MEDICAID, SELFPAY ==
[2024-08-02] VITALS (12 sets, daily range): BP systolic 131–173; BP diastolic 50–84; PULSE 62–98; RESP 16–20; TEMP 36.3–36.6; O2SAT 91–97; BMI 38.9; BMI 41.0
--- NOTE | 2024-08-02 17:55 | ED_ITS ---
HPI - Recheck/Abnormal Lab/Rx 2 General: Chief Complaint: Recheck/Abnormal Lab/Rx Stated Complaint: abnormal labs Time Seen by Provider: 08/02/24 17:44 Source: patient and family Mode of arrival: ambulatory Limitations: no limitations History of Present Illness: This patient was referred to the emergency department from primary care clinic. This patient has had a chronic anemia and apparently has been noted to have a lower hemoglobin than normal today. She has had associated fatigue and shortness of breath. However she does have a history of chronic kidney disease with a decreasing GFR. She is also had a history of aortic stenosis. She denies any concomitant chest pain. She denies any known history of peptic ulcer disease or gastrointestinal bleeding. There is no history of melena, bright red blood per rectum. She does not take nonsteroidals but apparently takes 81 mg of aspirin daily. She denies any concurrent chest pain. She states she has had some mild epigastric discomfort at times. She has had a previous cholecystectomy and a hysterectomy. Related Data Home Medications ?Medication ?Instructions ?Recorded ?Confirmed multivitamin 1 tab PO DAILY@1000 09/05/20 07/27/24 acetaminophen 500 mg tablet 500 mg PO Q6H PRN Pain 09/0407/27/24 (Tylenol Extra Strength) aspirin 81 mg tablet,delayed 81 mg PO DAILY@1000 11/0107/27/24 release cholecalciferol (vitamin D3) 25 25 mcg PO DAILY 07/27/24 mcg (1,000 unit) tablet (Vitamin D3) duloxetine 20 mg capsule,delayed 40 mg PO DAILY 07/27/24 release ferrous sulfate 325 mg (65 mg 325 mg PO DAILY 04/30/24 07/27/24 iron) tablet (Iron (ferrous sulfate)) levothyroxine 75 mcg tablet 75 mcg PO DAILY 04/30/24 0 07/27/24 omega 0-bap-xzv-fish oil 300 1 cap PO DAILY 04/30/24 0 07/27/24 mg-1,000 mg capsule (Fish Oil) pantoprazole 40 mg tablet,delayed 40 mg PO BID 4 07/27/24 release Previous Rx's ?Medication ?Instructions ?Recorded AFO #1 ea 02/20/21 nitroglycerin 0.4 mg sublingual 0.4 mg sublingual Q5M PRN Chest 07/21/22 tablet Pain #20 tabs alprazolam 0.5 mg tablet 0.5 mg PO DAILY PRN anxiety 07/02/23 attacks 90 days #90 tabs amlodipine 10 mg tablet 10 mg PO DAILY High blood Pr essure 09/23/23 #100 tabs aripiprazole 5 mg tablet (Abilify) 7.5 mg (1.5 x 5 mg) PO DAILY 01/24/24 mental health #135 tabs oxybutynin chloride 10 mg 10 mg PO DAILY #100 tabs tablet,extended release 24 hr furosemide 40 mg tablet (Lasix) 40 mg PO DAILY PRN anahi ght gain #14 05/02/24 tabs carvedilol 25 mg tablet 25 mg PO BID #180 tabs 05/30 fluticasone propionate 50 1 spray intranasal BID #16 g shahriar 05/30/24 mcg/actuation nasal spray,suspension hydralazine 100 mg tablet 100 mg PO TID #270 tabs 05/17 09/08 rosuvastatin 5 mg tablet 5 mg PO DAILY #100 tabs 05/17 11/08 valsartan 160 mg tablet 160 mg PO BID #240 tabs 05/18 08/08 ipratropium bromide 17 1 puff inhalation QID PRN mcg/actuation HFA aerosol inhaler Shortness Of Breath Or Wheezing (Atrovent HFA) #51 grams trazodone 50 mg tablet See Rx Instructions .Route 0 06/22/24 .COMPLEX #90 tabs prednisone 50 mg tablet 50 mg PO DAILY #5 tabs 07/06 Allergies Allergy/AdvReac Type Severity Reaction Status Date / Time diphenhydramine Allergy Severe ALGY-Difficulty Verified 07/10/24 10:38 Breathing famotidine (From Pepcid) Allergy Severe ALGY-Difficulty Verified 07/10/24 10:38 Breathing omeprazole (From Prilosec) Allergy Severe ALGY-Difficulty Verified 07/10/24 10:38 Breathing ranitidine Allergy Severe ALGY-Difficulty Verified 07/10/24 10:38 Breathing Sulfa (Sulfonamide Allergy Intermediate Hives Verified 07/10/24 10:38 Antibiotics) Amoxicillin Allergy Mild Rash Uncoded 07/10/24 10:38 tramadol AdvReac Mild Mental Uncoded 07/10/24 10:38 status changes Review of Systems 2 Const: Reports: change in appetite and fatigue; Denies: fever(s) or chills ENMT: Denies: throat pain, odynophagia, nasal discharge or nasal congestion Card: Reports: dyspnea on exertion; Denies: chest pain, palpitations or irregular heart rhythm Resp: Reports: dyspnea; Denies: productive cough or non-productive cough GI: Reports: abdominal pain; Denies: nausea, vomiting, hematemesis, hematochezia or melena : Reports: oliguria; Denies: urinary urgency or urinary hesitancy Musc: Reports: joint pain; Denies: neck pain, back pain or extremity pain Skin/Breast: Denies: rash or pruritus Neuro: Denies: headache(s), numbness in extremities or weakness in extremities Nghia/Lymph: Denies: easy bruising or easy bleeding PFSH ED 2 PFSH: Medical History History of lacunar cerebrovascular accident (CVA) on CT Mitral stenosis Secondary hyperparathyroidism Aortic stenosis Anxiety and depression Panic attacks & Long hx of depression, on Cymbalta > 10 years. 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 Morbid obesity with BMI of 40.0-44.9, adult JASON on CPAP Constipation by delayed colonic transit Osteoarthritis of both knees Ankle and foot deformity, acquired Anemia in chronic kidney disease (CKD) iron def; PAD (peripheral artery disease) Mixed incontinence AAA (abdominal aortic aneurysm) GERD (gastroesophageal reflux disease) COPD (chronic obstructive pulmonary disease) CAD (coronary artery disease) HTN (hypertension) Hx of myocardial infarction Hyperlipidemia Hypothyroidism Fibromyalgia Rheumatoid arthritis Surgical History History of arthroscopy of right shoulder Hx of hysterectomy ovaries remaining; done for female problems, no cancer History of bilateral cataract extraction Hx of cholecystectomy History of hip replacement Right Family History Father , AT 40 Cancer Mother , AT AGE 76 Cancer Heart disease Other CAD (coronary artery disease) Diabetes Social History Smoking and tobacco/nicotine status: current every day tobacco/nicotine user e- cigarettes E-Cigarette Details: vaporizer device Alcohol intake: current Alcohol intake frequency: holidays/special occasions only Substance/Drug Use: never Household members: other Details: lives with 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 She appears to be comfortable. Const: COMMON NORMALS: no acute distress and patient oriented x3 GENERAL APPEARANCE: cooperative and comfortable NUTRITIONAL APPEARANCE: overweight HENMT: COMMON NORMALS: atraumatic, Normal nasal mucous membranes and turbinates present, moist oral mucous membranes and oropharynx normal HEAD & SCALP: atraumatic NOSE: Normal nasal mucous membranes and turbinates present Eye: COMMON NORMALS: Equal, round and reactive pupils present, EOMs intact bilaterally, conjunctivae normal and no scleral icterus CONJUNCTIVA: Yes conjunctivae normal PUPIL: Yes Equal, round and reactive pupils present Neck/C-Spine: COMMON NORMALS: full ROM, no JVD and No carotid bruits Resp: COMMON NORMALS: normal respiratory effort, No retractions, No use of accessory muscles and clear to auscultation bilaterally AUSCULTATION: clear to auscultation bilaterally Cardio: COMMON NORMALS: no JVD, regular rate, regular rhythm and Peripheral pulses 2+ throughout RATE: regular rate RHYTHM: regular rhythm HEART SOUNDS: Murmur heart sound present PERIPHERAL PULSES: Peripheral pulses 2+ throughout GI: COMMON NORMALS: Normal to inspection, nondistended, normoactive bowel sounds present, Soft to palpation, non-tender and no masses PALPATION: Yes Soft to palpation Back/Pelvis: COMMON NORMALS: thoracic and lumbar spine normal to inspection, no thoracic nor lumbar tenderness and thoraco-lumbar ROM normal Extremity: COMMON NORMALS: normal to inspection, full ROM, capillary refill normal and no calf tenderness Neuro: COMMON NORMALS: patient oriented x3, moves all extremities, no focal motor deficits and no sensory deficits noted Psych: COMMON NORMALS: mental status grossly normal Skin: COMMON NORMALS: no rashes or lesions noted, no wounds and turgor normal GENERAL SKIN EXAM: no rashes or lesions noted and turgor normal Course 2 Consultations: Consultation #1: Discussed with Dr. Cassidy on-call for the hospitalist service overnight and he agreed to place the patient in observation for transfusion of 2 units of packed cells and reevaluation after transfusion Time: 19:44 Vital Signs: Vital signs: Vital Signs Pulse Rate 76 08/02/24 19:30 Respiratory Rate 16 08/02/24 17:38 Blood Pressure 139/61 08/02/24 19:30 Pulse Oximetry 92 08/02/24 19:30 Oxygen Delivery Me thod Room Air 08/02/24 19:30 MDM - Recheck/Abnormal Lab/Rx Medical Decision Making Patient presented to the emergency department as noted in the HPI. She has a history of progressive chronic renal failure. She is also had a history of mild anemia that is seemingly worsened. Uncertain as to the etiology of her anemia. Be a combination of her chronic renal failure but it has not been established whether she has occult blood loss at this time. She has had progressive dyspnea with exertion as well as weakness that is worsened recently. She has a history of near critical aortic stenosis as well. Patient had no history of melanotic stools bloody stools or history of nonsteroidal use that might suggest occult upper GI blood loss. Her hemoglobin at this time is 6.7 with a normal RDW and normal indices. The patient will need to be transfused but will need to be in an observation status to do so as she will need to be transfused slowly. Medical Records Most recent VELASQUEZ revealed aortic stenosis with a 1.2 cm? surface area aortic valve Lab Data I reviewed the patient's lab results. 08/02/24 18:00 08/02/24 18:00 Laboratory Results WBC 6.01 10^3/uL (3.29-11.43) 08/02/24 18:00 RBC 2.24 10^6/uL (3.85-5.65) L 08/02/24 18:00 Hgb 6.70 g/dL (11.27-16.99) L 08/02/24 18:00 Hct 21.2 % (36-47) L 08/02/24 18:00 MCV 94.6 fl (85-98) 08/02/24 18:00 MCH 29.9 pg (27-33) 08/02/24 18:00 MCHC 31.6 g/dL (30-55) D 08/02/24 18:00 RDW 13.9 % (12.1-15.1) 08/02/24 18:00 Plt Count 222 10^3/cmm (157-399) 08/02/24 18:00 MPV 11.2 fL (7.4-10.4) H 08/02/24 18:00 Neut % (Auto) 72.6 % 08/02/24 18:00 Lymph % (Auto) 13.5 % 08/02/24 18:00 [place] % (Auto) 8.0 % 08/02/24 18:00 Eos % (Auto) 4.8 % 08/02/24 18:00 Baso % (Auto) 0.8 % 08/02/24 18:00 Neut # (Auto) 4.36 10^3/uL (1.8-7.7) 08/02/24 18:00 Lymph # (Auto) 0.8 10^3/uL (0.8-4.8) 08/02/24 18:00 [place] # (Auto) 0.5 10^3/uL (0.2-0.9) 08/02/24 18:00 Eos # (Auto) 0.3 10^3/uL (0.0-0.8) 08/02/24 18:00 Baso # (Auto) 0.1 10^3/uL (0.0-0.1) 08/02/24 18:00 Nucleated RBC % (auto) 0 % 08/02/24 18:00 Nucleated RBCs # 0.0 /100WBC 08/02/24 18:00 Sodium 136 mmol/L (136-145) 08/02/24 18:00 Potassium 4.8 mmol/L (3.5-5.1) 08/02/24 18:00 Chloride 102 mmol/L (98-107) 08/02/24 18:00 Carbon Dioxide 18 mmol/L (22-29) L 08/02/24 18:00 Anion Gap 20.8 (5-19) H 08/02/24 18:00 BUN 43 mg/dL (8-23) H 08/02/24 18:00 Creatinine 3.7 mg/dL (0.5-0.9) H 08/02/24 18:00 GFR Calculation Not Reportable 08/02/24 18:00 Glucose 122 mg/dL (65-115) H 08/02/24 18:00 Calculated Osmolality 294 mOsm/kg (285-295) 08/02/24 18:00 Calcium 8.6 mg/dL (8.5-10.5) 08/02/24 18:00 Magnesium 1.9 mg/dL (1.7-2.3) 08/02/24 18:00 Total Bilirubin 0.2 mg/dL (0.15-1.2) 08/02/24 18:00 AST 8 U/L (0-32) 08/02/24 18:00 ALT < 5 U/L (0-33) 08/02/24 18:00 Alkaline Phosphatase 65 U/L (35-105) 08/02/24 18:00 Total Protein 6.8 g/dL (6.6-8.7) 08/02/24 18:00 Albumin 3.6 g/dL (3.5-5.2) 08/02/24 18:00 Globulin 3.2 g/dL (1.3-4.6) 08/02/24 18:00 Blood Type O Positive 08/02/24 18:00 Rho(D) Type Rh positive 08/02/24 18:00 Antibody Screen Negative 08/02/24 18:00 No radiology studies performed this visit Discharge Plan Discharge Patient Disposition: Placed in Observation Clinical Impression: Anemia, Aortic stenosis, Chronic progressive renal failure Condition: Stable Prescriptions: No Action multivitamin Tablet 1 tab PO DAILY@1000 acetaminophen [Tylenol Extra Strength] 500 mg tablet 500 mg PO Q6H PRN (Reason: Pain) (DME) AFO See Rx Instructions .Route .MEDSUPPLY Qty: 1 0RF Rx Instructions: As directed LAURA&O alprazolam 0.5 mg tablet 0.5 mg PO DAILY PRN (Reason: anxiety attacks) 90 Days Qty: 90 2RF hydralazine 100 mg tablet 100 mg PO TID Qty: 270 3RF fluticasone propionate 50 mcg/actuation spray,suspension 1 spray intranasal BID Qty: 16 0RF Rx Instructions: administer into each nostril carvedilol 25 mg tablet 25 mg PO BID Qty: 180 3RF Rx Instructions: must administer with a meal/food nitroglycerin 0.4 mg tablet, sublingual 0.4 mg SUBLINGUAL Q5M PRN (Reason: Chest Pain) Qty: 20 3RF Rx Instructions: do not exceed 3 doses per episode valsartan 160 mg tablet 160 mg PO BID Qty: 240 3RF amlodipine 10 mg tablet 10 mg PO DAILY Qty: 100 3RF aripiprazole [Abilify] 5 mg tablet 7.5 mg PO DAILY Qty: 135 1RF oxybutynin chloride 10 mg tablet extended release 24hr 10 mg PO DAILY Qty: 100 1RF rosuvastatin 5 mg tablet 5 mg PO DAILY Qty: 100 3RF Atrovent HFA 17 mcg/actuation HFA aerosol inhaler 1 puff inhalation QID PRN (Reason: Shortness Of Breath Or Wheezing) Qty: 51 1RF trazodone 50 mg tablet See Rx Instructions .ROUTE .COMPLEX Qty: 90 3RF Dose Instruction: TAKE 1 TABLET BY MOUTH AT BEDTIME Rx Instructions: TAKE 1 TABLET BY MOUTH AT BEDTIME aspirin 81 mg tablet,delayed release (DR/EC) 81 mg PO DAILY@1000 ferrous sulfate [Iron (ferrous sulfate)] 325 mg (65 mg iron) Tablet 325 mg PO DAILY cholecalciferol (vitamin D3) [Vitamin D3] 25 mcg (1,000 unit) Tablet 25 mcg PO DAILY omega 1-xbi-udm-fish oil [Fish Oil] 300-1,000 mg Capsule 1 cap PO DAILY levothyroxine 75 mcg tablet 75 mcg PO DAILY pantoprazole 40 mg tablet,delayed release (DR/EC) 40 mg PO BID duloxetine 20 mg capsule,delayed release(DR/EC) 40 mg PO DAILY furosemide [Lasix] 40 mg tablet 40 mg PO DAILY PRN (Reason: weight gain) Qty: 14 0RF prednisone 50 mg tablet 50 mg PO DAILY Qty: 5 0RF Referrals: Laura Lee MD [Primary Care Provider] - Print Language: Cymraes Coding Level of Care Code ED [place] for Yuli Murray
[2024-08-02 18:32] LABS: Basophils # 0.1 10^3/uL (0.0-0.1); Basophils % 0.8 %; Eosinophils # 0.3 10^3/uL (0.0-0.8); Eosinophils % 4.8 %; Hematocrit 21.2 % (36-47); Lymphocytes # 0.8 10^3/uL (0.8-4.8); Lymphocytes % 13.5 %; Mean Corpuscular HGB Conc 31.6 g/dL (30-55); Mean Corpuscular Hemoglobin 29.9 pg (27-33); Mean Corpuscular Volume 94.6 fl (85-98); Mean Platelet Volume 11.2 fL (7.4-10.4); Monocytes # 0.5 10^3/uL (0.2-0.9); Neutrophils # 4.36 10^3/uL (1.8-7.7); Neutrophils % 72.6 %; Nucleated Red Blood Cells % 0 %; Platelet Count 222 10^3/cmm (157-399); Red Blood Count 2.24 10^6/uL (3.85-5.65); Red Cell Distribution Width 13.9 % (12.1-15.1); White Blood Count 6.01 10^3/uL (3.29-11.43)
[2024-08-02 18:51] LABS: Alanine Aminotransferase < 5 U/L (0-33); Albumin Level 3.6 g/dL (3.5-5.2); Alkaline Phosphatase 65 U/L (35-105); Anion Gap 20.8 (5-19); Aspartate Amino Transferase 8 U/L (0-32); Blood Urea Nitrogen 43 mg/dL (8-23); Calcium 8.6 mg/dL (8.5-10.5); Carbon Dioxide 18 mmol/L (22-29); Chloride 102 mmol/L (98-107); Globulin 3.2 g/dL (1.3-4.6); Glucose 122 mg/dL (65-115); Magnesium 1.9 mg/dL (1.7-2.3); Osmolality Calculated 294 mOsm/kg (285-295); Potassium 4.8 mmol/L (3.5-5.1); Sodium 136 mmol/L (136-145); Total Bilirubin 0.2 mg/dL (0.15-1.2); Total Protein 6.8 g/dL (6.6-8.7)
--- NOTE | 2024-08-02 20:48 | PM.HP ---
Providers/Chief Complaint Admitting Physician: Reinaldo Arce MD Primary Care Provider: Laura Lee MD Chief Complaint: abnormal labs History of Present Illness Mahnaz Magallanes is a 78 year old female with chronic history of iron deficiency anemia, in the past required iron transfusion, blood transfusions, moderate to severe aortic stenosis, chronic kidney disease, getting cardiac clearance to get a fistula placed in near future, presenting from home for worsening of generalized weakness and fatigue along shortness of breath. Patient has not noticed any fever nausea vomiting diarrhea or blood in stool or urine or any chest pain. Patient is stating that she is not able to exert much without getting short of breath. She does not use any oxygen, smokes cigarettes on daily basis. A month ago her hemoglobin was around 7.7, workup in the ER revealed hemoglobin 6.7 no active sign of GI bleed patient not endorsing melanotic stools, or gastric ulcer Patient is stating that she makes adequate urine, does not take any diuretics Patient is stating that at home her blood pressure stays consistently 140-150s, blood pressure medications need to be readjusted Patient is also wearing a event monitor with concerns related sick sinus syndrome recently her Coreg dose was increased secondary to tachycardia as per the daughter at the bedside At the time of my evaluation she is hypertensive, requiring 2 L of oxygen, active wheezing I requested Lasix: Trazodone, she takes 50 mg of trazodone at home we will give her low-dose 25 mg for now Patient follows up with Dr. Shore who has not recommended valve surgery/replacement for now but patient is aware that she might need intervention in next 1 year Patient has EF 55%, noted aortic valve stenosis EM 1.2 cm with severe mitral annular calcification Recent Lexiscan stress test unremarkable Review of Systems Const: Denies: fever(s) Eyes: Denies: change in vision ENMT: Denies: throat pain Card: Reports: palpitations and swelling of feet/ankles Resp: Reports: dyspnea and wheezing GI: Denies: abdominal pain or nausea Medications/Allergies Home Medications ?Medication ?Instructions ?Recorded ?Confirmed ?Last Taken ?Type multivitamin 1 tab PO DAILY@1000 09/05/20 07/27/24 05/29/24 History acetaminophen 500 mg tablet 500 mg PO Q6H PRN Pain 09/17/20 07/27/24 05/29/24 History (Tylenol Extra Strength) aspirin 81 mg tablet,delayed 81 mg PO DAILY@1000 11/01/20 07/27/24 06/01/24 History release AFO #1 ea 02/20/21 07/27/24 Unknown Rx nitroglycerin 0.4 mg sublingual 0.4 mg sublingual Q5M PRN Chest 07/21/22 07/27/24 Unknown Rx tablet Pain #20 tabs alprazolam 0.5 mg tablet 0.5 mg PO DAILY PRN anxiety 07/02/23 07/27/24 05/17/24 Rx attacks 90 days #90 tabs amlodipine 10 mg tablet 10 mg PO DAILY High blood Pressure 09/23/23 07/27/24 06/02/24 Rx #100 tabs aripiprazole 5 mg tablet (Abilify) 7.5 mg (1.5 x 5 mg) PO DAILY 01/24/24 07/27/24 06/01/24 Rx mental health #135 tabs oxybutynin chloride 10 mg 10 mg PO DAILY #100 tabs 02/28/24 07/27/24 06/01/24 Rx tablet,extended release 24 hr cholecalciferol (vitamin D3) 25 25 mcg PO DAILY 04/30/24 07/27/24 05/29/24 History mcg (1,000 unit) tablet (Vitamin D3) duloxetine 20 mg capsule,delayed 40 mg PO DAILY 04/30/24 07/27/24 06/01/24 History release ferrous sulfate 325 mg (65 mg 325 mg PO DAILY 04/30/24 07/27/24 06/01/24 History iron) tablet (Iron (ferrous sulfate)) levothyroxine 75 mcg tablet 75 mcg PO DAILY 04/30/24 07/27/24 06/02/24 History omega 3-egy-qrs-fish oil 300 1 cap PO DAILY 04/30/24 07/27/24 05/29/24 History mg-1,000 mg capsule (Fish Oil) pantoprazole 40 mg tablet,delayed 40 mg PO BID 04/30/24 07/27/24 06/01/24 History release furosemide 40 mg tablet (Lasix) 40 mg PO DAILY PRN weight gain #14 05/02/24 07/27/24 Unknown Rx tabs carvedilol 25 mg tablet 25 mg PO BID #180 tabs 05/30/24 07/27/24 06/02/24 Rx fluticasone propionate 50 1 spray intranasal BID #16 grams 05/30/24 07/27/24 Unknown Rx mcg/actuation nasal spray,suspension hydralazine 100 mg tablet 100 mg PO TID #270 tabs 05/30/24 07/27/24 06/02/24 Rx rosuvastatin 5 mg tablet 5 mg PO DAILY #100 tabs 06/01/24 07/27/24 Unknown Rx valsartan 160 mg tablet 160 mg PO BID #240 tabs 06/08/24 07/10/24 Unknown Rx ipratropium bromide 17 1 puff inhalation QID PRN 06/15/24 07/27/24 Unknown Rx mcg/actuation HFA aerosol inhaler Shortness Of Breath Or Wheezing (Atrovent HFA) #51 grams trazodone 50 mg tablet See Rx Instructions .Route 06/22/24 07/27/24 Unknown Rx .COMPLEX #90 tabs prednisone 50 mg tablet 50 mg PO DAILY #5 tabs 07/06/24 07/27/24 Unknown Rx Allergies Allergy/AdvReac Type Severity Reaction Status Date / Time diphenhydramine Allergy Severe ALGY-Difficulty Verified 07/10/24 10:38 Breathing famotidine (From Pepcid) Allergy Severe ALGY-Difficulty Verified 07/10/24 10:38 Breathing omeprazole (From Prilosec) Allergy Severe ALGY-Difficulty Verified 07/10/24 10:38 Breathing ranitidine Allergy Severe ALGY-Difficulty Verified 07/10/24 10:38 Breathing Sulfa (Sulfonamide Allergy Intermediate Hives Verified 07/10/24 10:38 Antibiotics) Amoxicillin Allergy Mild Rash Uncoded 07/10/24 10:38 tramadol AdvReac Mild Mental Uncoded 07/10/24 10:38 status changes PFSH Acute PFSH: Medical History History of lacunar cerebrovascular accident (CVA) on CT Mitral stenosis Secondary hyperparathyroidism Aortic stenosis Anxiety and depression Panic attacks & Long hx of depression, on Cymbalta > 10 years. CKD (chronic kidney disease) stage 4, GFR 15-29 ml/min seeing spare fixer Morbid obesity with BMI of 40.0-44.9, adult JASON on CPAP Constipation by delayed colonic transit Osteoarthritis of both knees Ankle and foot deformity, acquired Anemia in chronic kidney disease (CKD) iron def; PAD (peripheral artery disease) Mixed incontinence AAA (abdominal aortic aneurysm) GERD (gastroesophageal reflux disease) COPD (chronic obstructive pulmonary disease) CAD (coronary artery disease) HTN (hypertension) Hx of myocardial infarction Hyperlipidemia Hypothyroidism Fibromyalgia Rheumatoid arthritis Surgical History History of arthroscopy of right shoulder Hx of hysterectomy ovaries remaining; done for female problems, no cancer History of bilateral cataract extraction Hx of cholecystectomy History of hip replacement Right Family History Father , AT 40 Cancer Mother , AT AGE 76 Cancer Heart disease Other CAD (coronary artery disease) Diabetes Social History Smoking and tobacco/nicotine status: current every day tobacco/nicotine user e-cigarettes E-Cigarette Details: vaporizer device Alcohol intake: current Alcohol intake frequency: holidays/special occasions only Substance/Drug Use: never Household members: other Details: lives with daughter field party manager--and field party manager next to 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 Marital status: / Number of children: 3 Highest education level completed: Associate Degree: Occupational, Technical, Vocational Program 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 and disabled Vitals/I&O/Wt Last Vital Signs Pulse 95 08/02/24 20:44 Resp 16 08/02/24 17:38 BP 171/54 08/02/24 20:44 Pulse Ox 95 08/02/24 20:44 O2 Del Method Nasal Cannula 08/02/24 20:00 O2 Flow Rate 2 08/02/24 20:00 Weight last 48 hrs Weight 96.615 kg Physical Exam Narrative: Patient experiencing wheezing Currently on 2 L Clinical signs of fluid overload Semi-Cueva position No active chest pain GCS 15 Hypertensive Abdomen soft Lower extremity 2+ edema Pleasant and cooperative GCS 15 No active focal deficit Daughter at the bedside AOx4 Data 08/02/24 18:00 08/02/24 18:00 A&P Assessment and plan (1) Aortic stenosis: Qualifiers: Cardiac valve disease etiology: etiology unspecified Qualified Code(s): I35.0 - Nonrheumatic aortic (valve) stenosis (2) Mitral stenosis: Qualifiers: Cardiac valve disease etiology: etiology unspecified Qualified Code(s): I05.0 - Rheumatic mitral stenosis (3) Hypertensive urgency: (4) Hypothyroidism: Qualifiers: Hypothyroidism type: acquired Qualified Code(s): E03.9 - Hypothyroidism, unspecified (5) Morbid obesity with BMI of 40.0-44.9, adult: (6) GERD (gastroesophageal reflux disease): Qualifiers: Esophagitis presence: without esophagitis Qualified Code(s): K21.9 - Gastro-esophageal reflux disease without esophagitis (7) CKD (chronic kidney disease) stage 4, GFR 15-29 ml/min: (8) Chronic progressive renal failure: Qualifiers: Chronic kidney disease stage: stage 5 (GFR < 15) Qualified Code(s): N18.5 - Chronic kidney disease, stage 5 (9) Anemia in chronic kidney disease (CKD): (10) Iron deficiency anemia, unspecified: (11) Anemia: Qualifiers: Anemia type: unspecified type Qualified Code(s): D64.9 - Anemia, unspecified (12) COPD (chronic obstructive pulmonary disease): Qualifiers: COPD type: unspecified COPD Qualified Code(s): J44.9 - Chronic obstructive pulmonary disease, unspecified (13) JASON on CPAP: Plan Acute on chronic anemia Iron deficiency Required blood transfusion in the past along iron No active sign of GI bleed Not endorsing melanotic stools Continue Protonix and sucralfate Requested 2 unit PRBC Patient seems to have fluid overloaded signs and symptoms we will give her IV Lasix 20 mg Anemia of chronic disease versus hemolysis secondary to moderate Requested LDH, bilirubin level and haptoglobin Chronic kidney disease: Patient is getting her fistula placed in near future, she is getting cardiac clearance, recent stress test negative cardiology has not recommended valve replacement/surgery for now Diastolic CHF exacerbation: Will give her IV Lasix low-dose for now Underlying mitral valve calcification and moderate aortic valve stenosis Uncontrolled hypertension: She needs optimization of antihypertensive regimen Systolic blood pressure at home runs 140s to 150s Dyspnea on exertion is chronic Hypoxia: Requiring 2 L: Presented fluid overload with active wheezing I do believe this is cardiac wheezing, IV Lasix administered along DuoNeb Insomnia: Low-dose trazodone Full code Cardiac diet Sleep apnea noncompliant with CPAP DVT prophylaxis: SCDs PDMP PDMP Reviewed: Not Reviewed Attestations Medical Necessity Statement*: Anticipate discharge within 24 to 48 hours Diagnoses Aortic stenosis I35.0 Cardiac valve disease etiology: etiology unspecified Mitral valve stenosis, unspecified etiology I05.0 Cardiac valve disease etiology: etiology unspecified Hypertensive urgency I16.0 Acquired hypothyroidism E03.9 Hypothyroidism type: acquired Morbid obesity with BMI of 40.0-44.9, adult E66.01; Z68.41 Gastroesophageal reflux disease without esophagitis K21.9 Esophagitis presence: without esophagitis CKD (chronic kidney disease) stage 4, GFR 15-29 ml/min N18.4 Chronic progressive renal failure N18.5 Chronic kidney disease stage: stage 5 (GFR < 15) Anemia in chronic kidney disease (CKD) N18.9; D63.1 Iron deficiency anemia, unspecified D50.9 Anemia, unspecified type D64.9 Anemia type: unspecified type Chronic obstructive pulmonary disease, unspecified COPD type J44.9 COPD type: unspecified COPD JASON on CPAP G47.33; Z99.89
[2024-08-02] MEDS: pantoprazole 40 mg SDV IVP (21:25)
[2024-08-02] MEDS: sucralfate 1 gm/10 mL Oral Liq UDC PO (21:25)
[2024-08-02] MEDS: sodium chloride 0.9% 100 mL Bag IV (21:32)
[2024-08-02] MEDS: FUROsemide 10 mg/mL SDV 2mL 20 MG IVP (22:20)
[2024-08-02] MEDS: trazodone 50 mg Tablet 25 MG PO (22:20)
[2024-08-02] MEDS: hyDRALAzine 10 mg Tablet PO (23:39)
[2024-08-03] VITALS (19 sets, daily range): BP systolic 136–172; BP diastolic 52–79; PULSE 64–102; RESP 17–22; TEMP 36.4–36.7; O2SAT 90–97
[2024-08-03] MEDS: sodium chloride 0.9% 100 mL Bag IV (01:02)
[2024-08-03] MEDS: acetaminophen 500 mg Tablet PO (05:27)
[2024-08-03] MEDS: sucralfate 1 gm/10 mL Oral Liq UDC PO ×4 (05:28→20:56)
[2024-08-03 05:58] LABS: Basophils # 0.1 10^3/uL (0.0-0.1); Basophils % 0.7 %; Eosinophils # 0.4 10^3/uL (0.0-0.8); Eosinophils % 4.2 %; Lymphocytes # 0.9 10^3/uL (0.8-4.8); Lymphocytes % 9.7 %; Mean Corpuscular Hemoglobin 29.1 pg (27-33); Mean Corpuscular Volume 90.9 fl (85-98); Mean Platelet Volume 11.1 fL (7.4-10.4); Monocytes # 0.6 10^3/uL (0.2-0.9); Monocytes % 7.1 %; Neutrophils # 6.89 10^3/uL (1.8-7.7); Neutrophils % 78.1 %; Nucleated Red Blood Cells % 0 %; Platelet Count 227 10^3/cmm (157-399); Red Blood Count 3.51 10^6/uL (3.85-5.65); Red Cell Distribution Width 15.3 % (12.1-15.1); White Blood Count 8.83 10^3/uL (3.29-11.43)
[2024-08-03 06:20] LABS: Anion Gap 18.9 (5-19); Blood Urea Nitrogen 42 mg/dL (8-23); Carbon Dioxide 20 mmol/L (22-29); Chloride 101 mmol/L (98-107); Glucose 90 mg/dL (65-115); Magnesium 1.9 mg/dL (1.7-2.3); Osmolality Calculated 290 mOsm/kg (285-295); Potassium 4.9 mmol/L (3.5-5.1); Sodium 135 mmol/L (136-145)
[2024-08-03 06:23] LABS: Hematocrit 31.9 % (36-47)
[2024-08-03] MEDS: ipratropium-albuterol 3 mL Neb INHALATION ×3 (08:00→20:19)
[2024-08-03] MEDS: carvedilol 25 mg Tablet PO ×2 (08:25→17:53)
[2024-08-03] MEDS: hyDRALAzine 10 mg Tablet PO (08:25)
[2024-08-03] MEDS: FUROsemide 20 mg Tablet PO (08:25)
[2024-08-03] MEDS: pantoprazole 40 mg SDV IVP ×2 (08:25→20:56)
[2024-08-03] MEDS: amlodipine 10 mg Tablet PO (08:25)
--- NOTE | 2024-08-03 09:15 | PC.PHAR ---
Addendum entered by Emmy Marquez 08/03/24 09:23: [facility] . They ask for our Original Note: Pt states she does not know or want to go over her medications. Pt uses [facility]. [facility] shows the following older medications never refilled: Alprazolam 0.5mg daily prn anxiety-07/02/23 Amlodipine 10mg daily-09/23/23 Abilify 5mg-7.5mg daily-01/24/24 Duloxetine 20mg-40mg daily-02/16/24 Hydralazine [id number]-lnx-75/17/24 Oxybutynin Chl. 50zz-rbtnv-16/14/24 Protonix 40mg-bid-04/30/24
[2024-08-03 13:12] LABS: ABG PCO2 45.2 mmHg (35-45); ABG PH Result 7.32 (7.35-7.45); Arterial Blood Gas Hematocrit 30.4 % (37-47); Base Excess ABG -2.9 mmol/L (-2.0-2.0); Blood Gas Allen Test Pos; Blood Gas Operator Identificat WALCI; Blood Gas Sample Site Radial, right; Blood Gas Sample Type Arterial; HCO3 ABG 23.2 mmol/L (22-26); Oxygen Device NC; PO2 ABG 60.1 mmHg (80.0-100.0)
[2024-08-03] MEDS: hyDRALAzine 50 mg Tablet PO ×2 (14:54→20:56)
--- NOTE | 2024-08-03 15:52 | P.PN_ITS ---
Subjective 2 Subjective: overnight labs and H&P reviewed. Medications: Reviewed: Yes Vitals/I&O/Wt Last Vital Signs Temp 97.5 F L 08/03/24 11:57 Pulse 72 08/03/24 13:21 Resp 18 08/03/24 13:21 BP 148/73 08/03/24 11:57 Pulse Ox 93 08/03/24 13:21 O2 Del Method Room Air 08/03/24 13:21 O2 Flow Rate 1 08/03/24 07:58 08/03/24 08/03/24 08/03/24 06:59 14:59 22:59 Intake Total 1150 / 1150 480 / 480 Balance 1150 / 1150 480 / 480 Weight last 48 hrs Weight 97.795 kg Weight 98.43 kg Weight 96.615 kg Physical Exam 2 Narrative: General: Drowsy, lethargic, wakes up to calling name, answers questions but then falls asleep easily HEENT: PERRLA, pupils bilaterally equal and reactive, pallors not present Chest: Normal vesicular breath sounds, no added sounds, equal good air entry bilaterally Abdomen: Soft, nontender, no organomegaly, bowel sounds present Neuro: No focal deficits, somnolent, lethargic EXT: 1+ pitting edema B/L LE Data 08/03/24 05:30 08/03/24 05:30 A&P Assessment and plan (1) Aortic stenosis: Qualifiers: Cardiac valve disease etiology: etiology unspecified Qualified Code(s): I35.0 - Nonrheumatic aortic (valve) stenosis (2) Mitral stenosis: Qualifiers: Cardiac valve disease etiology: etiology unspecified Qualified Code(s): I05.0 - Rheumatic mitral stenosis (3) Hypertensive urgency: (4) Hypothyroidism: Qualifiers: Hypothyroidism type: acquired Qualified Code(s): E03.9 - Hypothyroidism, unspecified (5) Morbid obesity with BMI of 40.0-44.9, adult: (6) GERD (gastroesophageal reflux disease): Qualifiers: Esophagitis presence: without esophagitis Qualified Code(s): K21.9 - Gastro-esophageal reflux disease without esophagitis (7) CKD (chronic kidney disease) stage 4, GFR 15-29 ml/min: (8) Chronic progressive renal failure: Qualifiers: Chronic kidney disease stage: stage 5 (GFR < 15) Qualified Code(s): N 18.5 - Chronic kidney disease, stage 5 (9) Anemia in chronic kidney disease (CKD): (10) Iron deficiency anemia, unspecified: (11) Anemia: Qualifiers: Anemia type: unspecified type Qualified Code(s): D64.9 - Anemia, unspecified (12) COPD (chronic obstructive pulmonary disease): Qualifiers: COPD type: unspecified COPD Qualified Code(s): J44.9 - Chronic obstructive pulmonary disease, unspecified (13) JASON on CPAP: Plan Acute on chronic anemia Iron deficiency Required blood transfusion in the past along iron No active sign of GI bleed Not endorsing melanotic stools Continue Protonix and sucralfate Requested 2 unit PRBC Patient seems to have fluid overloaded signs and symptoms we will give her IV Lasix 20 mg Anemia of chronic disease versus hemolysis secondary to moderate Requested LDH, bilirubin level and haptoglobin Chronic kidney disease: Patient is getting her fistula placed in near future, she is getting cardiac clearance, recent stress test negative cardiology has not recommended valve replacement/surgery for now Diastolic CHF exacerbation: Will give her IV Lasix low-dose for now Underlying mitral valve calcification and moderate aortic valve stenosis Uncontrolled hypertension: She needs optimization of antihypertensive regimen Systolic blood pressure at home runs 140s to 150s Dyspnea on exertion is chronic Hypoxia: Requiring 2 L: Presented fluid overload with active wheezing I do believe this is cardiac wheezing, IV Lasix administered along DuoNeb Insomnia: Low-dose trazodone Full code Cardiac diet Sleep apnea noncompliant with CPAP DVT prophylaxis: SCDs 08/03/24: Patient with a h/o CKD and chronic anemia, s/p transfusion of 2PRBC overnight. Hb improved this am at 10.2. Cr higher than baseline of 2.6-3.1. T . bili normal, less likely hemolytic anemia,will check haptoglobin, LDH. Check BNP, D dimer for PE screen. Additional 20mg iv lasix today as hypervolemic. Patient is somnolent and lethargic. Has a h/o sleep apnea but has not been using CPAP recently as she did not bring it from her camper to inside the house where she now resides. Obtained ABG which showed respiratory acidosis with hypercapnea and hypoxia. To be placed on BIpap for hypercapnea. CPAP ordered for night time use. Potentially hypercapnea may be contributing to somnolence currently. Medication list reconciled. Trazodone dose decreased last night to 25mg daily. Resume home dose of levothyroxine. Check TSH with am labs PDMP PDMP Reviewed: Not Reviewed Attestations 2 Medical Necessity Statement*: change to inpatient admission, hypercapenic respiratory acidosis Coding Level of Care Code Acute Code for Chg Fwd Diagnoses Aortic stenosis I35.0 Cardiac valve disease etiology: etiology unspecified Mitral valve stenosis, unspecified etiology I05.0 Cardiac valve disease etiology: etiology unspecified Hypertensive urgency I16.0 Acquired hypothyroidism E03.9 Hypothyroidism type: acquired Morbid obesity with BMI of 40.0-44.9, adult E66.01; Z68.41 Gastroesophageal reflux disease without esophagitis K21.9 Esophagitis presence: without esophagitis CKD (chronic kidney disease) stage 4, GFR 15-29 ml/min N18.4 Chronic progressive renal failure N18.5 Chronic kidney disease stage: stage 5 (GFR < 15) Anemia in chronic kidney disease (CKD) N18.9; D63.1 Iron deficiency anemia, unspecified D50.9 Anemia, unspecified type D64.9 Anemia type: unspecified type Chronic obstructive pulmonary disease, unspecified COPD type J44.9 COPD type: unspecified COPD JASON on CPAP G47.33; Z99.89
[2024-08-03 17:23] LABS: D Dimer 2.87 ug/mLFEU (0-0.59)
[2024-08-03 17:25] LABS: Troponin T (5th) Once 16 ng/L (0-10)
[2024-08-03 17:26] LABS: NT Pro B Type Natriuretic Pept 6576 pg/mL (0-450)
[2024-08-03] MEDS: FUROsemide 10 mg/mL SDV 2mL 20 MG IVP (17:53)
--- NOTE | 2024-08-03 18:50 | USCV_ITS ---
Mahnaz Magallanes Age: 78 Gender: F : 1945 Exam Date: 08/03/2024 19:04 Ordering Phys: Pilar Reid MD Technologist: FREDO Exam Location: [facility] – [place] Indication: assess for DVT Patient is unable to turn or move. HISTORY: assess for DVT Patient is unable to turn or move, being only partially responsive and sitting in chair. PROCEDURES: Venous duplex imaging was performed in bilateral lower extremities. The following venous structures were evaluated: common femoral vein, profunda vein, proximal portion of the greater saphenous vein, superficial femoral vein, and the popliteal vein. In addition, the posterior tibial veins were evaluated. Serial compression, augmentation maneuvers, and spectral Doppler flow evaluation were performed, which were normal. Bilaterally, the common femoral, superficial femoral, profunda femoral, popliteal, posterior tibial, and greater saphenous veins were identified and interrogated in the standard fashion. These veins were found to be easily compressible with spontaneous blood flow. No evidence of thrombus noted. CONCLUSIONS No evidence of right lower extremity DVT. No evidence of left lower extremity DVT. Agustín Shen MD (Electronically Signed) Final Date: 04 August 2024 09:25 S
[2024-08-03 20:13] LABS: ABG PCO2 44.8 mmHg (35-45); ABG PH Result 7.32 (7.35-7.45); Arterial Blood Gas Hematocrit 32.2 % (37-47); Base Excess ABG -2.9 mmol/L (-2.0-2.0); Blood Gas Allen Test Pos; Blood Gas Operator Identificat gerca; Blood Gas Sample Site Radial, right; Blood Gas Sample Type Arterial; HCO3 ABG 23.2 mmol/L (22-26); Oxygen Device NC; PO2 ABG 77.4 mmHg (80.0-100.0)
[2024-08-03] MEDS: trazodone 50 mg Tablet 25 MG PO (20:56)
[2024-08-03 22:03] LABS: Bilirubin Urine Negative (Negative); Blood Urine Negative (Negative); Glucose Urine UA Negative (Normal); Ketones Urine Negative (Negative); Leukocyte Esterase Urine 3+ (Negative); Nitrate Urine Negative (Negative); Protein Urine 2+ (Negative); Specific Gravity, Urine 1.005 (1.005-1.030); Urine Appearance Cloudy (CLEAR); Urine Color Yellow (Yellow); Urobilinogen Urine 0.2 mg/dL (Negative)
[2024-08-03 22:08] LABS: Add Urine Microscopic? YES; Bacteria Urine 4+ /hpf; RBC Urine 0-2 /hpf (0-2); Squamous Epithelial Cell Urine 0-5 /hpf (0-5); WBC Urine >100 /hpf (0-5)
[2024-08-03 22:14] LABS: Add Urine Culture? Yes
[2024-08-04] VITALS (11 sets, daily range): BP systolic 105–157; BP diastolic 68–88; PULSE 64–106; RESP 16–24; TEMP 36.3–36.6; O2SAT 88–98
[2024-08-04] MEDS: ipratropium-albuterol 3 mL Neb INHALATION ×3 (02:27→20:27)
[2024-08-04 05:51] LABS: Basophils # 0.1 10^3/uL (0.0-0.1); Basophils % 0.8 %; Eosinophils # 0.3 10^3/uL (0.0-0.8); Eosinophils % 4.1 %; Hematocrit 28.8 % (36-47); Lymphocytes # 0.6 10^3/uL (0.8-4.8); Lymphocytes % 8.1 %; Mean Corpuscular HGB Conc 32.6 g/dL (30-55); Mean Corpuscular Hemoglobin 29.6 pg (27-33); Mean Corpuscular Volume 90.6 fl (85-98); Mean Platelet Volume 10.6 fL (7.4-10.4); Monocytes # 0.6 10^3/uL (0.2-0.9); Monocytes % 8.2 %; Neutrophils # 6.12 10^3/uL (1.8-7.7); Neutrophils % 78.5 %; Nucleated Red Blood Cells % 0 %; Platelet Count 215 10^3/cmm (157-399); Red Blood Count 3.18 10^6/uL (3.85-5.65); Red Cell Distribution Width 15.6 % (12.1-15.1); White Blood Count 7.79 10^3/uL (3.29-11.43)
[2024-08-04 06:03] LABS: Alanine Aminotransferase < 5 U/L (0-33); Albumin Level 3.7 g/dL (3.5-5.2); Alkaline Phosphatase 65 U/L (35-105); Anion Gap 15.4 (5-19); Aspartate Amino Transferase 8 U/L (0-32); Blood Urea Nitrogen 41 mg/dL (8-23); Carbon Dioxide 23 mmol/L (22-29); Chloride 101 mmol/L (98-107); Globulin 3.4 g/dL (1.3-4.6); Glucose 115 mg/dL (65-115); Osmolality Calculated 291 mOsm/kg (285-295); Potassium 4.4 mmol/L (3.5-5.1); Sodium 135 mmol/L (136-145); Total Bilirubin 0.4 mg/dL (0.15-1.2); Total Protein 7.1 g/dL (6.6-8.7)
[2024-08-04 06:11] LABS: Thyroid Stimulating Hormone 2.73 uIU/mL (0.27-4.20)
[2024-08-04] MEDS: pantoprazole 40 mg SDV IVP ×2 (08:34→19:49)
[2024-08-04] MEDS: ATORVASTATIN 10 MG TABLET 20 MG PO (08:35)
[2024-08-04] MEDS: levothyroxine 75 mcg Tablet PO (08:35)
[2024-08-04] MEDS: FUROsemide 20 mg Tablet PO (08:35)
[2024-08-04] MEDS: ferrous sulfate EC 325 mg Tablet PO (08:35)
[2024-08-04] MEDS: carvedilol 25 mg Tablet PO ×2 (08:35→17:15)
[2024-08-04] MEDS: amlodipine 10 mg Tablet PO (08:35)
[2024-08-04] MEDS: sucralfate 1 gm/10 mL Oral Liq UDC PO ×4 (08:40→19:49)
--- NOTE | 2024-08-04 09:53 | USR_ITS ---
PROCEDURE INFORMATION: Exam: US Retroperitoneal, Complete, Kidneys and Bladder Exam date and time: 08/04/2024 10:12 AM Age: 78 years old Clinical indication: Condition or disease; Other: Assess for hydronephrosis TECHNIQUE: Imaging protocol: Real-time ultrasound of the retroperitoneum with image documentation. Complete exam focused on the bilateral kidneys and urinary bladder. COMPARISON: US renal BI* [id number] 05/01/2024 7:49 AM FINDINGS: Limited evaluation secondary to bowel gas and body habitus. Right kidney: Atrophied hyperechoic right kidney measures 8.2 cm. No hydronephrosis. No mass. Superior pole right kidney 1.3 cm cyst, similar to prior. Multiple other cysts are not well evaluated on this exam. Left kidney: Atrophied hyperechoic left kidney measures 11.0 cm. No hydronephrosis. No mass. Superior pole left kidney 3.3 x 4.5 x 3.6 cm cyst, , mildly increased from prior. Urinary bladder: Well-distended. No masses. Left ureteral jet visualized. US/US renal BI* [id number] IMPRESSION: 1. Atrophied kidneys with medical renal disease, [id number]-left. 2. No hydronephrosis. Left ureteral jet visualized. Nonvisualization of the right ureteral jet. 3. Grossly stable appearance of the bilateral renal cysts.
[2024-08-04] MEDS: cefepime 1,000 mg SDV 1000 MG IVP (12:00)
[2024-08-04] MEDS: hyDRALAzine 50 mg Tablet PO ×2 (14:42→19:49)
--- NOTE | 2024-08-04 15:14 | PC.NURSE ---
This nurse confiscated 2 vapes and 1 box of nicotine pods for vape. They have been locked up in xus at this time and a nicotine patch has been requested.
--- NOTE | 2024-08-04 16:32 | P.PN_ITS ---
Subjective 2 Subjective: UA with > 100 WBC, #= leukocyte esterase, urin ecx pending. ABG improved aftrer being on bipap last evening. Medications: Reviewed: Yes Vitals/I&O/Wt Last Vital Signs Temp 97.7 F 08/04/24 16:06 Pulse 96 08/04/24 16:06 Resp 16 08/04/24 16:06 BP 149/68 08/04/24 16:06 Pulse Ox 98 08/04/24 16:06 O2 Del Method Nasal Cannula 08/04/24 16:06 O2 Flow Rate 1 08/04/24 16:06 FiO2 21 08/03/24 16:15 08/04/24 08/04/24 08/04/24 06:59 14:59 22:59 Intake Total 300 / 1480 360 / 360 Output Total 300 / 750 300 / 300 Balance 0 / 730 60 / 60 Weight last 48 hrs Weight 97.658 kg Weight 97.795 kg Weight 98.43 kg Weight 96.615 kg Physical Exam 2 Narrative: General: No acute distress, AO x3 HEENT: PERRLA, pupils bilaterally equal and reactive, pallors not present Chest: Normal vesicular breath sounds, no added sounds, equal good air entry bilaterally CVS: S1-S2 regular, no murmurs, no tachycardia, no gallops, no rubs Abdomen: Soft, nontender, no organomegaly, bowel sounds present Neuro: No focal deficits, no facial deformity, AO x3, power 5/5 in all limbs Data 08/04/24 05:31 08/04/24 05:31 Micro: Microbiology 08/04/24 13:36 Occult Blood (FIT) - Final Stool Routine Collection A&P Assessment and plan (1) Aortic stenosis: Qualifiers: Cardiac valve disease etiology: etiology unspecified Qualified Code(s): I35.0 - Nonrheumatic aortic (valve) stenosis (2) Mitral stenosis: Qualifiers: Cardiac valve disease etiology: etiology unspecified Qualified Code(s): I05.0 - Rheumatic mitral stenosis (3) Hypertensive urgency: (4) Hypothyroidism: Qualifiers: Hypothyroidism type: acquired Qualified Code(s): E03.9 - Hypothyroidism, unspecified (5) Morbid obesity with BMI of 40.0-44.9, adult: (6) GERD (gastroesophageal reflux disease): Qualifiers: Esophagitis presence: without esophagitis Qualified Code(s): K21.9 - Gastro-esophageal reflux disease without esophagitis (7) CKD (chronic kidney disease) stage 4, GFR 15-29 ml/min: (8) Chronic progressive renal failure: Qualifiers: Chronic kidney disease stage: stage 5 (GFR < 15) Qualified Code(s): N 18.5 - Chronic kidney disease, stage 5 (9) Anemia in chronic kidney disease (CKD): (10) Iron deficiency anemia, unspecified: (11) Anemia: Qualifiers: Anemia type: unspecified type Qualified Code(s): D64.9 - Anemia, unspecified (12) COPD (chronic obstructive pulmonary disease): Qualifiers: COPD type: unspecified COPD Qualified Code(s): J44.9 - Chronic obstructive pulmonary disease, unspecified (13) JASON on CPAP: Plan Acute on chronic anemia Iron deficiency Required blood transfusion in the past along iron No active sign of GI bleed Not endorsing melanotic stools Continue Protonix and sucralfate Requested 2 unit PRBC Patient seems to have fluid overloaded signs and symptoms we will give her IV Lasix 20 mg Anemia of chronic disease versus hemolysis secondary to moderate Requested LDH, bilirubin level and haptoglobin Chronic kidney disease: Patient is getting her fistula placed in near future, she is getting cardiac clearance, recent stress test negative cardiology has not recommended valve replacement/surgery for now Diastolic CHF exacerbation: Will give her IV Lasix low-dose for now Underlying mitral valve calcification and moderate aortic valve stenosis Uncontrolled hypertension: She needs optimization of antihypertensive regimen Systolic blood pressure at home runs 140s to 150s Dyspnea on exertion is chronic Hypoxia: Requiring 2 L: Presented fluid overload with active wheezing I do believe this is cardiac wheezing, IV Lasix administered along DuoNeb Insomnia: Low-dose trazodone Full code Cardiac diet Sleep apnea noncompliant with CPAP DVT prophylaxis: SCDs 08/03/24: Patient with a h/o CKD and chronic anemia, s/p transfusion of 2PRBC overnight. Hb improved this am at 10.2. Cr higher than baseline of 2.6-3.1. T . bili normal, less likely hemolytic anemia,will check haptoglobin, LDH. Check BNP, D dimer for PE screen. Additional 20mg iv lasix today as hypervolemic. Patient is somnolent and lethargic. Has a h/o sleep apnea but has not been using CPAP recently as she did not bring it from her camper to inside the house where she now resides. Obtained ABG which showed respiratory acidosis with hypercapnea and hypoxia. To be placed on BIpap for hypercapnea. CPAP ordered for night time use. Potentially hypercapnea may be contributing to somnolence currently. Medication list reconciled. Trazodone dose decreased last night to 25mg daily. Resume home dose of levothyroxine. Check TSH with am labs 08/04/24 : Izabel is more awake and alert today. Bipap use with improvement in ABG. Hypecapnea and resp acidosis resolved. Cpap use at night time. UA + WBC and leukocyte esterase, start cefepime renally dosed. await urine cx. PDMP PDMP Reviewed: Not Reviewed Attestations 2 Medical Necessity Statement*: iv abx for UTI, await urine cx Coding Level of Care Code Acute Code for Chg Fwd Diagnoses Aortic stenosis I35.0 Cardiac valve disease etiology: etiology unspecified Mitral valve stenosis, unspecified etiology I05.0 Cardiac valve disease etiology: etiology unspecified Hypertensive urgency I16.0 Acquired hypothyroidism E03.9 Hypothyroidism type: acquired Morbid obesity with BMI of 40.0-44.9, adult E66.01; Z68.41 Gastroesophageal reflux disease without esophagitis K21.9 Esophagitis presence: without esophagitis CKD (chronic kidney disease) stage 4, GFR 15-29 ml/min N18.4 Chronic progressive renal failure N18.5 Chronic kidney disease stage: stage 5 (GFR < 15) Anemia in chronic kidney disease (CKD) N18.9; D63.1 Iron deficiency anemia, unspecified D50.9 Anemia, unspecified type D64.9 Anemia type: unspecified type Chronic obstructive pulmonary disease, unspecified COPD type J44.9 COPD type: unspecified COPD JASON on CPAP G47.33; Z99.89
[2024-08-04] MEDS: nicotine 7 mg Patch 1 PATCH TRANSDERMA (17:19)
[2024-08-04] MEDS: acetaminophen 500 mg Tablet PO (19:49)
[2024-08-04] MEDS: trazodone 50 mg Tablet 25 MG PO (19:49)
[2024-08-05] VITALS (12 sets, daily range): BP systolic 92–163; BP diastolic 60–78; PULSE 67–114; RESP 18–22; TEMP 36.3–36.7; O2SAT 90–100
--- NOTE | 2024-08-05 01:06 | PC.NURSE ---
Addendum entered by Giovana Ricardo RN 08/05/24 05:46: Patient wore Bipap again from approximately 3 AM to approximately 5:30 AM. Patient states she does not want to wear that thing anymore. Original Note: Patient wore Bipap from approximately 8 pm to approximately 1 am. Patient states that she wants to have it off for awhile because it was hurting her nose.
[2024-08-05] MEDS: ipratropium-albuterol 3 mL Neb INHALATION ×4 (02:58→20:25)
--- NOTE | 2024-08-05 06:46 | PC.NURSE ---
Went in room to round on patient. Patient stated I peed myself waiting on you to get here. Informed patient that her call light was not going off. Patient stated oh. Patient assisted to toilet and assisted into clean brief.
[2024-08-05] MEDS: pantoprazole 40 mg SDV IVP ×2 (09:16→20:40)
[2024-08-05] MEDS: sucralfate 1 gm/10 mL Oral Liq UDC PO ×4 (09:16→20:41)
[2024-08-05] MEDS: levothyroxine 75 mcg Tablet PO (09:17)
[2024-08-05] MEDS: ATORVASTATIN 10 MG TABLET 20 MG PO (09:17)
[2024-08-05] MEDS: ferrous sulfate EC 325 mg Tablet PO (09:18)
[2024-08-05] MEDS: FUROsemide 20 mg Tablet PO (09:18)
[2024-08-05] MEDS: nicotine 7 mg Patch 1 PATCH TRANSDERMA (09:18)
[2024-08-05] MEDS: cefepime 1,000 mg SDV 1000 MG IVP (10:17)
--- NOTE | 2024-08-05 14:30 | PC.PT ---
Patient refused PT due to being too tired, had 02 mask on and was sleeping. Will check back next shift.
[2024-08-05] MEDS: carvedilol 25 mg Tablet PO (15:38)
[2024-08-05] MEDS: acetaminophen 500 mg Tablet PO ×2 (15:38→20:47)
--- NOTE | 2024-08-05 17:52 | P.PN_ITS ---
Subjective 2 Subjective: Patient is much more alert and awake today. This morning she was hypotensive therefore did not get her usual medications. Carvedilol was skipped. By afternoon heart rate is climbing up to 120. Medications: Reviewed: Yes Vitals/I&O/Wt Last Vital Signs Temp 97.4 F L 08/05/24 16:00 Pulse 114 H 08/05/24 16:00 Resp 18 08/05/24 14:00 BP 163/74 08/05/24 16:00 Pulse Ox 97 08/05/24 16:00 O2 Del Method Nasal Cannula 08/05/24 16:00 O2 Flow Rate 2 08/05/24 16:00 FiO2 21 08/05/24 02:45 08/05/24 08/05/24 08/05/24 06:59 14:59 22:59 Intake Total 300 / 780 720 / 720 Balance 300 / 480 720 / 720 Weight last 48 hrs Weight 96.842 kg Weight 97.658 kg Physical Exam 2 Narrative: General: No acute distress, AO x3 HEENT: PERRLA, pupils bilaterally equal and reactive, pallors not present Chest: Normal vesicular breath sounds, no added sounds, equal good air entry bilaterally CVS: S1-S2 regular, no murmurs, no tachycardia, no gallops, no rubs Abdomen: Soft, nontender, no organomegaly, bowel sounds present Neuro: No focal deficits, no facial deformity, AO x3, power 5/5 in all limbs Data 08/04/24 05:31 08/04/24 05:31 Micro: Microbiology 08/03/24 21:42 Urine Culture - Preliminary Urine,Clean Catch Gram Negative Rods 08/04/24 13:36 Occult Blood (FIT) - Final Stool Routine Collection A&P Assessment and plan (1) Aortic stenosis: Qualifiers: Cardiac valve disease etiology: etiology unspecified Qualified Code(s): I35.0 - Nonrheumatic aortic (valve) stenosis (2) Mitral stenosis: Qualifiers: Cardiac valve disease etiology: etiology unspecified Qualified Code(s): I05.0 - Rheumatic mitral stenosis (3) Hypertensive urgency: (4) Hypothyroidism: Qualifiers: Hypothyroidism type: acquired Qualified Code(s): E03.9 - Hypothyroidism, unspecified (5) Morbid obesity with BMI of 40.0-44.9, adult: (6) GERD (gastroesophageal reflux disease): Qualifiers: Esophagitis presence: without esophagitis Qualified Code(s): K21.9 - Gastro-esophageal reflux disease without esophagitis (7) CKD (chronic kidney disease) stage 4, GFR 15-29 ml/min: (8) Chronic progressive renal failure: Qualifiers: Chronic kidney disease stage: stage 5 (GFR < 15) Qualified Code(s): N 18.5 - Chronic kidney disease, stage 5 (9) Anemia in chronic kidney disease (CKD): (10) Iron deficiency anemia, unspecified: (11) Anemia: Qualifiers: Anemia type: unspecified type Qualified Code(s): D64.9 - Anemia, unspecified (12) COPD (chronic obstructive pulmonary disease): Qualifiers: COPD type: unspecified COPD Qualified Code(s): J44.9 - Chronic obstructive pulmonary disease, unspecified (13) JASON on CPAP: Plan Acute on chronic anemia Iron deficiency Required blood transfusion in the past along iron No active sign of GI bleed Not endorsing melanotic stools Continue Protonix and sucralfate Requested 2 unit PRBC Patient seems to have fluid overloaded signs and symptoms we will give her IV Lasix 20 mg Anemia of chronic disease versus hemolysis secondary to moderate Requested LDH, bilirubin level and haptoglobin Chronic kidney disease: Patient is getting her fistula placed in near future, she is getting cardiac clearance, recent stress test negative cardiology has not recommended valve replacement/surgery for now Diastolic CHF exacerbation: Will give her IV Lasix low-dose for now Underlying mitral valve calcification and moderate aortic valve stenosis Uncontrolled hypertension: She needs optimization of antihypertensive regimen Systolic blood pressure at home runs 140s to 150s Dyspnea on exertion is chronic Hypoxia: Requiring 2 L: Presented fluid overload with active wheezing I do believe this is cardiac wheezing, IV Lasix administered along DuoNeb Insomnia: Low-dose trazodone Full code Cardiac diet Sleep apnea noncompliant with CPAP DVT prophylaxis: SCDs 08/03/24: Patient with a h/o CKD and chronic anemia, s/p transfusion of 2PRBC overnight. Hb improved this am at 10.2. Cr higher than baseline of 2.6-3.1. T . bili normal, less likely hemolytic anemia,will check haptoglobin, LDH. Check BNP, D dimer for PE screen. Additional 20mg iv lasix today as hypervolemic. Patient is somnolent and lethargic. Has a h/o sleep apnea but has not been using CPAP recently as she did not bring it from her camper to inside the house where she now resides. Obtained ABG which showed respiratory acidosis with hypercapnea and hypoxia. To be placed on BIpap for hypercapnea. CPAP ordered for night time use. Potentially hypercapnea may be contributing to somnolence currently. Medication list reconciled. Trazodone dose decreased last night to 25mg daily. Resume home dose of levothyroxine. Check TSH with am labs 08/04/24 : Parient is more awake and alert today. Bipap use with improvement in ABG. Hypecapnea and resp acidosis resolved. Cpap use at night time. UA + WBC and leukocyte esterase, start cefepime renally dosed. await urine cx. August 05, 2024 Patient is awake and alert today. Less lethargic. He used BiPAP overnight. Urine culture showing gram-negative rods, identification and susceptibility expected to be back by tomorrow. She was hypotensive this morning therefore amlodipine, carvedilol and hydralazine has been held. Currently heart rate is 122. Blood pressure is improved at 130 systolic. Going forward holding amlodipine for now. Reduce hydralazine dose to 25 3 times daily as needed. Continue carvedilol 25 mg every 12 hours. Dose to be administered now. Disposition planning PDMP PDMP Reviewed: Not Reviewed Attestations 2 Medical Necessity Statement*: Awaiting urine culture, tachycardic heart rate 120s today. Hypotensive earlier this morning. Needs adjustment of antihypertensive regimen Coding Level of Care Code Acute Code for Chg Fwd Diagnoses Aortic stenosis I35.0 Cardiac valve disease etiology: etiology unspecified Mitral valve stenosis, unspecified etiology I05.0 Cardiac valve disease etiology: etiology unspecified Hypertensive urgency I16.0 Acquired hypothyroidism E03.9 Hypothyroidism type: acquired Morbid obesity with BMI of 40.0-44.9, adult E66.01; Z68.41 Gastroesophageal reflux disease without esophagitis K21.9 Esophagitis presence: without esophagitis CKD (chronic kidney disease) stage 4, GFR 15-29 ml/min N18.4 Chronic progressive renal failure N18.5 Chronic kidney disease stage: stage 5 (GFR < 15) Anemia in chronic kidney disease (CKD) N18.9; D63.1 Iron deficiency anemia, unspecified D50.9 Anemia, unspecified type D64.9 Anemia type: unspecified type Chronic obstructive pulmonary disease, unspecified COPD type J44.9 COPD type: unspecified COPD JASON on CPAP G47.33; Z99.89
[2024-08-05] MEDS: trazodone 50 mg Tablet 25 MG PO (20:41)
[2024-08-06] VITALS (8 sets, daily range): BP systolic 138–150; BP diastolic 62–73; PULSE 68–104; RESP 16–22; TEMP 36.4–36.6; O2SAT 92–98
[2024-08-06] MEDS: acetaminophen 500 mg Tablet PO ×2 (02:05→11:18)
[2024-08-06] MEDS: ipratropium-albuterol 3 mL Neb INHALATION ×3 (02:47→14:57)
[2024-08-06] MEDS: carvedilol 25 mg Tablet PO (03:17)
[2024-08-06 04:56] LABS: Basophils # 0.1 10^3/uL (0.0-0.1); Basophils % 0.9 %; Eosinophils # 0.4 10^3/uL (0.0-0.8); Eosinophils % 6.6 %; Hematocrit 29.8 % (36-47); Lymphocytes % 15.2 %; Mean Corpuscular HGB Conc 30.9 g/dL (30-55); Mean Corpuscular Hemoglobin 29.6 pg (27-33); Mean Corpuscular Volume 95.8 fl (85-98); Mean Platelet Volume 10.8 fL (7.4-10.4); Monocytes # 0.9 10^3/uL (0.2-0.9); Monocytes % 13.1 %; Neutrophils # 4.24 10^3/uL (1.8-7.7); Neutrophils % 63.9 %; Nucleated Red Blood Cells % 0 %; Platelet Count 198 10^3/cmm (157-399); Red Blood Count 3.11 10^6/uL (3.85-5.65); Red Cell Distribution Width 14.8 % (12.1-15.1); White Blood Count 6.64 10^3/uL (3.29-11.43)
[2024-08-06 05:20] LABS: Alanine Aminotransferase < 5 U/L (0-33); Albumin Level 3.1 g/dL (3.5-5.2); Alkaline Phosphatase 60 U/L (35-105); Anion Gap 18.1 (5-19); Aspartate Amino Transferase 7 U/L (0-32); Blood Urea Nitrogen 39 mg/dL (8-23); Carbon Dioxide 20 mmol/L (22-29); Chloride 102 mmol/L (98-107); Globulin 3.5 g/dL (1.3-4.6); Glucose 97 mg/dL (65-115); Osmolality Calculated 291 mOsm/kg (285-295); Potassium 4.1 mmol/L (3.5-5.1); Sodium 136 mmol/L (136-145); Total Bilirubin 0.3 mg/dL (0.15-1.2); Total Protein 6.6 g/dL (6.6-8.7)
[2024-08-06] MEDS: sucralfate 1 gm/10 mL Oral Liq UDC PO ×2 (06:53→11:18)
[2024-08-06] MEDS: ondansetron 2 mg/ML SDV 2 mL 4 MG IVP (07:07)
[2024-08-06] MEDS: FUROsemide 20 mg Tablet PO (07:47)
[2024-08-06] MEDS: ATORVASTATIN 10 MG TABLET 20 MG PO (10:12)
[2024-08-06] MEDS: levothyroxine 75 mcg Tablet PO (10:12)
[2024-08-06] MEDS: ferrous sulfate EC 325 mg Tablet PO (10:12)
[2024-08-06] MEDS: nicotine 7 mg Patch 1 PATCH TRANSDERMA (10:12)
[2024-08-06] MEDS: pantoprazole 40 mg SDV IVP (10:13)
[2024-08-06] MEDS: cefepime 1,000 mg SDV 1000 MG IVP (10:13)
[2024-08-06] MEDS: ertapenem 1,000 mg SDV 1000 MG IVP (13:19)
--- NOTE | 2024-08-09 10:30 | PM.DCS ---
Discharge Providers Date of Admission: 08/03/24 15:52 Date of Discharge: August 09, 2024 Attending Provider at Admission: Reinaldo Arce MD Attending Provider at Discharge: Pilar Reid MD Primary Care Provider: Laura Lee MD Diagnoses at Discharge Discharge Diagnosis (1) Aortic stenosis: Status: Chronic Qualifiers: Cardiac valve disease etiology: etiology unspecified Qualified Code(s): I35.0 - Nonrheumatic aortic (valve) stenosis Permanent problem details: sees cardio (2) Mitral stenosis: Status: Acute Qualifiers: Cardiac valve disease etiology: etiology unspecified Qualified Code(s): I05.0 - Rheumatic mitral stenosis (3) Hypertensive urgency: Status: Acute (4) Hypothyroidism: Status: Chronic Qualifiers: Hypothyroidism type: acquired Qualified Code(s): E03.9 - Hypothyroidism, unspecified (5) Morbid obesity with BMI of 40.0-44.9, adult: Status: Acute (6) GERD (gastroesophageal reflux disease): Status: Chronic Qualifiers: Esophagitis presence: without esophagitis Qualified Code(s): K21.9 - Gastro-esophageal reflux disease without esophagitis (7) CKD (chronic kidney disease) stage 4, GFR 15-29 ml/min: Status: Chronic Permanent problem details: seeing industrial hygiene technician (8) Chronic progressive renal failure: Status: Acute Qualifiers: Chronic kidney disease stage: stage 5 (GFR < 15) Qualified Code(s): N18.5 - Chronic kidney disease, stage 5 (9) Anemia in chronic kidney disease (CKD): Status: Chronic (10) Iron deficiency anemia, unspecified: Status: Acute (11) Anemia: Status: Chronic Qualifiers: Anemia type: unspecified type Qualified Code(s): D64.9 - Anemia, unspecified (12) COPD (chronic obstructive pulmonary disease): Status: Chronic Qualifiers: COPD type: unspecified COPD Qualified Code(s): J44.9 - Chronic obstructive pulmonary disease, unspecified (13) JASON on CPAP: Status: Acute Reason for Visit Reason for Visit: abnormal labs Hospital Course Hospital Course Mahnaz Magallanes is a 78 year old female with chronic history of iron deficiency anemia, in the past required iron transfusion, blood transfusions, moderate to severe aortic stenosis, chronic kidney disease, getting cardiac clearance to get a fistula placed in near future, presenting from home for worsening of generalized weakness and fatigue along shortness of breath. She received transfusion with 2 packed red blood cells on August 04, 2024. Hemoglobin improved and plateaued between 9-10. Creatinine was noted to be higher than baseline. She received IV Lasix as she was clinically hypervolemic. Patient additionally had a history of sleep apnea but had not been using her CPAP. ABG showed respiratory acidosis with hypercapnia and hypoxia. This improved significantly after being placed on on CPAP and encourage compliance for nighttime use. She had complained of some dysuria and urine culture was obtained which shows gram-negative rods which were eventually identified to be ESBL E. coli. Patient had been on treatment with ceftriaxone which was transitioned to meropenem with recovery of these cultures. At discharge she was transitioned to ertapenem 1 g IV every 24 hours to complete total 5 days of treatment As guided by susceptibility testing. Antibiotics were arranged at the infusion center Physical Exam Narrative: General: No acute distress, AO x3 HEENT: PERRLA, pupils bilaterally equal and reactive, pallors not present Chest: Normal vesicular breath sounds, no added sounds, equal good air entry bilaterally CVS: S1-S2 regular, no murmurs, no tachycardia, no gallops, no rubs Abdomen: Soft, nontender, no organomegaly, bowel sounds present Neuro: No focal deficits, no facial deformity, AO x3, power 5/5 in all limbs Discharge Data Studies Completed and Pending Completed Studies During Hospitalization Category [place] [id number] Routine Ultrasound 08/03/24 18:50 Completed US renal BI* [id number] Routine Ultrasound 08/04/24 09:53 Completed Radiology Impressions Renal Ultrasound 08/04/24 09:53 IMPRESSION: 1. Atrophied kidneys with medical renal disease, rfecm-ozzsmxm-sewe-left. 2. No hydronephrosis. Left ureteral jet visualized. Nonvisualization of the right ureteral jet. 3. Grossly stable appearance of the bilateral renal cysts. Laboratory Results WBC 6.64 10^3/uL (3.29-11.43) 08/06/24 04:35 RBC 3.11 10^6/uL (3.85-5.65) L 08/06/24 04:35 Hgb 9.20 g/dL (11.27-16.99) L 08/06/24 04:35 Hct 29.8 % (36-47) L 08/06/24 04:35 MCV 95.8 fl (85-98) 08/06/24 04:35 MCH 29.6 pg (27-33) 08/06/24 04:35 MCHC 30.9 g/dL (30-55) 08/06/24 04:35 RDW 14.8 % (12.1-15.1) 08/06/24 04:35 Plt Count 198 10^3/cmm (157-399) 08/06/24 04:35 MPV 10.8 fL (7.4-10.4) H 08/06/24 04:35 Neut % (Auto) 63.9 % 08/06/24 04:35 Lymph % (Auto) 15.2 % 08/06/24 04:35 [place] % (Auto) 13.1 % 08/06/24 04:35 Eos % (Auto) 6.6 % 08/06/24 04:35 Baso % (Auto) 0.9 % 08/06/24 04:35 Neut # (Auto) 4.24 10^3/uL (1.8-7.7) 08/06/24 04:35 Lymph # (Auto) 1.0 10^3/uL (0.8-4.8) 08/06/24 04:35 [place] # (Auto) 0.9 10^3/uL (0.2-0.9) 08/06/24 04:35 Eos # (Auto) 0.4 10^3/uL (0.0-0.8) 08/06/24 04:35 Baso # (Auto) 0.1 10^3/uL (0.0-0.1) 08/06/24 04:35 Nucleated RBC % (auto) 0 % 08/06/24 04:35 Nucleated RBCs # 0.0 /100WBC 08/06/24 04:35 D-Dimer 2.87 ug/mLFEU (0-0.59) H 08/03/24 16:37 Specimen Type Arterial 08/03/24 20:00 Sample Site Radial, right 08/03/24 20:00 ABG pH 7.32 (7.35-7.45) L 08/03/24 20:00 ABG pCO2 44.8 mmHg (35-45) 08/03/24 20:00 ABG pO2 77.4 mmHg (80.0-100.0) L 08/03/24 20:00 ABG HCO3 23.2 mmol/L (22-26) 08/03/24 20:00 ABG Base Excess -2.9 mmol/L (-2.0-2.0) L 08/03/24 20:00 Herrera Test Pos 08/03/24 20:00 Hematocrit 32.2 % (37-47) L 08/03/24 20:00 O2 Delivery Device Nc 08/03/24 20:00 O2 Liters/Min 2.0 % 08/03/24 20:00 Recreational Resort Manager ID [email or web address] 08/03/24 20:00 Sodium 136 mmol/L (136-145) 08/06/24 04:35 Potassium 4.1 mmol/L (3.5-5.1) 08/06/24 04:35 Chloride 102 mmol/L (98-107) 08/06/24 04:35 Carbon Dioxide 20 mmol/L (22-29) L 08/06/24 04:35 Anion Gap 18.1 (5-19) 08/06/24 04:35 BUN 39 mg/dL (8-23) H 08/06/24 04:35 Creatinine 3.5 mg/dL (0.5-0.9) H 08/06/24 04:35 GFR Calculation Not Reportable 08/06/24 04:35 Glucose 97 mg/dL (65-115) 08/06/24 04:35 Calculated Osmolality 291 mOsm/kg (285-295) 08/06/24 04:35 Calcium 9.0 mg/dL (8.5-10.5) 08/06/24 04:35 Magnesium 1.9 mg/dL (1.7-2.3) 08/03/24 05:30 Total Bilirubin 0.3 mg/dL (0.15-1.2) 08/06/24 04:35 AST 7 U/L (0-32) 08/06/24 04:35 ALT < 5 U/L (0-33) 08/06/24 04:35 Alkaline Phosphatase 60 U/L (35-105) 08/06/24 04:35 Troponin T 5th Gen ng/L 16 ng/L (0-10) H 08/03/24 16:37 NT-Pro-B Natriuret Pep 6576 pg/mL (0-450) H 08/03/24 16:37 Total Protein 6.6 g/dL (6.6-8.7) 08/06/24 04:35 Albumin 3.1 g/dL (3.5-5.2) L 08/06/24 04:35 Globulin 3.5 g/dL (1.3-4.6) 08/06/24 04:35 TSH 2.73 uIU/mL (0.27-4.20) 08/04/24 05:31 Urine Color Yellow (Yellow) 08/03/24 21:42 Urine Appearance Cloudy (CLEAR) A 08/03/24 21: Urine pH 6.0 (5-7) 08/03/24 21:42 Ur Specific [place] 1.005 (1.005-1.030) 08/03/24 21:42 Urine Protein 2+ (Negative) A 08/03/24 21:42 Urine Glucose (UA) Negative (Normal) 08/03/24 21:42 Urine Ketones Negative (Negative) 08/03/24 21:42 Urine Blood Negative (Negative) 08/03/24 21:42 Urine Nitrate Negative (Negative) 08/03/24 21:42 Urine Bilirubin Negative (Negative) 08/03/24 21:42 Urine Urobilinogen 0.2 mg/dL (Negative) 08/03/24 21:42 Ur Leukocyte Esterase 3+ (Negative) A 08/03/24 21:42 Urine RBC 0-2 /hpf (0-2) 08/03/24 21:42 Urine WBC >100 /hpf (0-5) H 08/03/24 21:42 Ur Squamous Epith Cells 0-5 /hpf (0-5) 08/03/24 21:42 Amorphous Sediment Not Reportable 08/03/24 21:42 Urine Bacteria 4+ /hpf (NONE) H 08/03/24 21:42 Hyaline Casts 0.40 /lpf 08/03/24 21:42 Blood Type O Positive 08/02/24 18:00 Rho(D) Type Rh positive 08/02/24 18:00 Antibody Screen Negative 08/02/24 18:00 Crossmatch See Detail 08/02/24 18:00 Vitals Last Vital Signs Temp 97.5 F L 08/06/24 14:57 Pulse 73 03/23/25 14:57 Resp 18 08/06/24 14:57 BP 138/62 08/06/24 14:57 Pulse Ox 95 08/06/24 14:57 O2 Del Method Nasal Cannula 08/06/24 14:00 O2 Flow Rate 2 08/06/24 14:00 FiO2 21 08/05/24 02:45 Discharge Plan Discharge Patient Disposition: Home Condition: Stable Prescriptions: New fluticasone propion-salmeterol [Advair Diskus] 500-50 mcg/dose blister with device 1 inh inhalation BID Qty: 60 0RF Continued multivitamin Tablet 1 tab PO DAILY@1000 acetaminophen [Tylenol Extra Strength] 500 mg tablet 500 mg PO Q6H PRN (Reason: Pain) (DME) AFO See Rx Instructions .Route .MEDSUPPLY Qty: 1 0RF Rx Instructions: As directed LAURA&O fluticasone propionate 50 mcg/actuation spray,suspension 1 spray intranasal BID Qty: 16 0RF Rx Instructions: administer into each nostril nitroglycerin 0.4 mg tablet, sublingual 0.4 mg SUBLINGUAL Q5M PRN (Reason: Chest Pain) Qty: 20 3RF Rx Instructions: do not exceed 3 doses per episode aspirin 81 mg tablet,delayed release (DR/EC) 81 mg PO DAILY@1000 omega 1-xwt-msb-fish oil [Fish Oil] 300-1,000 mg Capsule 1 cap PO DAILY levothyroxine 75 mcg tablet 75 mcg PO DAILY Discontinued Atrovent HFA 17 mcg/actuation HFA aerosol inhaler 1 puff inhalation QID PRN (Reason: Shortness Of Breath Or Wheezing) Qty: 51 1RF furosemide [Lasix] 40 mg tablet 40 mg PO DAILY PRN (Reason: weight gain) Qty: 14 0RF No Action valsartan 40 mg tablet 40 mg PO DAILY atorvastatin [Lipitor] 10 mg tablet 10 mg PO DAILY Qty: 90 3RF amlodipine 10 mg tablet 10 mg PO DAILY Qty: 90 3RF furosemide 20 mg tablet 20 mg PO DAILY Qty: 90 1RF hydralazine 100 mg tablet 100 mg PO TID Qty: 270 3RF duloxetine 20 mg capsule,delayed release(DR/EC) 40 mg PO QAM cholecalciferol (vitamin D3) 50 mcg (2,000 unit) capsule 50 mcg PO DAILY Qty: 90 0RF carvedilol 25 mg tablet 25 mg PO BID Qty: 200 3RF Rx Instructions: must administer with a meal/food cetirizine [Zyrtec] 10 mg Tablet 10 mg PO DAILY pantoprazole [Protonix] 40 mg Tablet,Delayed Release (Dr/Ec) 40 mg PO BID aripiprazole [Abilify] 5 mg Tablet 5 mg PO DAILY trazodone 50 mg tablet 50 mg PO BEDTIME Rx Instructions: TAKE 1 TABLET BY MOUTH AT BEDTIME Discharge Orders: Discharge Order (Routine); Ordered 08/06/24 Ordered By: Pilar Reid Other Ambulatory Orders: DME: Oxygen (Order) Location: None Selected Ordered By: Pilar Reid DME: Wheelchair (Order) Location: None Selected Ordered By: Pilar Reid Referrals: [facility] ([facility]) [Outside] Laura Lee MD [Primary Care Provider] - 1 week (We have notified your physician's clinic of the need for a follow-up appointment to be scheduled. If you have not heard from them within the next 2 business days, please call them directly. ) Elda Cody FNP [Nurse Practitioner] - 7-10 days (We have notified your physician's clinic of the need for a follow-up appointment to be scheduled. If you have not heard from them within the next 2 business days, please call them directly. ) Discharge Diet: Usual diet Discharge Activity: Resume usual activity Patient Instructions: Albuterol (By breathing), Fluticasone/Salmeterol (By breathing), Tiotropium (By breathing), Heart Failure (DC), Aortic Stenosis (DC), Acute Kidney Injury (DC), Urinary Tract Infection in Women (DC), Anemia (DC), Opioid Safety Discharge Attestations Time Spent in Discharge Care*: greater than 30 min Status at Discharge: Cognitive status at discharge: mildly impaired cognition, Behavioral status at discharge: cooperative, Quality Metrics Clinical Quality Measures [ No reported AMI, CVA or VTE this stay] Coding Level of Care Code Acute Code for Chg Fwd Diagnoses Aortic stenosis I35.0 Cardiac valve disease etiology: etiology unspecified Mitral valve stenosis, unspecified etiology I05.0 Cardiac valve disease etiology: etiology unspecified Hypertensive urgency I16.0 Acquired hypothyroidism E03.9 Hypothyroidism type: acquired Morbid obesity with BMI of 40.0-44.9, adult E66.01; Z68.41 Gastroesophageal reflux disease without esophagitis K21.9 Esophagitis presence: without esophagitis CKD (chronic kidney disease) stage 4, GFR 15-29 ml/min N18.4 Chronic progressive renal failure N18.5 Chronic kidney disease stage: stage 5 (GFR < 15) Anemia in chronic kidney disease (CKD) N18.9; D63.1 Iron deficiency anemia, unspecified D50.9 Anemia, unspecified type D64.9 Anemia type: unspecified type Chronic obstructive pulmonary disease, unspecified COPD type J44.9 COPD type: unspecified COPD JASON on CPAP G47.33; Z99.89
== END 2024-08-06 15:41 | disposition home or self-care (01) ==
LOC: ER 19:44 → MEDSURG 20:25
PROVIDERS: Admitting Provider Internal Medicine; Emergency Provider Emergency Medicine; PCP Family Medicine; Visit Provider Student in an Organized Health Care Education/Training Program
DX: I35.0 Nonrheumatic aortic (valve) stenosis (principal); I05.0 Rheumatic mitral stenosis; E03.9 Hypothyroidism, unspecified; E66.01 Morbid (severe) obesity due to excess calories; Z68.41 Body mass index [BMI] 40.0-44.9, adult; K21.9 Gastro-esophageal reflux disease without esophagitis; I12.0 Hypertensive chronic kidney disease with stage 5 chronic kidney disease or end stage renal disease; N18.5 Chronic kidney disease, stage 5; D63.1 Anemia in chronic kidney disease; J44.9 Chronic obstructive pulmonary disease, unspecified; G47.33 Obstructive sleep apnea (adult) (pediatric); Z99.89 Dependence on other enabling machines and devices; Z79.82 Long term (current) use of aspirin; I95.9 Hypotension, unspecified; Z86.73 Personal history of transient ischemic attack (TIA), and cerebral infarction without residual deficits; I73.9 Peripheral vascular disease, unspecified; I25.2 Old myocardial infarction; I71.40 Abdominal aortic aneurysm, without rupture, unspecified; M79.7 Fibromyalgia; M06.9 Rheumatoid arthritis, unspecified; F17.290 Nicotine dependence, other tobacco product, uncomplicated; Z82.49 Family history of ischemic heart disease and other diseases of the circulatory system
CPT/HCPCS: 36415; 36430; 36600; 76770; 80048; 80053; 81001; 82274; 82803; 83735; 83880; 84443; 84484; 85025; 85378; 86850; 86900; 86920; 87070; 87077; 87086; 87186; 87205; 93970; 94640; 94660; 94760; 94762; 97110; 97116; 97162; 97165; G0378; J0692; J1335; J1940; J2405; J2470; J9999; P9016

== ENCOUNTER 2024-08-10 08:30 | Oncology outpatient (recurring) (ONCR) | payer MEDICARE, MEDICAID, SELFPAY ==
[2024-08-07 14:47] VITALS: BP 138/73; PULSE 71; TEMP 36.1; O2SAT 96
[2024-08-07] MEDS: ertapenem 1,000 mg SDV 1000 MG IVP (14:52)
[2024-08-08] MEDS: ertapenem 1,000 mg SDV 1000 MG IVP (14:03)
[2024-08-09 14:15] VITALS: BP 124/52; PULSE 77; RESP 16; TEMP 36.2; O2SAT 95
[2024-08-09] MEDS: ertapenem 1,000 mg SDV 1000 MG IVP (14:25)
[2024-08-10] MEDS: ertapenem 1,000 mg SDV 1000 MG IVP (09:04)
[2024-08-10 14:44] LABS: Hepatitis A Antibody IgM Non-Reactive (Nonreactive); Hepatitis B Core IgM Non-Reactive (Nonreactive); Hepatitis B Surface Antigen Non-Reactive (Nonreactive); Hepatitis C Virus Antibody Non-Reactive (Nonreactive)
== END 2024-08-14 23:59 | disposition home or self-care (01) ==
PROVIDERS: PCP Family Medicine; Visit Provider Internal Medicine Nephrology
DX: Z53.9 Procedure and treatment not carried out, unspecified reason (principal); N39.0 Urinary tract infection, site not specified; Z79.899 Other long term (current) drug therapy; R53.83 Other fatigue
CPT/HCPCS: 36415; 80074; 96374; 96375; 99203; J1335

== ENCOUNTER 2024-08-14 11:12 | Day surgery (SDC) | payer MEDICARE, MEDICAID, SELFPAY ==
[2024-08-14] VITALS (10 sets, daily range): BP systolic 133–177; BP diastolic 49–97; PULSE 74–85; RESP 20–25; TEMP 36.1–36.6; O2SAT 90–97; BMI 40.4
--- NOTE | 2024-08-14 11:37 | W.PM.OPSUD ---
Surgery/Procedure H&P Update DATE OF PROCEDURE: August 14, 2024 DATE H&P PERFORMED: 08/10/24 H&P UPDATE INFORMATION: I have reviewed H&P completed within last 30 days, I have examined patient prior to procedure, No changes to prior documentation, Changes to prior documentation as noted here and Risks and benefits of the procedure reviewed PLANNED PROCEDURE: Operation Date: 08/14/24 12:55 Proposed Procedures p tunneled dialysis catheter(Not Applicable) - Fortino Leigh MD
[2024-08-14] MEDS: sodium chloride 0.9% 1,000 ML 30 ML IV (11:57)
--- NOTE | 2024-08-14 12:20 | ANES.PREANE2 ---
Pre-Anesthetic Assessment Height/Weight: Height 1.55 m Weight 97.069 kg Temp Pulse Resp BP Pulse Ox O2 Del Method O2 Flow Rate 97 F L 74 20 H 177/97 96 Nasal Cannula 2 08/14/24 11:31 08/14/24 11:31 08/14/24 11:31 08/14/24 11:31 08/14/24 11:31 08/14/24 12:03 08/14/24 12:03 Operation Date: 08/14/24 12:55 Proposed Procedures p tunneled dialysis catheter(Not Applicable) - Fortino Leigh MD Familial anesthetic complications: None Was Beta Leidy taken within 24 hours: N/A Was Clonidine taken within 24 hours: N/A Last intake: Intake Last Liquid Date 08/13/24 Last Liquid Time 21:00 Last Solid Date 08/13/24 Last Solid Time 19:30 Social Tobacco (vapes) Exam alert and oriented x 3 Pulmonary Chronic Obstructive Pulmonary Disease and Sleep Apnea CV/HEM Arrythmia (a fib on holter), Coronary Artery Disease, Hypertension, Myocardial Infarction and Peripheral Vascular Disease Mild mitral stenosis, moderate aortic stenosis Metabolic Hyperlipidemia, Morbid Obesity and Thyroid Disease secondary hyperPTH [facility] Rheumatoid Arthritis Neuropsych Cerebrovascular Accident Anesthetic Plan ASA status: 4 Anesthesia: MAC Other: Patient informed of higher risk complications from anesthesia d/t baseline comorbidities; Educated patient that she may be more likely to experience reccall d/t need for gel coat sprayer sedation Risk of > 500 ml blood loss (7ml/kg in children): No Medications/Allergies Home Medications ?Medication ?Instructions ?Recorded ?Confirmed ?Last Taken ?Type multivitamin 1 tab PO DAILY@1000 09/05/20 08/11/24 08/13/24 History acetaminophen 500 mg tablet 500 mg PO Q6H PRN Pain 09/17/20 08/11/24 08/10/24 History (Tylenol Extra Strength) aspirin 81 mg tablet,delayed 81 mg PO DAILY@1000 11/01/20 08/11/24 08/10/24 History release AFO #1 ea 02/20/21 08/10/24 Unknown Rx nitroglycerin 0.4 mg sublingual 0.4 mg sublingual Q5M PRN Chest 07/21/22 08/11/24 Unknown Rx tablet Pain #20 tabs ferrous sulfate 325 mg (65 mg 325 mg PO DAILY 1208/11/24 08/13/24 History iron) tablet (Iron (ferrous sulfate)) levothyroxine 75 mcg tablet 75 mcg PO DAILY 04/30/24 08/11/24 08/14/24 09:00 History omega 9-qib-qhf-fish oil 300 1 cap PO DAILY 04/30/24 08/11/24 05/29/24 History mg-1,000 mg capsule (Fish Oil) carvedilol 25 mg tablet 25 mg PO BID #180 tabs 05/30/24 08/11/24 08/14/24 09:00 Rx fluticasone propionate 50 1 spray intranasal BID #16 grams 05/30/24 08/11/24 Unknown Rx mcg/actuation nasal spray,suspension hydralazine 100 mg tablet 100 mg PO TID #270 tabs 05/30/24 08/11/24 08/14/24 09:00 Rx rosuvastatin 5 mg tablet 5 mg PO DAILY #100 tabs 06/01/24 08/11/24 08/13/24 Rx albuterol sulfate 90 mcg/actuation 1 inh inhalation Q6H PRN shortness 08/06/24 08/11/24 08/14/24 09:00 Rx breath activated powder inhaler of breath or wheezing 30 days #1 ea fluticasone 500 mcg-salmeterol 50 1 inh inhalation BID #60 ea 08/06/24 08/11/24 08/14/24 09:00 Rx mcg/dose blistr powdr for inhalation (Advair Diskus) furosemide 40 mg tablet (Lasix) 20 mg (1/2 x 40 mg) PO DAILY 08/06/24 08/11/24 08/13/24 Rx weight gain #14 tabs tiotropium bromide 18 mcg capsule 1 cap inhalation DAILY 30 days #30 08/06/24 08/11/24 08/14/24 09:00 Rx with inhalation device (Spiriva inhalations with HandiHaler) aripiprazole 5 mg tablet (Abilify) 5 mg PO DAILY 08/11/24 08/11/24 08/11/24 History cetirizine 10 mg tablet (Zyrtec) 10 mg PO DAILY 08/11/24 08/11/24 08/13/24 History duloxetine 20 mg capsule,delayed 20 mg PO QAM 08/11/24 08/11/24 08/13/24 History release pantoprazole 40 mg tablet,delayed 40 mg PO BID 08/11/24 08/11/24 08/14/24 09:00 History release (Protonix) trazodone 50 mg tablet 50 mg PO BEDTIME 08/11/24 08/11/24 08/13/24 History Allergies Allergy/AdvReac Type Severity Reaction Status Date / Time diphenhydramine Allergy Severe ALGY-Difficulty Verified 08/10/24 13:06 Breathing famotidine (From Pepcid) Allergy Severe ALGY-Difficulty Verified 08/10/24 13:06 Breathing omeprazole (From Prilosec) Allergy Severe ALGY-Difficulty Verified 08/10/24 13:06 Breathing ranitidine Allergy Severe ALGY-Difficulty Verified 08/10/24 13:06 Breathing Sulfa (Sulfonamide Allergy Intermediate Hives Verified 08/10/24 13:06 Antibiotics) Amoxicillin Allergy Mild Rash Uncoded 08/10/24 13:06 tramadol AdvReac Mild Mental Uncoded 08/10/24 13:06 status changes Current Medications Generic Name Dose Route Start Last Admin Trade Name Freq PRN Reason Stop Dose Admin Sodium Chloride 1,000 mls @ 30 mls/hr 08/14/24 11:30 08/14/24 11:57 Sodium Chloride 0.9% IV 08/15/24 11:29 30 mls/hr .Q24H BRIA Administration PFSH Anesthesia Medical History History of lacunar cerebrovascular accident (CVA) on CT Mitral stenosis Secondary hyperparathyroidism Aortic stenosis Anxiety and depression Panic attacks & Long hx of depression, on Cymbalta > 10 years. CKD (chronic kidney disease) stage 4, GFR 15-29 ml/min seeing fisher trap Morbid obesity with BMI of 40.0-44.9, adult JASON on CPAP Constipation by delayed colonic transit Osteoarthritis of both knees Ankle and foot deformity, acquired Anemia in chronic kidney disease (CKD) iron def; PAD (peripheral artery disease) Mixed incontinence AAA (abdominal aortic aneurysm) GERD (gastroesophageal reflux disease) COPD (chronic obstructive pulmonary disease) CAD (coronary artery disease) HTN (hypertension) Hx of myocardial infarction Hyperlipidemia Hypothyroidism Fibromyalgia Rheumatoid arthritis Surgical History History of arthroscopy of right shoulder Hx of hysterectomy ovaries remaining; done for female problems, no cancer History of bilateral cataract extraction Hx of cholecystectomy History of hip replacement Right Family History Father , AT 40 Cancer Mother , AT AGE 76 Cancer Heart disease Other CAD (coronary artery disease) Diabetes Social History Smoking and tobacco/nicotine status: current every day tobacco/nicotine user e-cigarettes E-Cigarette Details: vaporizer device Alcohol intake: current Alcohol intake frequency: holidays/special occasions only Substance/Drug Use: never Household members: other Details: lives with daughter 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
--- NOTE | 2024-08-14 12:30 | SC_ITS ---
WS: [id number] C-arm FL for CVA [id number] REASON FOR EXAM: DIALYSIS CATH FINDINGS: Right IJ dual-lumen dialysis catheter placement. The tip appears to be near the atrial level in the distal SVC. There is cardiomegaly. No pneumothorax is identified. SC/C-arm FL for CVA [id number] IMPRESSION: Right internal jugular dialysis catheter placement as above.
[2024-08-14] MEDS: clindamycin 600 MG/50 ML PREMIX IV (13:00)
[2024-08-14 13:01] LABS: Basophils # 0.1 10^3/uL (0.0-0.1); Basophils % 0.5 %; Eosinophils # 0.1 10^3/uL (0.0-0.8); Hematocrit 29.9 % (36-47); Lymphocytes # 0.8 10^3/uL (0.8-4.8); Lymphocytes % 5.8 %; Mean Corpuscular HGB Conc 31.1 g/dL (30-55); Mean Corpuscular Hemoglobin 29.2 pg (27-33); Mean Corpuscular Volume 93.7 fl (85-98); Mean Platelet Volume 11.1 fL (7.4-10.4); Monocytes # 1.2 10^3/uL (0.2-0.9); Monocytes % 9.1 %; Neutrophils # 10.71 10^3/uL (1.8-7.7); Neutrophils % 83.2 %; Nucleated Red Blood Cells % 0 %; Platelet Count 191 10^3/cmm (157-399); Red Blood Count 3.19 10^6/uL (3.85-5.65); Red Cell Distribution Width 14.1 % (12.1-15.1); White Blood Count 12.88 10^3/uL (3.29-11.43)
[2024-08-14] MEDS: lidocaine-epi 1% 20 mL INJ INJECTION (13:02)
[2024-08-14] MEDS: heparin, porcine 1,000 unit/mL INJ 10 mL 10000 UNIT IRRIGATION (13:02)
[2024-08-14 13:16] LABS: Blood Urea Nitrogen 43 mg/dL (8-23); Calcium 8.8 mg/dL (8.5-10.5); Carbon Dioxide 23 mmol/L (22-29); Chloride 99 mmol/L (98-107); Glucose 100 mg/dL (65-115); Osmolality Calculated 293 mOsm/kg (285-295); Sodium 136 mmol/L (136-145)
--- NOTE | 2024-08-14 13:21 | XR_ITS ---
WS: [id number] XR chest 1V portable [id number] REASON FOR EXAM: tunneled dialysis catheter FINDINGS: Right internal jugular dual-lumen dialysis catheter with the tip of the catheter in the distal SVC at the atrial level. Cardiomegaly. Central pulmonary venous congestion. XR/XR chest 1V portable [id number] IMPRESSION: Properly positioned right internal jugular vein dialysis catheter. Cardiomegaly and central pulmonary venous congestion.
--- NOTE | 2024-08-14 14:03 | PM.OP ---
Operative Report Date of procedure: August 14, 2024 Pre-op diagnosis: End-stage renal disease Post-op diagnosis: Same Post-op findings: Normal vascular anatomy of the right IJ Procedure done: Insertion of right IJ tunneled dialysis catheter Implants: 23 cm cuff to tip dialysis catheter Specimens removed/disposition: None Surgeon: Fortino Leigh MD Car Cooper: CAROLYN OR STaff Estimated blood loss: 5 Complications: none Brief History: 78-year-old female with end-stage renal disease requiring dialysis, she presents for tunnel dialysis catheter placement. Procedure: Patient was brought into the OR, she was placed in a supine position, moderate anesthesia sedation was given. Timeout was conducted after the skin was prepped and draped in the usual sterile fashion. I then proceeded to identify the right IJ vein with ultrasound, I infiltrated local anesthesia on top of the vein. I then proceeded to cannulate the vein under direct ultrasound guidance using an 18-gauge needle, the needle tip was seen entering the vein and immediate return of blood was noted. A wire was advanced through the needle and the needle was removed. The position of the wire was verified with ultrasound and fluoroscopy. The wire was then fixed to the drapes. I then placed my attention to the chest, local anesthesia was infiltrated in the previously marked area on the chest and then a tract connecting the chest to the wire insertion site in the neck. I then proceeded to make a 0.5cm incision on the chest and a 0.5cm incision on the neck at the level of the wire insertion site. I then Tunneled the catheter from the chest wound to the neck using the provider tunneler. the vein was then dilatated with serial sizes of dilatators under direct fluoro guidance. I then proceeded to insert an introducer with a peel-off sheath over the wire under direct fluoroscopic guidance. I then remove the wire and the introducer leaving the peel-off sheath in place. The catheter was then advanced through the peel-off sheath and the peel-off sheath was removed leaving the catheter in place. Fluoroscopy showed evidence of good catheter position. The catheter was tested and was working fine with good flow in both lumens. I then proceeded to fix the catheter with #2-0 nylon to the skin. I then closed the neck wound with #3-0 Vicryl. The catheter was tested once again and was working fine I then Locked the catheter. Dermabond was applied over the wound and a sterile dressing was applied on top. At the end of the procedure all counts were correct, the patient tolerated well the procedure was transferred to the PACU in stable condition.
--- NOTE | 2024-08-14 14:55 | ANE.PACU2 ---
Inpatient post-anesthesia follow up: Airway intact: Yes Vital signs: Temperature 97.8 F Pulse Rate 78 Respiratory Rate 20 Blood Pressure 168/83 Pulse Oximetry 96 Oxygen Delivery Me thod Nasal Cannula Oxygen Flow Rate 2 Fraction of Inspir ed Oxygen Hydration adequate: Yes Nausea and vomiting: No Pain level: 1 Mental status: Baseline
== END 2024-08-14 14:55 | disposition home or self-care (01) ==
PROVIDERS: Anesthesiology; PCP Family Medicine; Visit Provider Surgery
PROC: (CPT 36558; principal; 2024-08-14 12:45)
DX: I12.0 Hypertensive chronic kidney disease with stage 5 chronic kidney disease or end stage renal disease (principal); N18.6 End stage renal disease; J44.9 Chronic obstructive pulmonary disease, unspecified; E78.5 Hyperlipidemia, unspecified; E66.01 Morbid (severe) obesity due to excess calories; Z68.41 Body mass index [BMI] 40.0-44.9, adult; I25.10 Atherosclerotic heart disease of native coronary artery without angina pectoris; F17.290 Nicotine dependence, other tobacco product, uncomplicated; M06.9 Rheumatoid arthritis, unspecified; G47.33 Obstructive sleep apnea (adult) (pediatric); E03.9 Hypothyroidism, unspecified; N25.81 Secondary hyperparathyroidism of renal origin; Z86.73 Personal history of transient ischemic attack (TIA), and cerebral infarction without residual deficits; K21.9 Gastro-esophageal reflux disease without esophagitis; Z79.899 Other long term (current) drug therapy; Z79.82 Long term (current) use of aspirin; Z79.890 Hormone replacement therapy; Z88.2 Allergy status to sulfonamides; Z88.0 Allergy status to penicillin; Z88.8 Allergy status to other drugs, medicaments and biological substances
CPT/HCPCS: 36558; 71045; 77001; 80048; 85025; C1750; J1644; J2250; J2704; J3490; J7030; J9999

== ENCOUNTER → 2024-08-23 15:46 | Outpatient (BNVA) | payer MEDICARE, MEDICAID, SELFPAY | PROVIDERS: PCP Family Medicine; Visit Provider Nurse Practitioner Family | DX: I12.9 Hypertensive chronic kidney disease with stage 1 through stage 4 chronic kidney disease, or unspecified chronic kidney disease (principal); F17.290 Nicotine dependence, other tobacco product, uncomplicated; N18.4 Chronic kidney disease, stage 4 (severe); Z99.2 Dependence on renal dialysis; I48.91 Unspecified atrial fibrillation; D64.9 Anemia, unspecified | CPT/HCPCS: 99214 ==

== ENCOUNTER → 2024-09-05 08:59 | Outpatient (BNVA) | payer MEDICARE, MEDICAID, SELFPAY | PROVIDERS: PCP Family Medicine; Visit Provider Surgery | DX: N18.4 Chronic kidney disease, stage 4 (severe) (principal); Z99.2 Dependence on renal dialysis | CPT/HCPCS: 99024; 99213 ==

== ENCOUNTER → 2024-12-12 15:22 | Outpatient (BNVA) | payer OTHER, MEDICAID, SELFPAY | PROVIDERS: PCP Family Medicine; Visit Provider Internal Medicine Cardiovascular Disease | DX: I71.40 Abdominal aortic aneurysm, without rupture, unspecified (principal); I35.0 Nonrheumatic aortic (valve) stenosis; I12.9 Hypertensive chronic kidney disease with stage 1 through stage 4 chronic kidney disease, or unspecified chronic kidney disease; R60.0 Localized edema; N18.4 Chronic kidney disease, stage 4 (severe); I48.91 Unspecified atrial fibrillation | CPT/HCPCS: 99214 ==

== ENCOUNTER → 2025-02-09 08:18 | Outpatient (BNVA) | payer OTHER, MEDICAID, SELFPAY | PROVIDERS: PCP Family Medicine; Visit Provider Thoracic Surgery (Cardiothoracic Vascular Surgery) | DX: I96 Gangrene, not elsewhere classified (principal); T81.31XD Disruption of external operation (surgical) wound, not elsewhere classified, subsequent encounter; Y83.8 Other surgical procedures as the cause of abnormal reaction of the patient, or of later complication, without mention of misadventure at the time of the procedure | CPT/HCPCS: 11042; 99213; A6212 ==

== ENCOUNTER → 2025-02-16 08:20 | Outpatient (BNVA) | payer OTHER, MEDICAID, SELFPAY | PROVIDERS: PCP Family Medicine; Visit Provider Thoracic Surgery (Cardiothoracic Vascular Surgery) | DX: I96 Gangrene, not elsewhere classified (principal); T81.31XD Disruption of external operation (surgical) wound, not elsewhere classified, subsequent encounter; Y83.8 Other surgical procedures as the cause of abnormal reaction of the patient, or of later complication, without mention of misadventure at the time of the procedure | CPT/HCPCS: 97597 ==

== ENCOUNTER → 2025-02-23 08:21 | Outpatient (BNVA) | payer OTHER, MEDICAID, SELFPAY | PROVIDERS: PCP Family Medicine; Visit Provider Thoracic Surgery (Cardiothoracic Vascular Surgery) | DX: I96 Gangrene, not elsewhere classified (principal); T81.31XD Disruption of external operation (surgical) wound, not elsewhere classified, subsequent encounter; Y83.8 Other surgical procedures as the cause of abnormal reaction of the patient, or of later complication, without mention of misadventure at the time of the procedure | CPT/HCPCS: 97597; A6210 ==

== ENCOUNTER → 2025-03-02 08:44 | Outpatient (BNVA) | payer OTHER, MEDICAID, SELFPAY | PROVIDERS: PCP Family Medicine; Visit Provider Thoracic Surgery (Cardiothoracic Vascular Surgery) | DX: I96 Gangrene, not elsewhere classified (principal); T81.31XD Disruption of external operation (surgical) wound, not elsewhere classified, subsequent encounter; Y83.8 Other surgical procedures as the cause of abnormal reaction of the patient, or of later complication, without mention of misadventure at the time of the procedure | CPT/HCPCS: 97597 ==

== ENCOUNTER 2025-05-08 13:13 | Outpatient (CLI) | payer OTHER, MEDICAID, SELFPAY ==
--- NOTE | 2025-05-08 13:30 | USCV_ITS ---
Mahnaz Magallanes Age: 79 Gender: F : 1945 Exam Date: 05/08/2025 13:33 Ordering Phys: González Whitten MD ([email or web address]) Technologist: BERNIE Exam Location: [facility] [place] Indication: AAA HISTORY: Diameter (cm) AP x Transverse x Length Velocity (cm/s) Waveform Prox Aorta: 3.62 x 3.90 x 6.10 133.40 Triphasic Mid Aorta: 2.40 x 2.60 x 144.90 Triphasic Distal Aorta: 2.50 x 2.40 x 131.90 Triphasic Right Iliac Prox: 0.85 x 0.96 x 72.60 Triphasic Left Iliac Prox: 0.83 x 0.85 x 205.10 Triphasic Stent Prox Landing x x Aneurysmal Sac Max x x Lt Lat Sac Dim Rt Lat Sac Dim Stent Dist Landing x x Right Iliac Stent x x Left Iliac Stent x x Right Renal Art Left Renal Art FINDINGS: Comparison:. 05/01/24 A complete assessment of the abdominal aorta was not possible. Ectatic abdominal aorta with evidence of atherosclerotic plaque noted. A small (diameter 3.0-4.0 cm) abdominal aortic aneurysm is noted with a maximal diameter of 3.9 cm. Minimal change in diameter. There is evidence of atherosclerotic plaque no significan stenosis in the right common iliac artery. There is evidence of atherosclerotic plaque no significan stenosis in the left common iliac artery. CONCLUSIONS AAA, 3.9 cm, minimal increase in size . Dr. Annamarie Neri DO (Electronically Signed) Final Date: 08 May 2025 14:52 S
== END 2025-05-08 13:14 | disposition home or self-care (01) ==
LOC: RAD 13:14
PROVIDERS: PCP Family Medicine; Visit Provider Internal Medicine Cardiovascular Disease
DX: I71.40 Abdominal aortic aneurysm, without rupture, unspecified (principal); I70.0 Atherosclerosis of aorta
CPT/HCPCS: 93978